=== PATIENT | male | born 1935 | race Caucasian/White ===

== ENCOUNTER → 2017-12-07 | Outpatient (CLI) | payer MEDICARE ==
[~2017-12-07] MED LIST: ACE325 PO; AMLO-96 PO; ASP325 PO; ASPI-879 PO; ATEN-1 PO; ATEN100T93 PO; BUM2 PO; CHOL10005 PO; CHOL100094 PO; DIA5 PO; DIAZ-308 PO; DICY20TA70 PO; DIG25 PO; DIGO250T76 PO; DULO30CA35 PO; DULO60CA56 PO; EZE10 PO; FEN145 PO; FENO145T PO; FIB PO; FLAX100030 PO; FLU45SYR17 IM; FURO-47 PO; GABA-547 PO; GABA-549 PO; GARL400T18 PO; GLUC-307 PO; HYDR-385 PO; LISI-349 PO; LISI-362 PO; LISI20TA29 PO; MAGN300C3 PO; MET60GMPT TOP; METF-410 PO; METF-420 PO; METF500T4 PO; METH4TAB66 PO; METR45CR9 TP; MULT-923 PO; NOR10 PO; NOR25 PO; OMEG-11 PO; OMEP-137 PO; OMEP-218 PO; PER PO; PHEN16.225 PO; PNEU0.5D3 IM; POTA-28 PO; POTA8TAB41 PO; PRE20 PO; SIL50 PO; SIMV-42 PO; SPIR25TA78 PO; TRAM-420 PO; TRIC15T TOP; TUM500 PO; WARF-12 PO; WARF-18 PO; WARF2.5T4 PO; [UNRECOGNIZED DRUG - CODE] PO; [UNRECOGNIZED DRUG - CODE] PO
[2017-12-07 11:31] LABS: PLATELET COUNT, AUTOMATED 289 K/uL (150-450)
== END ==
LOC: LAB 11:14
PROVIDERS: ATTEND Internal Medicine Nephrology
DX: I12.9 Hypertensive chronic kidney disease with stage 1 through stage 4 chronic kidney disease, or unspecified chronic kidney disease (principal); N18.3 Chronic kidney disease, stage 3 (moderate); E55.9 Vitamin D deficiency, unspecified
CPT/HCPCS: 36415; 82040; 82310; 82374; 82435; 82565; 82947; 84100; 84132; 84295; 84520; 85025

== ENCOUNTER → 2017-12-20 | Outpatient (CLI) | payer MEDICARE | LOC: LAB 13:59 | PROVIDERS: ATTEND Internal Medicine Nephrology | DX: I12.9 Hypertensive chronic kidney disease with stage 1 through stage 4 chronic kidney disease, or unspecified chronic kidney disease (principal); N18.3 Chronic kidney disease, stage 3 (moderate); R60.0 Localized edema; G25.81 Restless legs syndrome; D63.1 Anemia in chronic kidney disease | CPT/HCPCS: 36415; 82310; 82374; 82435; 82565; 82728; 82947; 83540; 83550; 84132; 84295; 84520 ==

== ENCOUNTER 2017-12-31 13:45 | Outpatient (RCR) | payer MEDICARE ==
--- NOTE | 2017-10-08 11:14 | PT INITIAL EVALUATION ---
MEDICAL DIAGNOSIS: pulmonary hypertension TREATMENT DIAGNOSIS: same, low back pain with radiating pain DATE OF ONSET: 10/07/14 SUBJECTIVE: Casey Pfeiffer presents to physical therapy with complaints of pulmonary hypertension and low back pain with radiating pain that started approximately 2-3 years ago. He reports that his low back pain has gotten so back that he can no longer sit on his bike and exercise. He states that he has a history of scoliosis and post-polio syndrome. He states that with post- polio syndrome you do not want to overdo it or else you will lose all your function. He states that his low back pain becomes worse with walking and better with sitting with his heating pain. He rates his pain with walking to be 9/10. He rates his usual pain while sitting with a heating pad to be 1-2/ 10. Furthermore, he rates his pain when he is not using the heating pad while siting to be 4-5/10. Pain location is L4-5, B PSIS and radiates down his R thigh to posterior capsule and described as achy/sharp. REHAB PROBLEM LIST: Increased Pain Decreased ROM Decreased Strength Decreased Endurance Decreased Balance Decreased Function Decreased ADL's Decreased Mobility Decreased Gait PREVIOUS MEDICAL HISTORY: See EMR OCCUPATION: Retired OBJECTIVE: Posture: B rounded shoulders, increased thoracic kyphosis, and decreased lumbar lordosis ROM: Trunk AROM: flexion: NIL with normal end feel. extension: NIL with normal end feel. R sidegliding: NIL with empty end feel. L sidegliding: NIL with empty end feel Strength: B LEs: 4/5 Palpation: TTP: over spinous process of L3-L5, PSIS which radiates to R thigh and into the R posterior capsule. Sensation: L1-S2 dermatomes intact Special Tests: Repeated trunk flexion: increased pain during and worse following movement. extension: increased pain during and better following movement. R and L sidegliding: increased pain during and worse following movements. Mobility: Independent Gait: With a cane, he demonstrated the following gait deviations: increased base of support, decreased B step lengths, decreased velocity, increased lateral trunk movement, decreased pelvic rotation, and no LOB during session. Other Objective Findings: Quadricep and achilles DTR's: 2+ bilaterally ASSESSMENT: Casey will benefit from skilled physical therapy to address the listed impairments to improve function and QOL. Based on signs and symptoms, it appears that he has a posterior derangement that centralized with extension based principles. Short Term Goals 3 weeks: She will demonstrate centralized low back pain to improve function and QOL. 6 weeks: She will demonstrate abolished low back pain to improve function function and return to prior level of function. Patient's Goals reduce back pain and then improve endurance PLAN: Patient to be seen for Manual Therapy/STM/MET Strengthening/condition Ice/Heat Range of Motion Spinal Stabilization Work Hardening/Cond Stretching Neuromuscular Re-ed Closed Chain Program Electrical Stim Posture/Body mechanics Gait Trg/Balance Trg Home Exercise Program Therapeutic Activities 2x/Week for 6 Weeks If you have any questions, comments, or concerns about this report or plan, please contact me at . Thank you, Joselito Diaz, PT, DPT ROBBD
--- NOTE | 2017-11-11 18:06 | PT PLAN OF CARE ---
Physician: Alexandr Moreira MD Patient is being seen: 2x/week Therapist: Joselito Diaz, PT, DPT Medical Diagnosis: pulmonary hypertension Treatment Diagnosis: same, low back pain with radiating pain Date of Onset: 10/07/14 Date of Initial Evaluation: 10/07/17 Date patient was last seen: 11/11/17 Number of treatments: 10 Number of cancellations/No shows: 0 INTERVENTIONS: Manual Therapy/STM/MET Strengthening/condition Ice/Heat Range of Motion Spinal Stabilization Work Hardening/Cond Stretching Neuromuscular Re-ed Closed Chain Program Electrical Stim Posture/Body mechanics Gait Trg/Balance Trg Home Exercise Program Therapeutic Activities Short Term Goals 3 weeks: She will demonstrate centralized low back pain to improve function and QOL. 6 weeks: She will demonstrate abolished low back pain to improve function function and return to prior level of function. Patient's Goals reduce back pain and then improve endurance Status of Patient's Goals: Progressing slowly Patient Compliance: Good Prognosis: Excellent Reasons for continuing therapy: This is a progress note for Casey Pfeiffer. He reports that he continues to perform his home exercise. He states that the pain continues to centralize and peripheralize depending on the activities that he is performing. He states that sleeping continues to peripheralize his pain and performing his home exercise centralized his low back pain. He rates his pain be 4-5/10. He continues to centralize with prone press ups with his hips shifted to the left. He continues to improve trunk AROM in all directions following each PT session. Furthermore, since we can not maintain the centralized low back pain for more than a day, I feel like the prognosis of eliminating his pain is decreased, however, he continues to demonstrate centralized pain, which is a necessary characteristic to be classified as a derangement, which has a 90% chance of abolishing his low back and returning to prior level of function. We will continue to centralize low back pain and abolish low back pain and then recovery his function to return to prior level of function. OBJECTIVE: Posture: B rounded shoulders, increased thoracic kyphosis, and decreased lumbar lordosis ROM: Trunk AROM: flexion: NIL with normal end feel. extension: NIL with normal end feel. R sidegliding: NIL with empty end feel. L sidegliding: NIL with empty end feel Strength: B LEs: 4/5 Palpation: TTP: over spinous process of L3-L5, PSIS which radiates to R thigh and into the R posterior capsule. Sensation: L1-S2 dermatomes intact Special Tests: Repeated trunk flexion: increased pain during and worse following movement. extension: increased pain during and better following movement. R and L sidegliding: increased pain during and worse following movements. Mobility: Independent Gait: With a cane, he demonstrated the following gait deviations: increased base of support, decreased B step lengths, decreased velocity, increased lateral trunk movement, decreased pelvic rotation, and no LOB during session. Other Objective Findings: Quadricep and achilles DTR's: 2+ bilaterally If you have any questions, comments, or concerns about this report or plan, please contact me at . Thank you, Joselito Diaz, PT, DPT ROBBD
--- NOTE | 2017-12-17 15:14 | PT PLAN OF CARE ---
Physician: Alexandr Moreira MD Patient is being seen: 2x/week Therapist: Joselito Diaz, PT, DPT Medical Diagnosis: pulmonary hypertension Treatment Diagnosis: same, low back pain with radiating pain Date of Onset: 10/07/14 Date of Initial Evaluation: 10/07/17 Date patient was last seen: 12/17/17 Number of treatments: 20 Number of cancellations/No shows: 0 INTERVENTIONS: Manual Therapy/STM/MET Strengthening/condition Ice/Heat Range of Motion Spinal Stabilization Work Hardening/Cond Stretching Neuromuscular Re-ed Closed Chain Program Electrical Stim Posture/Body mechanics Gait Trg/Balance Trg Home Exercise Program Therapeutic Activities Short Term Goals 3 weeks: She will demonstrate centralized low back pain to improve function and QOL. 6 weeks: She will demonstrate abolished low back pain to improve function function and return to prior level of function. Patient's Goals reduce back pain and then improve endurance Status of Patient's Goals: Progressing slowly Patient Compliance: Good Prognosis: Excellent Reasons for continuing therapy: This is a progress note for Casey Moore. He reports that he continues to perform his home exercise. He states that the pain continues to centralize and peripheralize depending on the activities that he is performing. He states that sleeping continues to peripheralize his pain and performing his home exercise centralized his low back pain. He reports that he continues to perform his specific exercise with good results, however, he reports that walking continues to be painful and has not improved. He rates his pain to be 2-4/10 in the centralized low back region. He continues to demonstrate centralization with his low back pain with increased trunk AROM in all directions, however, the reduction has not fully occurred. However, if it does not fully reduce in the next few weeks that signs and symptoms are pointing to the possibility of spinal stenosis and not true mechanical pain. OBJECTIVE: Posture: B rounded shoulders, increased thoracic kyphosis, and decreased lumbar lordosis ROM: Trunk AROM: flexion: NIL with normal end feel. extension: NIL with normal end feel. R sidegliding: NIL with empty end feel. L sidegliding: NIL with empty end feel Strength: B LEs: 4/5 Palpation: TTP: over spinous process of L3-L5, PSIS which radiates to R thigh and into the R posterior capsule. Sensation: L1-S2 dermatomes intact Special Tests: Repeated trunk flexion: increased pain during and worse following movement. extension: increased pain during and better following movement. R and L sidegliding: increased pain during and worse following movements. Mobility: Independent Gait: With a cane, he demonstrated the following gait deviations: increased base of support, decreased B step lengths, decreased velocity, increased lateral trunk movement, decreased pelvic rotation, and no LOB during session. Other Objective Findings: Quadricep and achilles DTR's: 2+ bilaterally If you have any questions, comments, or concerns about this report or plan, please contact me at . Thank you, Joselito Diaz, PT, DPT MTDD
[~2017-12-31 13:45] MED LIST changes: -WARF-18 PO; +WARF5TAB23 PO
--- NOTE | 2017-12-31 14:46 | PT PLAN OF CARE ---
Physician: Alexandr Moreira MD Patient is being seen: 2x/week Therapist: Joselito Diaz, PT, DPT Medical Diagnosis: pulmonary hypertension Treatment Diagnosis: same, low back pain with radiating pain Date of Onset: 10/07/14 Date of Initial Evaluation: 10/07/17 Date patient was last seen: 12/31/17 Number of treatments: 23 Number of cancellations: 1 INTERVENTIONS: Manual Therapy/STM/MET Strengthening/condition Ice/Heat Range of Motion Spinal Stabilization Work Hardening/Cond Stretching Neuromuscular Re-ed Closed Chain Program Electrical Stim Posture/Body mechanics Gait Trg/Balance Trg Home Exercise Program Therapeutic Activities Short Term Goals 3 weeks: She will demonstrate centralized low back pain to improve function and QOL.MET 6 weeks: She will demonstrate abolished low back pain to improve function function and return to prior level of function. Not Met, but progressing toward it and he will meet the goal in two weeks or less Patient's Goals reduce back pain and then improve endurance Status of Patient's Goals: Progressed well Patient Compliance: Good Prognosis: Excellent Reasons for continuing therapy: This is a discharge note for Casey Pfeiffer. He reports that he is doing really well. He states that he has gone periods with 0/ 10 low back pain. He reports that he continues to do his specific exercise every 2-3 hours with good results. He reports that he is walking much better and longer distances with decreased pain. Claude has progressed well within PT. He has demonstrated the following improvements: increased trunk AROM in all directions with normal end feels, centralized low back pain, and abolished radiating pain. Furthermore, he continues to have some centralized low back pain , however, if he continues his specific exercise as prescribed, I am 100% confident that his pain will completely resolve in the next two weeks and he has received the necessary education to prevent reoccurrences and how to manage the low back pain if it returns in the future. He feels that he can manage the rest of his care at home. As a result, he will be discharged from formal PT. OBJECTIVE: Posture: B rounded shoulders, increased thoracic kyphosis, and decreased lumbar lordosis ROM: Trunk AROM: flexion: NIL with normal end feel. extension: NIL with normal end feel. R sidegliding: NIL with normal end feel. L sidegliding: NIL with normal end feel Strength: B LEs: 4+/5 Palpation: TTP: over spinous process of L3-L5 Sensation: L1-S2 dermatomes intact Special Tests: Repeated trunk flexion: increased pain during and worse following movement. extension: increased pain during and better following movement. R and L sidegliding: increased pain during and worse following movements. Mobility: Independent Gait: With a cane, he demonstrated the following gait deviations: increased base of support, decreased B step lengths, decreased velocity, increased lateral trunk movement, decreased pelvic rotation, and no LOB during session. Other Objective Findings: Quadricep and achilles DTR's: 2+ bilaterally If you have any questions, comments, or concerns about this report or plan, please contact me at . Thank you, Joselito Diaz, PT, DPT ROBBD
== END 2017-12-31 18:00 | disposition home or self-care (01) ==
LOC: PT 13:45
PROVIDERS: ATTEND Internal Medicine
DX: R06.02 Shortness of breath (principal); I27.20 Pulmonary hypertension, unspecified; M54.41 Lumbago with sciatica, right side; M41.9 Scoliosis, unspecified; Z99.81 Dependence on supplemental oxygen; Z86.12 Personal history of poliomyelitis
CPT/HCPCS: 97162

== ENCOUNTER → 2018-01-04 | Outpatient (RCR) | payer MEDICARE | LOC: RESP 11-30 08:52 | PROVIDERS: ATTEND Internal Medicine | DX: I27.20 Pulmonary hypertension, unspecified (principal) | CPT/HCPCS: 94618; G0239 ==

== ENCOUNTER → 2018-01-19 | Outpatient (CLI) | payer MEDICARE | LOC: LAB 14:08 | PROVIDERS: ATTEND Internal Medicine Nephrology | DX: N18.3 Chronic kidney disease, stage 3 (moderate) (principal) | CPT/HCPCS: 36415; 82310; 82374; 82435; 82565; 82947; 84132; 84295; 84520 ==

== ENCOUNTER 2018-02-15 09:00 | Outpatient (RCR) | payer MEDICARE ==
[~2018-02-15 09:00] MED LIST changes: -FENO145T PO; +FENO145T36 PO
== END 2018-02-17 ==
LOC: RESP 09:00
PROVIDERS: ATTEND Internal Medicine
DX: I27.0 Primary pulmonary hypertension (principal)
CPT/HCPCS: 94618; 94667; G0239

== ENCOUNTER → 2018-05-02 | Outpatient (CLI) | payer MEDICARE ==
[~2018-05-02] MED LIST changes: -METF-410 PO; +METF-411 PO
--- NOTE | 2018-05-02 16:25 | EKG ---
FACILITY: [facility] - [place] PATIENT NAME: UNRULY EDWARDS : [id number] MR: [id number] V: [id number] EXAM DATE: ORDERING PHYSICIAN: LAURYN ARAIZA TECHNOLOGIST: SMITHARN Test Reason : CHEST PAIN Blood Pressure : / mmHG Vent. Rate : 052 BPM Atrial Rate : 053 BPM P-R Int : 000 ms QRS Dur : 116 ms QT Int : 428 ms P-R-T Axes : 000 -29 -54 degrees QTc Int : 398 ms Atrial fibrillation Nonspecific ST abnormality Abnormal ECG No previous ECGs available Confirmed by AILYN DE LA CRUZ ([id number]) on 05/03/2018 6:02:13 AM Referred By: LAURYN ARAIZA Confirmed By:AILYN DE LA CRUZ
== END ==
LOC: LAB 15:22
PROVIDERS: ATTEND Nurse Practitioner Family
DX: R94.31 Abnormal electrocardiogram [ECG] [EKG] (principal); R07.9 Chest pain, unspecified
CPT/HCPCS: 36415; 82040; 82247; 82310; 82374; 82435; 82565; 82947; 83036; 84075; 84132; 84155; 84295; 84450; 84460; 84484; 84520

== ENCOUNTER → 2018-06-10 | Outpatient (CLI) | payer MEDICARE ==
[~2018-06-10] MED LIST changes: +BUS5 PO; +FENO160T11 PO; +SPIR25TA80 PO
[2018-06-10 09:33] LABS: PLATELET COUNT, AUTOMATED 242 K/uL (150-450)
[2018-06-10 10:10] LABS: LDL CHOLESTEROL 121 mg/dl
== END ==
LOC: LAB 09:10
PROVIDERS: ATTEND Internal Medicine
DX: I48.91 Unspecified atrial fibrillation (principal); N18.3 Chronic kidney disease, stage 3 (moderate); E11.9 Type 2 diabetes mellitus without complications; R60.9 Edema, unspecified; I27.20 Pulmonary hypertension, unspecified
CPT/HCPCS: 36415; 80162; 81001; 83036; 84443; 85025; G0103; 82040; 82247; 82310; 82374; 82435; 82465; 82565; 82947; 83718; 84075; 84132; 84153; 84155; 84295; 84450; 84460; 84478; 84520

== ENCOUNTER → 2018-06-27 | Outpatient (CLI) | payer MEDICARE | LOC: LAB 10:32 | PROVIDERS: ATTEND Internal Medicine Nephrology | DX: N18.3 Chronic kidney disease, stage 3 (moderate) (principal) | CPT/HCPCS: 36415; 82040; 82310; 82374; 82435; 82565; 82728; 82947; 83540; 83550; 84100; 84132; 84295; 84520; 85027 ==

== ENCOUNTER → 2018-08-24 | Outpatient (CLI) | payer MEDICARE ==
[~2018-08-24] MED LIST changes: +AMLO-111 PO; -AMLO-96 PO; -METF-411 PO; +METF-450 PO
--- NOTE | 2018-08-24 12:17 | RADIOLOGY IMAGING REPORT ---
FACILITY: [facility] - [place] PATIENT NAME: Casey Pfeiffer : 1935 MR: [id number] V: [id number] EXAM DATE: ORDERING PHYSICIAN: CRISTIAN WASSERMAN TECHNOLOGIST: Location: [facility] Patient: Casey Pfeiffer : 1935 Visit/Account:[id number] Date of Sevice: 08/24/2018 Right upper extremity venous Doppler duplex ultrasound scan. HISTORY: Localized right upper extremity swelling, contusion. COMPARISON: None. A venous color flow Doppler duplex ultrasound scan with spectral analysis was performed on the upper extremity. The basilic vein, brachial veins, cephalic vein, axillary vein and internal jugular vein are unremarkable. The lateral aspect of the subclavian vein is unremarkable. The medial aspect of t he subclavian vein, the innominate vein, and the superior vena cava are obscured. A heterogeneous mass probably representing a hematoma measuring 3.9 x 2.7 x 2.4 cm is present in the soft tissues of the right forearm. Note that Doppler ultrasound is insensitive for evaluating the central veins of the chest. IMPRESSION: Right forearm mass suggesting a hematoma. Other etiologies are not excluded. Clinical correlation i s suggested. Negative for acute deep vein thrombosis. Report Dictated By: Doroteo Anne MD at 08/24/2018 12:09 PM Report E-Signed By: Doroteo Anne MD at 08/24/2018 12:12 PM WSN:[id number]
== END ==
LOC: US 10:49
PROVIDERS: ATTEND Physician Assistant
DX: S50.11XA Contusion of right forearm, initial encounter (principal); R22.31 Localized swelling, mass and lump, right upper limb; M79.81 Nontraumatic hematoma of soft tissue
CPT/HCPCS: 93970

== ENCOUNTER → 2018-09-21 | Outpatient (CLI) | payer MEDICARE ==
[~2018-09-21] MED LIST changes: +FLUT16SP19 NS; +PRAM0.1225 PO
[2018-09-21 12:28] LABS: PLATELET COUNT, AUTOMATED 271 K/uL (150-450)
[2018-09-21 12:54] LABS: LDL CHOLESTEROL 99 mg/dl
== END ==
LOC: LAB 11:45
PROVIDERS: ATTEND Internal Medicine
DX: I48.91 Unspecified atrial fibrillation (principal); N18.3 Chronic kidney disease, stage 3 (moderate); E11.9 Type 2 diabetes mellitus without complications; R60.9 Edema, unspecified; I27.20 Pulmonary hypertension, unspecified; I83.009 Varicose veins of unspecified lower extremity with ulcer of unspecified site
CPT/HCPCS: 36415; 80162; 82040; 82247; 82310; 82374; 82435; 82465; 82565; 82947; 83036; 83718; 84075; 84132; 84155; 84295; 84443; 84450; 84460; 84478; 84520; 84550; 85025

== ENCOUNTER 2018-10-10 14:23 | Outpatient (RCR) | payer MEDICARE | END 2018-10-10 14:24 | disposition home or self-care (01) | LOC: PT 14:23 | PROVIDERS: ATTEND Internal Medicine | DX: Z02.9 Encounter for administrative examinations, unspecified (principal) ==

== ENCOUNTER → 2019-01-23 | Outpatient (CLI) | payer MEDICARE ==
[~2019-01-23] MED LIST changes: -AMLO-111 PO; +AMLO-125 PO
== END ==
LOC: LAB 10:15
PROVIDERS: ATTEND Internal Medicine Nephrology
DX: I12.9 Hypertensive chronic kidney disease with stage 1 through stage 4 chronic kidney disease, or unspecified chronic kidney disease (principal); N40.0 Benign prostatic hyperplasia without lower urinary tract symptoms; N18.3 Chronic kidney disease, stage 3 (moderate); I48.2 Chronic atrial fibrillation; R60.0 Localized edema; E78.5 Hyperlipidemia, unspecified; E55.9 Vitamin D deficiency, unspecified
CPT/HCPCS: 36415; 80162; 82040; 82306; 82310; 82374; 82435; 82565; 82570; 82947; 83970; 84100; 84132; 84156; 84295; 84520; 85018

== ENCOUNTER → 2019-02-28 | Outpatient (CLI) | payer MEDICARE ==
[~2019-02-28] MED LIST changes: +BLOO-1318 MC; +BLOO-960 MC; +FLAS1EAC2 TD; +FLAS1KIT2; +INSU100I30 SQ; +LANC-1149 MC; +NEED-498 MC; +QUET25TA30 PO
[2019-02-28 08:52] LABS: PLATELET COUNT, AUTOMATED 284 K/uL (150-450)
--- NOTE | 2019-02-28 09:37 | RADIOLOGY IMAGING REPORT ---
FACILITY: [facility] [place] PATIENT NAME: Casey Pfeiffer : 1935 MR: [id number] V: [id number] EXAM DATE: ORDERING PHYSICIAN: ELGIN WEI TECHNOLOGIST: Location: [facility] - [place] Patient: Casey Pfeiffer : 1935 Visit/Account:[id number] Date of Sevice: 02/28/2019 Exam type: CHEST PA LAT History: Dyspnea Comparison: July 12, 2015. Findings: The lungs are free of acute effusions, infiltrates or edema. Cardiac silhouette is mildly enlarged. There is moderate ectasia the thoracic aorta. The nodular density projecting over the right lung ba se appears stable when compared the prior study and is likely a nipple shadow since the prior CT the chest demonstrated no pulmonary nodule in this location. There are moderate spondylotic changes of t he thoracic spine. IMPRESSION: 1. No evidence of acute pulmonary consolidation Cardiac silhouette is mildly enlarged although unchanged Report Dictated By: Shelia Garcia MD at 02/28/2019 9:12 AM Report E-Signed By: Shelia Garcia MD at 02/28/2019 9:32 AM WSN:[email or web address]
== END ==
LOC: LAB 08:25
PROVIDERS: ATTEND Internal Medicine
DX: N18.3 Chronic kidney disease, stage 3 (moderate) (principal); E11.9 Type 2 diabetes mellitus without complications; R94.6 Abnormal results of thyroid function studies; I10 Essential (primary) hypertension; N40.0 Benign prostatic hyperplasia without lower urinary tract symptoms; I48.91 Unspecified atrial fibrillation; Z79.899 Other long term (current) drug therapy; Z51.81 Encounter for therapeutic drug level monitoring; R06.00 Dyspnea, unspecified
CPT/HCPCS: 36415; 71046; 80162; 81001; 82040; 82247; 82310; 82374; 82435; 82465; 82565; 82607; 82746; 82947; 83036; 83718; 84075; 84132; 84153; 84155; 84295; 84443; 84450; 84460; 84478; 84520; 85025

== ENCOUNTER → 2019-03-02 | Outpatient (CLI) | payer MEDICARE ==
[~2019-03-02] MED LIST changes: +ACET500T68 PO; +CALC-515 PO; +CALC625T57 PO; +CHON400C PO; +FLAX100041 PO; +GLUC100026 PO; +MAGN400T10 PO; +MULT-27 PO; +OMEG-5 PO; +ZINC50TA2 PO; +[UNRECOGNIZED DRUG - CODE] PO
--- NOTE | 2019-03-03 09:42 | EKG ---
FACILITY: [facility] - [place] PATIENT NAME: UNRULY EDWARDS : [id number] MR: [id number] V: [id number] EXAM DATE: ORDERING PHYSICIAN: ELGIN WEI TECHNOLOGIST: MARIIA Test Reason : CHEST PAIN Blood Pressure : / mmHG Vent. Rate : 056 BPM Atrial Rate : 062 BPM P-R Int : 000 ms QRS Dur : 122 ms QT Int : 418 ms P-R-T Axes : 000 -29 -09 degrees QTc Int : [address] and T wave abnormality, consider anterior ischemia Abnormal ECG When compared with ECG of 02-MAY-2018 14:33, T wave inversion now evident in Anterior leads Confirmed by ELGIN WEI ([id number]) on 03/06/2019 1:06:29 PM Referred By: MARLEY Confirmed By:ELGIN WEI
== END ==
LOC: RESP 15:53
PROVIDERS: ATTEND Internal Medicine
DX: R94.31 Abnormal electrocardiogram [ECG] [EKG] (principal)

== ENCOUNTER → 2019-03-03 | Outpatient (CLI) | payer MEDICARE ==
--- NOTE | 2019-03-03 12:01 | RADIOLOGY IMAGING REPORT ---
FACILITY: [facility] - [place] PATIENT NAME: Casey Pfeiffer : 1935 MR: [id number] V: [id number] EXAM DATE: ORDERING PHYSICIAN: ELGIN WEI TECHNOLOGIST: Location: [facility] Patient: Casey Pfeiffer : 1935 Visit/Account:[id number] Date of Sevice: 03/03/2019 Examination: MR brain without contrast History: Change in mental status Comparison: None Technique: Sagittal T1, axial diffusion, axial FLAIR and axial T2 acquisitions obtained through the b rain. No additional sequences obtained as the patient cannot tolerate further imaging. Findings: Diffusion: None Ventricles: Normal Midline shift: None Extraaxial fluid: None. Midline craniocervical structures: Degenerative pannus posterior to the dens, otherwise unremarkable. Parenchyma: A few scattered punctate white matter high signal foci. Minimal to mild confluent perive ntricular white matter high signal. Vascular flow voids: Normal Orbits and paranasal sinuses: Normal Other: No significant additional finding. Impression: 1. No acute intracranial abnormality. 2. Minimal to mild chronic small vessel ischemic change. 3. No gradient acquisition obtained as the patient was unable to tolerate a complete scan. 4. Otherwise unremarkable brain MR. Report Dictated By: Chaim Johnson MD at 03/03/2019 11:52 AM Report E-Signed By: Chaim Johnson MD at 03/03/2019 11:56 AM WSN:[id number]
== END ==
LOC: MRI 06:50
PROVIDERS: ATTEND Internal Medicine
DX: R41.82 Altered mental status, unspecified (principal)
CPT/HCPCS: 70551

== ENCOUNTER 2019-03-04 05:26 | Inpatient (IN) | payer MEDICARE ==
[~2019-03-04] VITALS: Ht 182.9 cm; Wt 127.1 kg
[~2019-03-04 05:26] MED LIST changes: -ACET500T68 PO; -CALC-515 PO; -CALC625T57 PO; -CHON400C PO; -FLAX100041 PO; -GLUC100026 PO; -MAGN400T10 PO; -MULT-27 PO; -OMEG-5 PO; -ZINC50TA2 PO; -[UNRECOGNIZED DRUG - CODE] PO
--- NOTE | 2019-03-04 05:33 | ER Report ---
History and Physical Time Seen By MD: 05:31 (NEGRO JEAN DO) HPI/ROS CHIEF COMPLAINT: Altered mental status HISTORY OF PRESENT ILLNESS: 83-year-old male brought in by his family with altered mental status and agitation. Patient had several of his psychiatric medications withdrawn. He said new medications added. Patient's also been taken off of his tramadol 50 mg 3 times a day, which is taken for 5 years for chronic pain treatment. Patient's not been able to sleep for the last 2 days. He's been restless and agitated. Complaining of pain, likely tramadol withdrawal. Family gave him a shot of alcohol last night to see if that would help him relax. Patient had a noncontrast brain MRI yesterday morning, which was unremarkable that's noted in the record. REVIEW OF SYSTEMS: Respiratory: No cough, no dyspnea. Cardiovascular: No chest pain, no palpitations. Gastrointestinal: No vomiting, no abdominal pain. Musculoskeletal: As above (NEGRO JEAN DO) Allergies: Coded Allergies: No Known Drug Allergies (Verified , 03/04/19) Home Meds Active Scripts Flash Glucose Sensor (Freestyle [place] 14 Day Sensor) 1 Each Kit, UNIT Q2WK, #2 11 Refills Prov:ELGIN MOREIRA MD 03/02/19 Flash Glucose Scanning [place] (Freestyle [place] 14 Day [place]) 1 Each Each, UNIT TD DIRECTED, #1 Prov:ELGIN MOREIRA MD 03/02/19 Lancets (ONE TOUCH LANCETS) 1 Each Each, EACH MC TID, #100 11 Refills Prov:ELGIN MOREIRA MD 03/02/19 One Touch Ultra Test Strips (ONE TOUCH ULTRA TEST STRIPS) 1 Each Strip, EACH MC ONCE, #100 11 Refills Prov:ELGIN MOREIRA MD 03/02/19 Blood-Glucose Meter (BLOOD GLUCOSE METER) 1 Each Each, EACH MC ONCE, #1 Prov:ELGIN MOREIRA MD 03/02/19 [place], Insulin Disposable (INSULIN PEN NEEDLE) 1 Each Dis.needle, EACH MC ONCE, #100 5 Refills Prov:ELGIN MOREIRA MD 03/02/19 Quetiapine Fumarate (SEROQUEL) 25 Mg Tablet, 25 MG PO QHS, #30 TAB 3 Refills Prov:ELGIN MOREIRA MD 03/02/19 Insulin Glargine 100 Un/Ml Pen (LANTUS SOLOSTAR PEN) 100 Unit/1 Ml Insuln.pen, 15 UNIT SQ HS, #5 BOX 3 Refills Prov:ELGIN MOREIRA MD 03/02/19 Warfarin Sodium (WARFARIN SODIUM) 5 Mg Tablet, 1 TAB PO QDAY, #90 TAB 3 Refills Prov:ELGIN MOREIRA MD 02/10/19 Fenofibrate (FENOFIBRATE) 160 Mg Tablet, 160 MG PO QDAY, #90 TAB 4 Refills Prov:ELGIN MOREIRA MD 02/06/19 Digoxin (DIGOXIN) 250 Mcg Tablet, 1 TAB PO QDAY, #90 TAB 1 Refill Prov:ELGIN MOREIRA MD 01/03/19 Atenolol (ATENOLOL) 50 Mg Tablet, 1 TAB PO QDAY, #90 TAB 4 Refills Prov:ELGIN MOREIRA MD 05/19/18 Lisinopril (LISINOPRIL) 10 Mg Tablet, 10 MG PO QDAY, #90 TAB 3 Refills Prov:ELGIN MOREIRA MD 05/18/18 Reported Medications Tramadol Hcl (TRAMADOL HCL) 50 Mg Tablet, 50 MG PO TID PRN for PAIN, TAB 03/04/19 Furosemide (FUROSEMIDE) 40 Mg Tablet, 1-2 TAB PO BID, TAB 03/04/19 Aspirin/Calcium Carbonate/Mag (ASPIRIN BUFFERED 325 MG TAB) 325 Mg Tablet, 325 MG PO DAILY 07/11/15 Cholecalciferol (Vitamin D3) (VITAMIN D3) 1,000 Unit Tablet, 1000 TAB PO QDAY, #100 TAB 4 Refills 03/14/15 Omeprazole (OMEPRAZOLE) 20 Mg Tablet.dr, 1 TAB PO DAILY, #100 TAB TAKE ONE TABLET BY MOUTH TWICE A DAY 03/14/15 Metronidazole (METROGEL) 60 Gm Gel, 60 GM TOP, GEL 06/27/14 Discontinued Scripts Furosemide (FUROSEMIDE) 40 Mg Tablet, 2-3 TAB PO BID, #540 TAB 2 Refills Prov:LIZETTE AMEZCUA PHARMD 11/28/18 Tramadol Hcl (TRAMADOL HCL) 50 Mg Tablet, 1 TAB PO TID PRN for pain, #90 TAB 5 Refills Prov:ELGIN MOREIRA MD 10/07/18 Duloxetine Hcl (CYMBALTA) 60 Mg Capsule., 60 MG PO QDAY, #90 CAP 1 Refill Prov:ELGIN MOREIRA MD 02/10/19 Dicyclomine Hcl (DICYCLOMINE HCL) 20 Mg Tablet, 1 TAB PO PRN, #90 TAB 1 Refill Prov:ELGIN MOREIRA MD 02/10/19 Buspirone Hcl (BUSPIRONE HCL) 5 Mg Tab, 5 MG PO BID PRN for anxiety, #60 TAB 5 Refills Prov:ELGIN MOREIRA MD 01/03/19 Fluticasone Prop 50 Mcg Ns (FLONASE 50 MCG NS) 16 Gm [place].susp, 2 SPRAYS NS QDAY, #1 BOT 3 Refills Prov:ELGIN MOREIRA MD 12/13/18 Pramipexole Di-Hcl (MIRAPEX) 0.125 Mg Tablet, 0.125 MG PO QHS PRN for RLS, #90 TAB 2 Refills Prov:ELGIN MOREIRA MD 10/03/18 Past Medical/Surgical History Past Medical History Neurologic: Reports hx of: neuropathy (numbness in feet and pain in hands. gabapentin started 01/06 with change to nortriptyline 05/06. more swelling with the gabapentin. 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 ) Cardiovascular: Reports hx of: atrial fibrillation (chronic since 1982. Had cardioversion without benefit. ) edema (chronic and 2 plus in both legs. ) hyperlipidemia (Tends to low HDL of 30. didn't tolerate statins. ) hypertension (Tx for many years. ) hypertriglyceridemia other CV history (normal myoview test in 2003. ) Respiratory: Reports hx of: pulmonary hypertension (mild by echo in 2003. ) other respiratory history (peak flow 430 in 2010. ) Gastrointestinal: Reports hx of: GERD (for years. ) Genitourinary: Reports hx of: benign prostatic hypertro (Has seen Dr. Long and benign prostate bx. ) chronic renal failure (Noted in . creat 1.4 in and 1.7 in 12/06. Sees Dr. 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 ) Musculoskeletal: Reports hx of: back pain (lumbar MRI in [address] Anguiano. Has DDD. ) neck pain (chronic. Has some numbness in fingers. Saw Dr. Yu in 2013. limited extens) Integumentary: Reports hx of: other integumentary hx (rash on chest treated with metrogel. ) Psychiatric: Reports hx of: depression (?. He feels potassium helps with mood. ) Endocrine: Reports hx of: obesity (noct. oximetry 91% in 2013. no evidence for apnea. ) other endocrine history (elevated glucose with a1c of 6.3 in 2008 so metformin started. ) Hematology/oncology (M): Denies hx of: prostate cancer Infectious disease: Reports hx of: other infectious disease (polio in 1946. right leg shorter and has a lift in right shoe. ) Events: REPORTS HX OF: Other events (abstracted 01/06. Annual in early 01/06. ) (NEGRO JEAN DO) Reviewed Nurses Notes: Yes Old Medical Records Reviewed: Yes (NEGRO JEAN DO) Hx Smoking: No Smoking Status: Never Smoker (NEGRO JEAN DO) Constitutional Vital Sign - Last 24 Hours 03/04/19 03/04/19 03/04/19 03/04/19 05:33 05:39 05:56 06:41 Temp 99.4 Pulse 74 97 99 Resp 24 B/P (MAP) 125/62 Pulse Ox 95 95 95 O2 Delivery Nasal Cannula O2 Flow Rate 3.0 03/04/19 03/04/19 03/04/19 03/04/19 06:56 07:01 07:16 07:31 Pulse 107 83 79 87 Pulse Ox 93 95 96 97 03/04/19 03/04/19 03/04/19 07:46 08:01 08:03 Pulse 77 74 B/P (MAP) 119/57 (77) Pulse Ox 94 96 (CONNIE PHELPS MD) Physical Exam General Appearance: The patient is alert, has no immediate need for airway protection and no current signs of toxicity., Agitated, restless HEENT: Pupils equal and round no injection. TMs normal, oropharynx with dry mucous membranes Respiratory: Chest is non tender, lungs are clear to auscultation. Cardiac: regular rate and rhythm Gastrointestinal: Abdomen is soft and non tender, no masses, bowel sounds normal. Musculoskeletal: Neck: Neck is supple and non tender. No thyromegaly Extremities have full range of motion and are non tender. 1+ edema bilaterally, stasis dermatitis changes Skin: No rashes or lesions. DIFFERENTIAL DIAGNOSIS: After history and physical exam differential diagnosis was considered for altered mental status including but not limited to hypoglycemia, infectious process, electrolyte abnormality,, medication withdrawal, medication side effect, medication adverse reaction head injury and intoxicants. (NEGRO JEAN DO) Medical Decision Making Data Points Result Diagram: 03/05/19 0708 03/05/19 0708 Laboratory Hematology Test 03/04/19 05:39 03/04/19 06:09 Red Blood Count 4.39 M/uL (4.00-5.60) Mean Corpuscular Volume 85.9 fL (80.0-96.0) Mean Corpuscular Hemoglobin 29.5 pg (26.0-33.0) Mean Corpuscular Hemoglobin Concent 34.4 g/dL (32.0-36.0) Red Cell Distribution Width 15.9 % (11.5-14.5) Mean Platelet Volume 8.0 fL (7.2-11.1) Neutrophils (%) (Auto) 66.6 % (39.4-72.5) Lymphocytes (%) (Auto) 21.7 % (17.6-49.6) Monocytes (%) (Auto) 8.3 % (4.1-12.4) Eosinophils (%) (Auto) 2.0 % (0.4-6.7) Basophils (%) (Auto) 1.4 % (0.3-1.4) Nucleated RBC Relative Count (auto) 0.0 /100WBC Neutrophils # (Auto) 5.4 K/uL (2.0-7.4) Lymphocytes # (Auto) 1.8 K/uL (1.3-3.6) Monocytes # (Auto) 0.7 K/uL (0.3-1.0) Eosinophils # (Auto) 0.2 K/uL (0.0-0.5) Basophils # (Auto) 0.1 K/uL (0.0-0.1) Nucleated RBC Absolute Count (auto) 0.00 K/uL Sodium Level 134 mmol/L (137-145) Potassium Level 4.0 mmol/L (3.5-5.0) Chloride Level 100 mmol/L (98-107) Carbon Dioxide Level 22 mmol/L (22-30) Blood Urea Nitrogen 33 mg/dl (9-21) Creatinine 1.70 mg/dl (0.66-1.25) Glomerular Filtration Rate Calc 38.7 Random Glucose 363 mg/dl (75-110) Calcium Level 9.0 mg/dl (8.4-10.2) Total Bilirubin 0.4 mg/dl (0.2-1.3) Aspartate Amino Transf (AST/SGOT) 45 U/L (0-35) Alanine Aminotransferase (ALT/SGPT) 50 U/L (0-56) Alkaline Phosphatase 99 U/L (0-126) Troponin I 0.032 ng/ml Total Protein 5.8 g/dl (6.3-8.2) Albumin 3.6 g/dl (3.5-5.0) Digoxin Level 0.9 ng/ml Digoxin Last Dose Date unk Digoxin Last Dose Time unk Serum Alcohol 17 mg/dl Urine Color Yellow Urine Clarity Clear Urine pH 6.0 pH (4.8-9.5) Urine Specific [place] 1.012 Urine Protein Negative mg/dL (NEGATIVE) Urine Glucose (UA) 150 mg/dL (NEGATIVE) Urine Ketones Negative mg/dL (NEGATIVE) Urine Blood Negative (NEGATIVE) Urine Nitrite Negative (NEGATIVE) Urine Bilirubin Negative (NEGATIVE) Urine Urobilinogen Negative mg/dL (0.2-1.9) Urine Leukocyte Esterase Negative (NEGATIVE) Urine RBC <1 /HPF (0-2/HPF) Urine WBC <1 /HPF (0-5/HPF) Urine Squamous Epithelial Cells None /LPF (</=FEW) Urine Bacteria Negative /HPF (NONE-FEW) Urine Mucus None /HPF (NONE-FEW) Urine Opiates Screen Negative Urine Barbiturates Screen Negative Ur Tricyclic Antidepressants Screen Negative Urine Phencyclidine Screen Negative Urine Amphetamines Screen Negative Urine Benzodiazepines Screen Negative Urine Cocaine Screen Negative Urine Cannabinoids Screen Negative Chemistry Test 03/04/19 05:39 03/04/19 06:09 White Blood Count 8.1 k/uL (4.5-11.0) Red Blood Count 4.39 M/uL (4.00-5.60) Hemoglobin 13.0 g/dL (14.0-18.0) Hematocrit 37.7 % (42.0-52.0) Mean Corpuscular Volume 85.9 fL (80.0-96.0) Mean Corpuscular Hemoglobin 29.5 pg (26.0-33.0) Mean Corpuscular Hemoglobin Concent 34.4 g/dL (32.0-36.0) Red Cell Distribution Width 15.9 % (11.5-14.5) Platelet Count 259 K/uL (150-450) Mean Platelet Volume 8.0 fL (7.2-11.1) Neutrophils (%) (Auto) 66.6 % (39.4-72.5) Lymphocytes (%) (Auto) 21.7 % (17.6-49.6) Monocytes (%) (Auto) 8.3 % (4.1-12.4) Eosinophils (%) (Auto) 2.0 % (0.4-6.7) Basophils (%) (Auto) 1.4 % (0.3-1.4) Nucleated RBC Relative Count (auto) 0.0 /100WBC Neutrophils # (Auto) 5.4 K/uL (2.0-7.4) Lymphocytes # (Auto) 1.8 K/uL (1.3-3.6) Monocytes # (Auto) 0.7 K/uL (0.3-1.0) Eosinophils # (Auto) 0.2 K/uL (0.0-0.5) Basophils # (Auto) 0.1 K/uL (0.0-0.1) Nucleated RBC Absolute Count (auto) 0.00 K/uL Glomerular Filtration Rate Calc 38.7 Calcium Level 9.0 mg/dl (8.4-10.2) Total Bilirubin 0.4 mg/dl (0.2-1.3) Aspartate Amino Transf (AST/SGOT) 45 U/L (0-35) Alanine Aminotransferase (ALT/SGPT) 50 U/L (0-56) Alkaline Phosphatase 99 U/L (0-126) Troponin I 0.032 ng/ml Total Protein 5.8 g/dl (6.3-8.2) Albumin 3.6 g/dl (3.5-5.0) Digoxin Level 0.9 ng/ml Digoxin Last Dose Date unk Digoxin Last Dose Time unk Serum Alcohol 17 mg/dl Urine Color Yellow Urine Clarity Clear Urine pH 6.0 pH (4.8-9.5) Urine Specific [place] 1.012 Urine Protein Negative mg/dL (NEGATIVE) Urine Glucose (UA) 150 mg/dL (NEGATIVE) Urine Ketones Negative mg/dL (NEGATIVE) Urine Blood Negative (NEGATIVE) Urine Nitrite Negative (NEGATIVE) Urine Bilirubin Negative (NEGATIVE) Urine Urobilinogen Negative mg/dL (0.2-1.9) Urine Leukocyte Esterase Negative (NEGATIVE) Urine RBC <1 /HPF (0-2/HPF) Urine WBC <1 /HPF (0-5/HPF) Urine Squamous Epithelial Cells None /LPF (</=FEW) Urine Bacteria Negative /HPF (NONE-FEW) Urine Mucus None /HPF (NONE-FEW) Urine Opiates Screen Negative Urine Barbiturates Screen Negative Ur Tricyclic Antidepressants Screen Negative Urine Phencyclidine Screen Negative Urine Amphetamines Screen Negative Urine Benzodiazepines Screen Negative Urine Cocaine Screen Negative Urine Cannabinoids Screen Negative Toxicology Test 03/04/19 05:39 03/04/19 06:09 Digoxin Level 0.9 ng/ml Digoxin Last Dose Date unk Digoxin Last Dose Time unk Serum Alcohol 17 mg/dl Urine Opiates Screen Negative Urine Barbiturates Screen Negative Ur Tricyclic Antidepressants Screen Negative Urine Phencyclidine Screen Negative Urine Amphetamines Screen Negative Urine Benzodiazepines Screen Negative Urine Cocaine Screen Negative Urine Cannabinoids Screen Negative Urinalysis Test 03/04/19 06:09 Urine Color Yellow Urine Clarity Clear Urine pH 6.0 pH (4.8-9.5) Urine Specific [place] 1.012 Urine Protein Negative mg/dL (NEGATIVE) Urine Glucose (UA) 150 mg/dL (NEGATIVE) Urine Ketones Negative mg/dL (NEGATIVE) Urine Blood Negative (NEGATIVE) Urine Nitrite Negative (NEGATIVE) Urine Bilirubin Negative (NEGATIVE) Urine Urobilinogen Negative mg/dL (0.2-1.9) Urine Leukocyte Esterase Negative (NEGATIVE) Urine RBC <1 /HPF (0-2/HPF) Urine WBC <1 /HPF (0-5/HPF) Urine Squamous Epithelial Cells None /LPF (</=FEW) Urine Bacteria Negative /HPF (NONE-FEW) Urine Mucus None /HPF (NONE-FEW) (CONNIE PHELPS MD) EKG/Imaging EKG Interpretation 12 lead EK Rhythm: Atrial fibrillation with a rate of 82 bpm [place]: normal QRS: normal ST segments: ST slurring consistent with ST depression/dig effect but unchanged on comparison to previous EKG dated 05/02/18 and 07/12/15 Imaging MRI from yesterday morning Examination: MR brain without contrast History: Change in mental status Comparison: None Technique: Sagittal T1, axial diffusion, axial FLAIR and axial T2 acquisitions obtained through the brain. No additional sequences obtained as the patient cannot tolerate further imaging. Findings: Diffusion: None Ventricles: Normal Midline shift: None Extraaxial fluid: None. Midline craniocervical structures: Degenerative pannus posterior to the dens, otherwise unremarkable. Parenchyma: A few scattered punctate white matter high signal foci. Minimal to mild confluent periventricular white matter high signal. Vascular flow voids: Normal Orbits and paranasal sinuses: Normal Other: No significant additional finding. Impression: 1. No acute intracranial abnormality. 2. Minimal to mild chronic small vessel ischemic change. 3. No gradient acquisition obtained as the patient was unable to tolerate a complete scan. 4. Otherwise unremarkable brain MR. (NEGRO JEAN DO) ED Course/Re-evaluation Clinical Indication for ER IV: IV Access ED Course Care was turned over to Dr. Phelps at shift change. Patient's family was reluctant to take him home. He'll likely need to be admitted to the medicine service to monitor his symptoms while he initiates and withdraws from numerous medications. Decision to Disposition Date: Mar 04, 2019 Decision to Disposition Time: 06:55 (NEGRO JEAN DO) ED Course Continues to be altered, aggitated, and a fall risk on coumadin. Family can not care for him at home. Likely withdawal from multiple medications. WIll admit to the hospital for further stabilization Decision to Disposition Date: Mar 04, 2019 Decision to Disposition Time: 08:42 (CONNIE PHELPS MD) Depart Departure Latest Vital Signs Vital Signs Date Time Temp Pulse Resp B/P (MAP) Pulse Ox O2 Delivery O2 Flow Rate FiO2 03/04/19 08:03 119/57 (77) 03/04/19 08:01 74 96 03/04/19 05:39 3.0 03/04/19 05:33 99.4 24 Nasal Cannula (CONNIE PHELPS MD) Impression: Primary Impression: Medication withdrawal Additional Impressions: Opiate withdrawal Altered mental status, unspecified Condition: Improved Disposition: Admitted from ER Referrals: ELGIN MOREIRA MD (PCP) Patient Instructions: Adverse Drug Reaction (ED) Additional Instructions: Resumed taking tramadol 50 mg 3 times daily Continue with other medication changes as planned by Dr. Moreira Follow-up with Dr. Moreira next week Problem Qualifiers Primary Impression: Medication withdrawal Substance type: opioid Qualified Codes: F11.23 - Opioid dependence with withdrawal Additional Impressions: Altered mental status, unspecified Altered mental status type: disorientation Qualified Codes: R41.0 - Disorientation, unspecified NEGRO JEAN DO Mar 04, 2019 05:33 CONNIE PHELPS MD Mar 04, 2019 08:42
[2019-03-04] MEDS ORDERED: MORPHINE 2 MG/ML SYR IVP ONE ×2 (05:50→06:30)
[2019-03-04 05:56] LABS: PLATELET COUNT, AUTOMATED 259 K/uL (150-450)
--- NOTE | 2019-03-04 06:09 | EKG ---
FACILITY: [facility] PATIENT NAME: UNRULY EDWARDS : [id number] MR: [id number] V: [id number] EXAM DATE: ORDERING PHYSICIAN: NEGRO JEAN TECHNOLOGIST: MIGUEL Richards Reason : Blood Pressure : / mmHG Vent. Rate : 082 BPM Atrial Rate : 082 BPM P-R Int : 000 ms QRS Dur : 122 ms QT Int : 388 ms P-R-T Axes : 000 -32 102 degrees QTc Int : 453 ms Atrial fibrillation Left axis deviation ST depression, consider subendocardial injury or digitalis effect Abnormal ECG Confirmed by KARLA NUNEZ ([id number] on 03/04/2019 6:33:58 AM Referred By: Confirmed By:KARLA NUNEZ
[2019-03-04] MEDS ORDERED: ONDANSETRON 4 MG/2 ML VIAL IVP ONE (06:25)
[2019-03-04] MEDS ORDERED: FURO-47 PO (07:01)
[2019-03-04 09:03] VITALS: BP 123/71
[2019-03-04] MEDS ORDERED: TRAM-420 PO (09:30)
--- NOTE | 2019-03-04 11:46 | History & Physical ---
History of Present Illness History of Present Illness 83yo male with h/o RLS, chronic pain and atrial fibrillation who was brought to the ER for worsening agitation, pacing, anger, and restlessness. He was started on Mirapex a couple of months ago for RLS, which helped some. Over the last couple of months, he has had progressive chronic movement of his legs and arms. He began having visual/auditory hallucinations and vivid, violent dreams that carried over into the waking state about 2 weeks ago which were progressively worsening. 5 days ago, the Mirapex was stopped. However, his symptoms progressed. He saw his PCP 2 days ago and his Cymbalta, Dicyclomine, and Buspar were stopped. The tid Tramadol was changed to prn. He was started on Seroquel 25mg at night. Since then, the patient has only slept for 20 minutes at time. He is getting very angry that he can't sleep and is still having the symptoms. This morning he was pacing the house, taking on/off his clothes/O2, and was very agitated. Because of the progression of symptoms he was brought in by family. He denies chills, but is hot a lot. He hasn't lost weight but has some intermittent nausea for years. He vomited this morning a clear substance. He denies diarrhea, currently. He denies cp/sob. He does get "dizzy" and has trouble keeping his balance. He fell this morning and injured his low back. He has been having falls about every day for the last couple of days. He denies palpitations or LOC. No focal weakness or sensation of the world spinning. He felt a pop in his right arm and developed bruising a couple of days ago after he was pulling on his O2 tubing. In the ER, he recieved IV morphine. His family reports that he is much calmer and less agitated. History Problems: (1) Low back pain Status: Chronic (2) Atrial fibrillation Onset Date: 07/13/2014 Status: Chronic (3) Pulmonary hypertension Status: Acute (4) Gastroesophageal reflux disease Status: Acute (5) Depression Status: Acute (6) Obesity Status: Acute (7) Hypertension Status: Chronic (8) Diabetes mellitus type 2, controlled Status: Acute (9) Anxiety Status: Acute Home Meds Active Scripts Flash Glucose Sensor (Freestyle [place] 14 Day Sensor) 1 Each Kit, UNIT Q2WK, #2 11 Refills Prov:ELGIN WEI MD 03/02/19 Flash Glucose Scanning [place] (Freestyle [place] 14 Day [place]) 1 Each Each, UNIT TD DIRECTED, #1 Prov:ELGIN WEI MD 03/02/19 Lancets (ONE TOUCH LANCETS) 1 Each Each, EACH MC TID, #100 11 Refills Prov:ELGIN WEI MD 03/02/19 One Touch Ultra Test Strips (ONE TOUCH ULTRA TEST STRIPS) 1 Each Strip, EACH MC ONCE, #100 11 Refills Prov:ELGIN WEI MD 03/02/19 Blood-Glucose Meter (BLOOD GLUCOSE METER) 1 Each Each, EACH MC ONCE, #1 Prov:ELGIN WEI MD 03/02/19 [place], Insulin Disposable (INSULIN PEN NEEDLE) 1 Each Dis.needle, EACH MC ONCE, #100 5 Refills Prov:ELGIN WEI MD 03/02/19 Quetiapine Fumarate (SEROQUEL) 25 Mg Tablet, 25 MG PO QHS, #30 TAB 3 Refills Prov:ELGIN WEI MD 03/02/19 Insulin Glargine 100 Un/Ml Pen (LANTUS SOLOSTAR PEN) 100 Unit/1 Ml Insuln.pen, 15 UNIT SQ HS, #5 BOX 3 Refills Prov:ELGIN WEI MD 03/02/19 Warfarin Sodium (WARFARIN SODIUM) 5 Mg Tablet, 1 TAB PO QDAY, #90 TAB 3 Refills Prov:ELGIN WEI MD 02/10/19 Fenofibrate (FENOFIBRATE) 160 Mg Tablet, 160 MG PO QDAY, #90 TAB 4 Refills Prov:ELGIN WEI MD 02/06/19 Digoxin (DIGOXIN) 250 Mcg Tablet, 1 TAB PO QDAY, #90 TAB 1 Refill Prov:ELGIN WEI MD 01/03/19 Atenolol (ATENOLOL) 50 Mg Tablet, 1 TAB PO QDAY, #90 TAB 4 Refills Prov:ELGIN WEI MD 05/19/18 Lisinopril (LISINOPRIL) 10 Mg Tablet, 10 MG PO QDAY, #90 TAB 3 Refills Prov:ELGIN WEI MD 05/18/18 Reported Medications Tramadol Hcl (TRAMADOL HCL) 50 Mg Tablet, 50 MG PO TID PRN for PAIN, TAB 03/04/19 Furosemide (FUROSEMIDE) 40 Mg Tablet, 1-2 TAB PO BID, TAB 03/04/19 Aspirin/Calcium Carbonate/Mag (ASPIRIN BUFFERED 325 MG TAB) 325 Mg Tablet, 325 MG PO DAILY 07/11/15 Cholecalciferol (Vitamin D3) (VITAMIN D3) 1,000 Unit Tablet, 1000 TAB PO QDAY, #100 TAB 4 Refills 03/14/15 Omeprazole (OMEPRAZOLE) 20 Mg Tablet.dr, 1 TAB PO DAILY, #100 TAB TAKE ONE TABLET BY MOUTH TWICE A DAY 03/14/15 Metronidazole (METROGEL) 60 Gm Gel, 60 GM TOP, GEL 06/27/14 Discontinued Scripts Furosemide (FUROSEMIDE) 40 Mg Tablet, 2-3 TAB PO BID, #540 TAB 2 Refills Prov:LIZETTE AMEZCUA PHARMD 11/28/18 Tramadol Hcl (TRAMADOL HCL) 50 Mg Tablet, 1 TAB PO TID PRN for pain, #90 TAB 5 Refills Prov:ELGIN WEI MD 10/07/18 Duloxetine Hcl (CYMBALTA) 60 Mg Capsule.dr, 60 MG PO QDAY, #90 CAP 1 Refill Prov:ELGIN WEI MD 02/10/19 Dicyclomine Hcl (DICYCLOMINE HCL) 20 Mg Tablet, 1 TAB PO PRN, #90 TAB 1 Refill Prov:ELGIN WEI MD 02/10/19 Buspirone Hcl (BUSPIRONE HCL) 5 Mg Tab, 5 MG PO BID PRN for anxiety, #60 TAB 5 Refills Prov:ELGIN WEI MD 01/03/19 Fluticasone Prop 50 Mcg Ns (FLONASE 50 MCG NS) 16 Gm [place].susp, 2 SPRAYS NS QDAY, #1 BOT 3 Refills Prov:ELGIN WEI MD 12/13/18 Pramipexole Di-Hcl (MIRAPEX) 0.125 Mg Tablet, 0.125 MG PO QHS PRN for RLS, #90 TAB 2 Refills Prov:ELGIN WEI MD 10/03/18 Allergies: Coded Allergies: No Known Drug Allergies (Verified , 03/04/19) Hx Smoking: No Smoking Status: Never Smoker Exposure to Second Hand Smoke?: Yes (as a child ) Caffeine Intake: Coffee, Soda Caffeine/Cups Per Day: 1-2/day OCCASIONALLY Hx Alcohol Use: Yes Alcohol Used: Liquor Hx Substance Use Disorder: No Review of Systems All Systems Reviewed/Normal: Yes, Except as Noted Exam Vital Signs Vital Signs Date Time Temp Pulse Resp B/P (MAP) Pulse Ox O2 Delivery O2 Flow Rate FiO2 03/04/19 09:03 98.2 66 18 123/71 (88) 95 Nasal Cannula 3.0 General Appearance: Alert, Awake, No Acute Distress Neuro: No Gross deficits (Answers questions appropriately, but has some difficulty with details. Normal and symmetric UE and LE strength. No clonus. Normal sensation to light touch in LE and UE.) Cardiovascular: Regular Rate and Rhythm Respiratory: Clear to Auscultation GI: Abd Soft and Non-Tender Extremities: Edema (1+ pitting to mid grossman bilaterally), Other (R arm with diffuse echymosis in the medial upper arm. No deformity. Some pain in the prox bicep with palpation. No mobility of strength limitations.) Medical Decision Making Data Points Result Diagram: 03/04/1953803/04/19538 Item Value Date Time Mean Corpuscular Volume 85.9 fL 03/04/19538 Platelet Count 259 K/uL 03/04/19538 Neutrophils (%) (Auto) 66.6 % 03/04/19538 Lymphocytes (%) (Auto) 21.7 % 03/04/19538 Monocytes (%) (Auto) 8.3 % 03/04/19538 Eosinophils (%) (Auto) 2.0 % 03/04/19538 Basophils (%) (Auto) 1.4 % 03/04/19538 Nucleated RBC Relative Count (auto) 0.0 /100WBC 03/04/19538 INR (Fingerstick) 1.9 02/22/19 1340 Creatinine 1.70 mg/dl H 03/04/19538 Blood Urea Nitrogen 33 mg/dl H 03/04/19538 Troponin I 0.032 ng/ml 03/04/19538 Aspartate Amino Transf (AST/SGOT) 45 U/L H 4/13/19 0539 Alanine Aminotransferase (ALT/SGPT) 50 U/L 03/04/19 0539 Alkaline Phosphatase 99 U/L 03/04/19 0539 Creatinine 1.30 mg/dl H 01/23/19 1038 Creatinine 1.60 mg/dl H 02/28/19 0844 Blood Urea Nitrogen 23 mg/dl H 01/23/19 1038 Blood Urea Nitrogen 19 mg/dl 02/28/19 0844 Creatinine 1.50 mg/dl H 09/21/18 1129 Blood Urea Nitrogen 19 mg/dl 09/21/18 1129 Hemoglobin A1c 12.0 % H 02/28/19 0844 Thyroid Stimulating Hormone (TSH) 4.96 uIU/ml H 02/28/19 0844 Urine RBC <1 /HPF 03/04/19 0609 Urine WBC <1 /HPF 03/04/19 0609 Urine Glucose (UA) 150 mg/dL H 03/04/19 0609 Digoxin Level 0.9 ng/ml 03/04/19 0539 EKG / Imaging EKG Interpretation Vent. Rate : 082 BPM Atrial Rate : 082 BPM P-R Int : 000 ms QRS Dur : 122 ms QT Int : 388 ms P-R-T Axes : 000 -32 102 degrees QTc Int : 453 ms Atrial fibrillation Left axis deviation ST depression, consider subendocardial injury or digitalis effect Abnormal ECG Confirmed by KARLA NUNEZ ([id number]) on 03/04/2019 6:33:58 AM Imaging Brain MRI - 1. No acute intracranial abnormality. 2. Minimal to mild chronic small vessel ischemic change. 3. No gradient acquisition obtained as the patient was unable to tolerate a complete scan. 4. Otherwise unremarkable brain MR. Assessment and Plan Problems: (1) Altered mental status, unspecified Status: Acute Assessment & Plan: He presented with progressive agitation, pacing, insomnia, and anger that has progressed over the last couple of days. He has had visual/ auditory hallucinations and vivid dreams for the last couple of weeks. Mirapex was stopped 5 days ago. Cymbalta, Dicyclomine, and Buspar were stopped 2 days ago. Tramadol was changed from tid to prn, so has only received a couple doses in the last 2 days. He was started on 25mg of Seroquel 2 days ago. The acute issues are likely related to insomnia and withdrawal from his chronic medications. Will restart Cymbalta at 20mg (was on 60mg), restart Buspar bid (was on tid), stop Seroquel for concern of akathasia, start Lyrica for RLS symptoms. Might need to use prn benzos for the agitation and RLS, but will try to hold off because of the side effects. (2) RLS (restless legs syndrome) Status: Chronic Assessment & Plan: He was on Mirapex. See above. He had been on gabapentin in the past, but had worsening edema. Trying Lyrica, but that could cause edema, also. See above. (3) Arm pain Status: Acute Assessment & Plan: Secondary to pulling on O2 tubing a couple days ago. He felt a pop. No strength or mobility problems. Diffuse ecchymosis on the upper medial aspect. Mild pain with palpation to prox bicep. Likely, had a small muscle injury that was worsened with warfarin use. Will follow. (4) Low back pain Status: Chronic Assessment & Plan: Continue tramadol prn. Adding Lyrica. (5) Atrial fibrillation Status: Chronic Assessment & Plan: Rate controlled on digoxin. Not toxic. Continue digoxin and warfarin. Daily INR. (6) Chronic kidney disease, stage III (moderate) Onset Date: 01/15/2015 Status: Acute Assessment & Plan: Baseline is about 1.4-1.6. He is 1.7 today. Will follow. (7) Hypertension Status: Chronic Assessment & Plan: Continue chronic lisinopril with parameters. (8) Edema Status: Chronic Assessment & Plan: He has about 1+ pitting in shins at baseline. Continue [place] six with parameters and follow for worsening with Lyrica. Copies to: ELGIN WEI MD ; Venous Thromboembolism Antithrombotics Is Pt On Any Antithrombotics?: No Exam Sepsis Risk: No Definite Risk Problem Qualifiers (1) Altered mental status, unspecified: Altered mental status type: disorientation Qualified Codes: R41.0 - Disorientation, unspecified (2) Arm pain: Laterality: right Qualified Codes: M79.601 - Pain in right arm LUIZA CARDENAS MD Mar 04, 2019 11:46
[2019-03-04] MEDS: busPIRone HCL 5 MG TAB PO SCH ×2 (11:51→21:40)
[2019-03-04] MEDS: INSULIN HUM LISPRO 100 UN/ML 3 ML VIAL SUBQ PRN ×3 (11:57→21:41)
[2019-03-04] MEDS ORDERED: PREGABALIN 25 MG CAP PO ONE (12:00)
[2019-03-04] MEDS ORDERED: DULoxetine HCL 20 MG CAPCR PO ONE (12:00)
[2019-03-04] MEDS: DIGOXIN 0.25 MG TAB PO SCH (12:00)
[2019-03-04] MEDS: WARFARIN SOD 5 MG TAB PO SCH (13:31)
[2019-03-04 13:33] VITALS: BP 118/75
[2019-03-04] MEDS: traMADol 50 MG TAB PO PRN ×2 (14:11→21:39)
[2019-03-04 18:02] VITALS: BP 127/68
[2019-03-04 19:27] VITALS: BP 128/87
[2019-03-04] MEDS: PREGABALIN 50 MG CAPSULE PO SCH (21:39)
[2019-03-04] MEDS: LIDOCAINE 5% PATCH TP SCH (21:39)
[2019-03-04] MEDS: INSULIN GLARGINE 100 U/ML 3 ML PEN SUBQ SCH (21:40)
[2019-03-04] MEDS: DULoxetine HCL 20 MG CAPCR PO SCH (21:40)
[2019-03-04] MEDS: MELATONIN 3 MG TAB PO SCH (21:40)
[2019-03-04 23:07] VITALS: BP 120/78
[2019-03-05 07:20] LABS: PLATELET COUNT, AUTOMATED 242 K/uL (150-450)
[2019-03-05 07:25] LABS: INR 1.46
[2019-03-05] MEDS: busPIRone HCL 5 MG TAB PO SCH ×2 (08:43→20:55)
[2019-03-05] MEDS: PANTOPRAZOLE SOD 40 MG TABEC PO SCH (08:43)
[2019-03-05] MEDS: DIGOXIN 0.25 MG TAB PO SCH (08:43)
[2019-03-05] MEDS: FUROSEMIDE 40 MG TAB PO SCH (08:43)
[2019-03-05] MEDS: LISINOPRIL 10 MG TAB PO SCH (08:43)
[2019-03-05] MEDS: PATCH REMOVAL 1 EA TP SCH (08:48)
[2019-03-05 10:02] VITALS: Ht 182.9 cm; Wt 127.1 kg
[2019-03-05 11:43] VITALS: BP 156/66
[2019-03-05] MEDS: WARFARIN SOD 5 MG TAB PO SCH (12:10)
[2019-03-05] MEDS: INSULIN HUM LISPRO 100 UN/ML 3 ML VIAL SUBQ PRN ×3 (12:10→20:56)
--- NOTE | 2019-03-05 13:26 | Hospitalist Progress Note ---
Subjective Progress Notes Subjective He reports feeling improved this morning and sleeping "better" last night. Physical Exam Vital Signs Date Time Temp Pulse Resp B/P (MAP) Pulse Ox O2 Delivery O2 Flow Rate FiO2 03/05/19 11:43 98.2 79 16 156/66 (96) 93 Nasal Cannula 2.0 Intake and Output 03/05/19 07:00 Intake Total 1340 ml Output Total 150 ml Balance 1190 ml Intake Oral 1340 ml Output Urine Total 150 ml # Voids 9 # Bowel Movements 1 General Appearance: Alert, Awake Neuro: No Gross deficits ENT: Oropharynx Clear Cardiovascular: Other (Irregular) Respiratory: Clear to Auscultation GI: Soft and Non-Tender Extremities: Warm, Perfused, Edema (trace-1+ both LE) Psych: Other (Oriented to person, place, and partially to time.) Result Diagram: 03/05/1970703/05/19707 Assessment and Plan Problems: (1) Altered mental status, unspecified Status: Acute Assessment & Plan: He presented with progressive agitation, pacing, insomnia, and anger that has progressed over the last couple of days. He has had visual/auditory hallucinations and vivid dreams for the last couple of weeks. Mirapex was stopped 5 days ago. Cymbalta, Dicyclomine, and Buspar were stopped 2 days ago. Tramadol was changed from tid to PRN, so has only received a couple doses in the last 2 days. He was started on 25mg of Seroquel 2 days ago. The acute issues are likely related to insomnia and withdrawal from his chronic medications. We did restart Cymbalta at 20mg (was on 60mg), Buspar bid (was on tid). We stopped Seroquel for concern of akathisia. We also started Lyrica for RLS symptoms. Overall, he seems to be somewhat improved. Will continue on this "scaled back" regimen. Monitor closely. (2) RLS (restless legs syndrome) Status: Chronic Assessment & Plan: He was on Mirapex. See above. He had been on gabapentin in the past, but had worsening edema. Trying Lyrica, but that could cause side effects as well. (3) Arm pain Status: Acute Assessment & Plan: Secondary to pulling on O2 tubing a couple days ago. He felt a pop. No strength or mobility problems. Diffuse ecchymosis on the upper medial aspect. Mild pain with palpation to prox bicep. Likely, had a small muscle injury that was worsened with warfarin use. Will follow. (4) Low back pain Status: Chronic Assessment & Plan: Continue tramadol prn. Adding Lyrica. (5) Atrial fibrillation Onset Date: 07/13/2014 Status: Chronic Assessment & Plan: Rate controlled on digoxin (level 0.9). Continue digoxin and warfarin. Daily INR. (6) Chronic kidney disease, stage III (moderate) Onset Date: 01/15/2015 Status: Acute Assessment & Plan: Baseline is about 1.4-1.6. He is 1.4 today. This could contribute to his RLS as well. Will follow. (7) Hypertension Status: Chronic Assessment & Plan: Continue chronic lisinopril with parameters. (8) Edema Status: Chronic Assessment & Plan: He has about 1+ pitting in shins at baseline. Continue Lasix with parameters and follow for worsening with Lyrica. Exam Sepsis Risk: No Definite Risk Problem Qualifiers (1) Altered mental status, unspecified: Altered mental status type: disorientation Qualified Codes: R41.0 - Disorientation, unspecified (2) Arm pain: Laterality: right Qualified Codes: M79.601 - Pain in right arm AILYN DE LA CRUZ MD Mar 05, 2019 13:26
[2019-03-05 19:50] VITALS: BP 142/70
[2019-03-05] MEDS: LIDOCAINE 5% PATCH TP SCH (20:54)
[2019-03-05] MEDS: DULoxetine HCL 20 MG CAPCR PO SCH (20:55)
[2019-03-05] MEDS: INSULIN GLARGINE 100 U/ML 3 ML PEN SUBQ SCH (20:55)
[2019-03-05] MEDS: PREGABALIN 50 MG CAPSULE PO SCH (20:55)
[2019-03-05] MEDS: MELATONIN 3 MG TAB PO SCH (20:55)
[2019-03-05] MEDS: traMADol 50 MG TAB PO PRN (22:37)
[2019-03-05 23:00] VITALS: BP 131/71
[2019-03-06 03:30] VITALS: BP 170/90
[2019-03-06 06:04] LABS: INR 1.49
[2019-03-06 07:04] VITALS: BP 135/99
[2019-03-06] MEDS: INSULIN HUM LISPRO 100 UN/ML 3 ML VIAL SUBQ PRN ×4 (08:17→20:54)
[2019-03-06] MEDS: PATCH REMOVAL 1 EA TP SCH (09:00)
[2019-03-06] MEDS ORDERED: INFLUENZA VIRUS VAC 0.5ML SYR IM ONLY ONE (09:00)
[2019-03-06] MEDS: LISINOPRIL 10 MG TAB PO SCH (09:38)
[2019-03-06] MEDS: ACETAMINOPHEN 500 MG TAB PO PRN (09:38)
[2019-03-06] MEDS: PANTOPRAZOLE SOD 40 MG TABEC PO SCH (09:38)
[2019-03-06] MEDS: busPIRone HCL 5 MG TAB PO SCH ×2 (09:40→21:46)
[2019-03-06] MEDS: FUROSEMIDE 40 MG TAB PO SCH (09:40)
[2019-03-06] MEDS: DIGOXIN 0.25 MG TAB PO SCH (09:43)
[2019-03-06 11:41] VITALS: BP 161/56
[2019-03-06] MEDS ORDERED: WARFARIN SOD 2.5 MG TAB PO SCH (13:00)
[2019-03-06] MEDS ORDERED: MAGN400T10 PO (13:03)
[2019-03-06] MEDS ORDERED: GLUC100026 PO (13:03)
[2019-03-06] MEDS ORDERED: [UNRECOGNIZED DRUG - CODE] PO (13:03)
[2019-03-06] MEDS ORDERED: CALC625T57 PO (13:03)
[2019-03-06] MEDS ORDERED: MULT-27 PO (13:03)
[2019-03-06] MEDS ORDERED: CHON400C PO (13:03)
[2019-03-06] MEDS ORDERED: OMEG-5 PO (13:03)
[2019-03-06] MEDS ORDERED: FLAX100041 PO (13:03)
[2019-03-06] MEDS ORDERED: OMEP-218 PO (13:19)
[2019-03-06] MEDS ORDERED: ZINC50TA2 PO (13:19)
[2019-03-06] MEDS ORDERED: ACET500T68 PO (13:19)
[2019-03-06] MEDS ORDERED: CALC-515 PO (13:19)
[2019-03-06] MEDS ORDERED: CHOL10005 PO (13:19)
--- NOTE | 2019-03-06 13:36 | Hospitalist Progress Note ---
Subjective Progress Notes Subjective 83M admitted for encephalopathy. Slept poorly overnight but appears to be back to baseline this am. Family report concern because he is still not recalling arrival in ER and other events. Patient Complains of: Neurological: No: Confusion Gastrointestinal: No Nausea, No Vomiting Physical Exam Vital Signs Date Time Temp Pulse Resp B/P (MAP) Pulse Ox O2 Delivery O2 Flow Rate FiO2 03/06/19 11:41 98.7 57 16 161/56 (91) 93 Nasal Cannula 2.0 Intake and Output 03/06/19 06:59 Intake Total 1820 ml Balance 1820 ml Intake Oral 1820 ml # Voids 8 General Appearance: Awake, No Acute Distress, Afebrile Cardiovascular: Other (Irregularly irregular) Respiratory: No Respiratory Distress GI: Soft and Non-Tender Extremities: Soft and Non Tender, Warm, Pulses, Perfused Result Diagram: 03/05/19 0708 03/06/19 0522 Assessment and Plan Problems: (1) Altered mental status, unspecified Status: Acute Assessment & Plan: He presented with progressive agitation, pacing, insomnia, and anger that has progressed over the last couple of days. He has had visual/auditory hallucinations and vivid dreams for the last couple of weeks. Mirapex was stopped 5 days before admission Cymbalta, Dicyclomine, and Buspar were stopped 2 days . Tramadol was changed from tid to PRN, so has only receiv ed a couple doses in the last 2 days. He was started on 25mg of Seroquel 2 days ago. The acute issues are likely related to insomnia and withdrawal from his chronic medications. We did restart Cymbalta at 20mg (was on 60mg), Buspar bid (was on tid). We also started Lyrica for RLS symptoms. Overall, he seems to be somewhat improved. Will continue on this "scaled back" regimen and restart Seroquel. If no agitation likely discharge tomorrow. (2) RLS (restless legs syndrome) Status: Chronic Assessment & Plan: He was on Mirapex. See above. He had been on gabapentin in the past, but had worsening edema. Trying Lyrica, but that could cause side effects as well. (3) Arm pain Status: Acute Assessment & Plan: Secondary to pulling on O2 tubing a couple days ago. He felt a pop. No strength or mobility problems. Diffuse ecchymosis on the upper medial aspect. Mild pain with palpation to prox bicep. Likely, had a small muscle injury that was worsened with warfarin use. Will follow. (4) Low back pain Status: Chronic Assessment & Plan: Continue tramadol prn. Adding Lyrica. (5) Atrial fibrillation Onset Date: 07/13/2014 Status: Chronic Assessment & Plan: Rate controlled on digoxin (level 0.9). Continue digoxin and warfarin. Daily INR. (6) Chronic kidney disease, stage III (moderate) Onset Date: 01/15/2015 Status: Acute Assessment & Plan: Baseline is about 1.4-1.6. This could contribute to his RLS as well. Will follow. (7) Hypertension Status: Chronic Assessment & Plan: Continue chronic lisinopril with parameters. (8) Edema Status: Chronic Assessment & Plan: He has about 1+ pitting in shins at baseline. Continue Lasix with parameters and follow for worsening with Lyrica. Exam Sepsis Risk: No Definite Risk Problem Qualifiers (1) Altered mental status, unspecified: Altered mental status type: disorientation Qualified Codes: R41.0 - Disorien tation, unspecified (2) Arm pain: Laterality: right Qualified Codes: M79.601 - Pain in right arm DELBERT DALEY DO Mar 06, 2019 13:36
[2019-03-06 15:56] VITALS: BP 127/50
[2019-03-06 19:11] VITALS: BP 152/78
[2019-03-06] MEDS: INSULIN GLARGINE 100 U/ML 3 ML PEN SUBQ SCH (20:53)
[2019-03-06] MEDS ORDERED: QUEtiapine FUM 25 MG TAB PO SCH (21:00)
[2019-03-06] MEDS: DOCUSATE SODIUM 100 MG CAP PO SCH (21:45)
[2019-03-06] MEDS: PREGABALIN 50 MG CAPSULE PO SCH (21:46)
[2019-03-06] MEDS: MELATONIN 3 MG TAB PO SCH (21:46)
[2019-03-06] MEDS: PRAZOSIN HCL 1 MG CAP PO SCH (21:46)
[2019-03-06] MEDS: DULoxetine HCL 20 MG CAPCR PO SCH (21:46)
[2019-03-06] MEDS: LIDOCAINE 5% PATCH TP SCH (21:47)
[2019-03-06 22:30] VITALS: BP 164/88
[2019-03-07] MEDS: traMADol 50 MG TAB PO PRN (00:03)
[2019-03-07] MEDS: ACETAMINOPHEN 500 MG TAB PO PRN (00:50)
[2019-03-07 03:48] VITALS: BP 140/65
[2019-03-07 05:39] LABS: INR 1.42
--- NOTE | 2019-03-07 06:30 | NUR ---
Pt restless throughout night. Spasms of lower legs & torso frequently--up and down constantly. Requires 1:1 supervision as night progressed. Pt becoming more confused after dark, requires frequent reorientation to place, time, & situation. Pt unable to sleep at all tonight. Reported to .
[2019-03-07 07:05] VITALS: BP 126/67
[2019-03-07] MEDS: INSULIN HUM LISPRO 100 UN/ML 3 ML VIAL SUBQ PRN ×2 (08:11→20:44)
[2019-03-07] MEDS: PATCH REMOVAL 1 EA TP SCH (09:00)
[2019-03-07] MEDS: DOCUSATE SODIUM 100 MG CAP PO SCH ×3 (09:04→21:00)
[2019-03-07] MEDS: DIGOXIN 0.25 MG TAB PO SCH (09:04)
[2019-03-07] MEDS: LISINOPRIL 10 MG TAB PO SCH (09:05)
[2019-03-07] MEDS: POLYETHYLENE GLYCOL 17 GM PKT PO SCH (09:05)
[2019-03-07] MEDS: FUROSEMIDE 40 MG TAB PO SCH (09:05)
[2019-03-07] MEDS: busPIRone HCL 5 MG TAB PO SCH ×2 (09:05→20:48)
[2019-03-07] MEDS: PANTOPRAZOLE SOD 40 MG TABEC PO SCH (09:05)
[2019-03-07 12:02] VITALS: BP 125/110
--- NOTE | 2019-03-07 13:06 | Hospitalist Progress Note ---
Subjective Progress Notes Subjective He didn't sleep much at all last night. He is agitated this morning, but directable. He is reporting intermittent visual hallucinations. Physical Exam Vital Signs Date Time Temp Pulse Resp B/P (MAP) Pulse Ox O2 Delivery O2 Flow Rate FiO2 03/07/19 12:02 97.7 71 16 125/110 (115) 97 Nasal Cannula 2.0 Intake and Output 03/07/19 07:00 Intake Total 1460 ml Balance 1460 ml Intake Oral 1460 ml # Voids 6 General Appearance: Alert, Awake, Other (He is calm during the interview. Pleasant.) Neuro: Other (Answers questions appropriately. Follows commands. Pleasant.) Extremities: Edema (1+ pitting to mid shins) Result Diagram: 03/05/1970703/06/19521 Assessment and Plan Problems: (1) Altered mental status, unspecified Status: Acute Assessment & Plan: He presented with progressive agitation, pacing, insomnia, and anger that has progressed over the last couple of days. He has had visual/auditory hallucinations and vivid dreams for the last couple of weeks. Mirapex was stopped 5 days before admission Cymbalta, Dicyclomine, and Buspar were stopped 2 days prior to admission. Tramadol was changed from tid to PRN, so only received a couple doses in the last 2 days prior to admission. He was started on 25mg of Seroquel 2 days prior to admission. The acute issues are likely related to insomnia and withdrawal from his chronic medications. We did restart Cymbalta at 20mg (was on 60mg), Buspar bid (was on tid). We also started Lyrica for RLS symptoms. He was given a dose of Seroquel last night. He didn't sleep and is now more agitated and restless. Dr. Thomas saw the patient (see her note). She recommended no further antipsychotics or dopaminergic (i.e. Mirapex) related medications and to try opioids for the RLS symptoms. (2) RLS (restless legs syndrome) Status: Chronic Assessment & Plan: He was on Mirapex. See above. He had been on gabapentin in the past, but had worsening edema. Trying Lyrica, but that could cause edema, as well. Will double the dose to 100mg tonight. Will also try a dose of oxycodone now and possibly a dose of clonazepam tonight, if oxycodone isn't he lpful. Also, will check iron studies to see if iron deficiency is contributing. (3) Arm pain Status: Acute Assessment & Plan: Secondary to pulling on O2 tubing a couple days ago. He felt a pop. No strength or mobility problems. Diffuse ecchymosis on the upper medial aspect. Mild pain with palpation to prox bicep. Likely, had a small muscle injury that was worsened with warfarin use. Will follow. (4) Low back pain Status: Chronic Assessment & Plan: Continue tramadol prn. Adding Lyrica. (5) Atrial fibrillation Onset Date: 07/13/2014 Status: Chronic Assessment & Plan: Rate controlled on digoxin (level 0.9). Continue digoxin and warfarin. Daily INR. (6) Chronic kidney disease, stage III (moderate) Onset Date: 01/15/2015 Status: Acute Assessment & Plan: Baseline is about 1.4-1.6. This could contribute to his RLS as well. Will follow. (7) Hypertension Status: Chronic Assessment & Plan: Continue chronic lisinopril with parameters. (8) Edema Status: Chronic Assessment & Plan: He has about 1+ pitting in shins at baseline. Continue [place] with parameters and follow for worsening with Lyrica. Exam Sepsis Risk: No Definite Risk Problem Qualifiers (1) Altered mental status, unspecified: Altered mental status type: disorientation Qualified Codes: R41.0 - Disorientation, unspecified (2) Arm pain: Laterality: right Qualified Codes: M79.601 - Pain in right arm LUIZA CARDENAS MD Mar 07, 2019 13:06
[2019-03-07] MEDS: WARFARIN SOD 5 MG TAB PO SCH (13:54)
[2019-03-07] MEDS ORDERED: CODEINE SULFATE 30 MG TAB PO ONE (14:00)
[2019-03-07] MEDS ORDERED: oxyCODONE HCL 5 MG CAP PO ONE (14:10)
[2019-03-07 15:49] VITALS: BP 167/66
[2019-03-07] MEDS ORDERED: oxyCODONE HCL 5 MG CAP PO PRN (17:10)
[2019-03-07] MEDS ORDERED: ASCORBIC ACID 500 MG TAB PO ONE (17:20)
[2019-03-07] MEDS: LORazepam 2 MG/ML VIAL IVP PRN ×3 (18:43→23:06)
[2019-03-07 20:30] VITALS: BP 160/59
[2019-03-07] MEDS: INSULIN GLARGINE 100 U/ML 3 ML PEN SUBQ SCH (20:43)
[2019-03-07] MEDS: MELATONIN 3 MG TAB PO SCH ×2 (20:48→21:00)
[2019-03-07] MEDS: LIDOCAINE 5% PATCH TP SCH (20:49)
[2019-03-07] MEDS: DULoxetine HCL 20 MG CAPCR PO SCH (20:49)
[2019-03-07] MEDS: PRAZOSIN HCL 1 MG CAP PO SCH (20:49)
[2019-03-07] MEDS ORDERED: clonazePAM 1 MG TAB PO ONE (21:00)
[2019-03-07] MEDS ORDERED: PREGABALIN 50 MG CAPSULE PO SCH (21:00)
[2019-03-08] MEDS ORDERED: diphenhydrAMINE 50 MG/ML VIAL IVP ONE
[2019-03-08 01:20] VITALS: BP 130/61
[2019-03-08] MEDS: LORazepam 2 MG/ML VIAL IVP PRN ×8 (01:21→22:56)
[2019-03-08 03:15] VITALS: BP 124/62
[2019-03-08 05:40] LABS: INR 1.36
[2019-03-08 08:05] VITALS: BP 146/78
[2019-03-08] MEDS: POLYETHYLENE GLYCOL 17 GM PKT PO SCH (08:51)
[2019-03-08] MEDS: busPIRone HCL 5 MG TAB PO SCH (08:51)
[2019-03-08] MEDS: PANTOPRAZOLE SOD 40 MG TABEC PO SCH (08:52)
[2019-03-08] MEDS: LISINOPRIL 10 MG TAB PO SCH (08:52)
[2019-03-08] MEDS: DOCUSATE SODIUM 100 MG CAP PO SCH ×2 (08:52→20:51)
[2019-03-08] MEDS: FUROSEMIDE 40 MG TAB PO SCH (08:52)
[2019-03-08] MEDS: DIGOXIN 0.25 MG TAB PO SCH (08:54)
[2019-03-08] MEDS: PATCH REMOVAL 1 EA TP SCH (08:57)
--- NOTE | 2019-03-08 09:00 | NUR ---
Patient spit out some medication but it cant be verified as to which ones they were
[2019-03-08] MEDS: ENOXAPARIN 100 MG/ML SYR SC SCH ×2 (10:09→20:50)
[2019-03-08] MEDS: ENOXAPARIN 30 MG/0.3 ML SYR SC SCH ×2 (10:09→20:50)
[2019-03-08 10:44] LABS: PLATELET COUNT, AUTOMATED 246 K/uL (150-450)
--- NOTE | 2019-03-08 11:03 | Hospitalist Progress Note ---
Subjective Progress Notes Subjective He is agitated/restless this AM. Physical Exam Vital Signs Date Time Temp Pulse Resp B/P (MAP) Pulse Ox O2 Delivery O2 Flow Rate FiO2 03/08/19 08:54 66 03/08/19 08:15 90 Nasal Cannula 3.0 03/08/19 08:05 96.7 18 146/78 (100) Intake and Output 03/08/19 07:00 Intake Total 463 ml Output Total 550 ml Balance -87 ml Intake Oral 463 ml Output Urine Total 550 ml # Voids 9 General Appearance: Other (Rather somnolent, but does get motor agitated and tries to get out of bed very frequently) Neuro: Other (He does move all four extremities) Eyes: Other (he does not open eyes to command/resists opening) ENT: Other (face appears symmetric) Cardiovascular: Other (Irregular) Respiratory: Other (essentialy clear) Chest: No Tenderness GI: Soft and Non-Tender Extremities: Warm, Perfused Integumentary: Other (chronic venous stasis changes with some mild dermatitis in both LE - unchanged) Result Diagram: 03/05/19 0708 03/06/19 0522 Assessment and Plan Problems: (1) Altered mental status, unspecified Status: Acute Assessment & Plan: He presented with progressive agitation, pacing, insomnia, and anger that has progressed over the last couple of days. He has had visual/auditory hallucinations and vivid dreams for the last couple of weeks. Mirapex was stopped 5 days before admission Cymbalta, Dicyclomine, and Buspar were stopped 2 days prior to admission. Tramadol was changed from tid to PRN, so only received a couple doses in the last 2 days prior to admission. He was started on 25mg of Seroquel 2 days prior to admission. The acute issues are likely related to insomnia and possibly withdrawal from his chronic medications. We did restart Cymbalta at 20mg (was on 60mg), Buspar bid (was on tid). We also started Lyrica for RLS symptoms. He was given a dose of Seroquel x2 nights. Dr. Thomas did see the patient. She recommended no further antipsychotics or dopaminergic (i.e. Mirapex) related medications and to try opioids for the RLS symptoms. He also received a few doses of lorazepam through the night. He is significantly agitated/restless this AM. Will discuss further with Psychiatry, but would like to minimize his medications at this time and "detox" Mr. Pfeiffer. Will plan on stopping all neuroactive medications. Will use low dose lorazepam for "withdrawal" symptoms/agitation for next few days. Recheck labs. Watch closely. (2) RLS (restless legs syndrome) Status: Chronic Assessment & Plan: He was on Mirapex. See above. He had been on gabapentin in the past, but had worsening edema. Tried Lyrica, oxycodone, and clonazepam, but may have exacerbated mental status problems. Iron studies are unremarkable. (3) Arm pain Status: Acute Assessment & Plan: Secondary to pulling on O2 tubing a couple days ago. No strength or mobility problems. Diffuse ecchymosis on the upper medial aspect. Likely, had a small muscle injury that was worsened with warfarin use. Will follow. (4) Low back pain Status: Chronic Assessment & Plan: Monitor. Will be stopping all centrally acting medications. (5) Atrial fibrillation Onset Date: 07/13/2014 Status: Chronic Assessment & Plan: Rate controlled on digoxin (level 0.9). Will continue digoxin. Will stop the warfarin for now as he is subtherapeutic on INR and questionable if he has been taking/swallowing his oral medications due to diminished mental status. He will be started on SQ Lovenox. (6) Chronic kidney disease, stage III (moderate) Onset Date: 01/15/2015 Status: Acute Assessment & Plan: Baseline is about 1.4-1.6. This could contribute to his RLS as well. Will follow. (7) Hypertension Status: Chronic Assessment & Plan: Continue chronic lisinopril with parameters. (8) Edema Status: Chronic Assessment & Plan: He has mild edema in shins at baseline. Monitor. Exam Sepsis Risk: No Definite Risk Problem Qualifiers (1) Altered mental status, unspecified: Altered mental status type: disorientation Qualified Codes: R41.0 - Disorientation, unspecified (2) Arm pain: Laterality: right Qualified Codes: M79.601 - Pain in right arm AILYN DE LA CRUZ MD Mar 08, 2019 11:03
--- NOTE | 2019-03-08 11:11 | NUR ---
Will use 1030 lab draw for 1130 BS
[2019-03-08] MEDS: INSULIN HUM LISPRO 100 UN/ML 3 ML VIAL SUBQ PRN ×2 (11:24→17:05)
[2019-03-08] MEDS ORDERED: WARFARIN SOD 5 MG TAB PO SCH (13:00)
[2019-03-08 15:35] VITALS: BP 105/78
--- NOTE | 2019-03-08 15:38 | Psychiatric Consult ---
History of Present Illness Requesting Physician Dr. Brenden Jain Reason for Consult: Psychiatric Illness [facility] - Subjective Progress Notes Subjective I met with the patient and his family this afternoon. Mr. Pfeiffer is highly agitated and not able to answer questions or give a history. His three adult so ns are here to help control him since he keeps trying to get out of bed and is a fall risk. I learned from Mr. Pfeiffer's that he began having problems about six months ago. He began to be more forgetful and having trouble doing things that he normally does without difficulty including working on the computer and complaining that he thought he was losing his mental abilities. Two months ago, he stopped reading the newspaper. He has had no major medication changes, illnesses or injuries during this time except that ropinerole was started for restless legs about six months ago. Two weeks ago, approximately, Mr. Pfeiffer began hearing and seeing things. He thought doctors were coming into the house and telling him they were going to do surgeries on him. He started accusing his family of hiding this information from him. The family was understandably concerned. He saw Dr. Moreira, his primary care physician, who stopped the ropinerol. Two days later, he stopped buspar, duloxetine, dicyclomine, fluticasone, and added Seroquel 25 mgs. Mrs. Pfeiffer tells me that her had a terrible night but they tried another dose of Seroquel when he continued agitated the next night. This night was even worse, so they brought him to the hospital where he was seen in the emergency room and admitted. Brain imaging did not reveal any acute changes. Mr. Pfeiffer has been managed by the hospitalists since his admission and more medications (Lyrica, prazosin) have been stopped in an effort to remove any offending agents. He is now only taking 1. Insulin for blood sugars 2. Lovenox for anticoagulation 3. Protonix for reflux 4. Miralax and docusate for constipation 5. Melatonin 3 mgs at night for sleep 6. Lisinopril for blood pressure 7. Digoxin for arrhythmias 8. Ativan 0.5 ti 1 mg as needed for agitation. Last night, Mr. Pfeiffer got a PRN dose of Ativan and slept from about midnight until around 7 am. The family is unaware of any recent physical trauma. His only prior head trauma was when he played football as a young man. He has never had a seizure. Past Psychiatric History Mr Pfeiffer has never had any psychiatric or emotional illnesses or treatment. Past Medical History Mr. Pfeiffer is on chronic anticoagulation therapy for chronic atrial fibrillation as well as stage III renal failure, diabetes and restless legs syndrome. 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 He is and has four children, three of whom are here today. Other data Blood sugars have been in the 100's. Review of labs notes only RBCs and bacteria in the urine. ALT slightly elevated at 58. Suicidal Ideation: None Homicidal Ideation: None S - Objective Mental Status Exam General Appearance: Psychomotor Agitation, Other (Mr. Pfeiffer is struggling to get out of bed. He is wearing a Depends. ) Speech: Garbled Mood: Other (he is unable to describe his mood) Affect: Agitated Thought Process: No Organized, No Logical Thought Content: Visual Hallucinations, Other (Mr. Pfeiffer is responding to visual hallucinations.) Sensorium: Other (globally disoriented) Cognition: No Alert & Oriented-Person, No Alert & Oriented-Place, No Alert & Oriented-Time, No Hcikr-Gsngzfkl-Cwdxzwdhl Memory: No Immediate, No Recent, No Remote Intelligence: Above Average Insight Judgment: No Intact; Poor Result Diagram: 03/08/19 1023 03/08/19 1023 Additional Findings/Notes: Mr. Pfeiffer weighs 280 pounds and is 72" tall giving him a BMI of 38. Vital Signs 03/08/19 03/08/19 19:21 20:30 Temp 98.9 Pulse 84 Resp 20 B/P (MAP) 156/89 (111) Pulse Ox 90 O2 Delivery Nasal Cannula O2 Flow Rate 3.0 Mr. Pfeiffer is moving all four extremities. He is tremulous and has some involuntary jerking movements of his legs. S Assessment and Plan [id number] Encounter Date: Mar 08, 2019 [id number] Encounter Time: 14:15 Problems: (1) Dementia Assessment & Plan: This patient's dementia has been rapidly progressive. He only began noticing trouble doing his normal activities including work on the computer about six months ago. Two months ago he stopped reading the newspaper. Two weeks ago he began experiencing prominent delusions and hallucinations--especially visual hallucinations including seeing people in the house. These changes were not accompanied by any medication changes, changes in overall health, or any physical trauma. This type of presentation suggests the possibility of Lewy Body dementia which is typically associated with psychotic symptoms which are generally not responsive to antipsychotic medications. Consideration should be given to starting a cholinesterase inhibitor like do nepezil, rivastigmine or galantamine once his delirium has resolved. (2) Delirium Status: Acute Assessment & Plan: It appears that Mr. Pfeiffer is acutely delirious from combined causes in addition to suffering from an underlying dementia. I agree with the plan to stop all medications which can possibly be eliminated and trying to use Ativan as needed for management of his extreme agitation. He did sleep last night from about midnight to 7:30 this morning after getting Ativan. This is being used judiciously at night. I agree that avoiding other neuroleptics such as Haldol sometimes used for delirious agitated patients should be avoided in this case. Condition Mr. Pfeiffer appears to be suffering from an acute confusional state superimposed on a rapidly progressive dementia. Recommendation Details I agree with the current treatment plan--not restarting any psychotropic medications--and using lorazepam at the minimal effective dose to control the agitation. Once the delirium is resolved, consideration should be given to a trial of a cholinesterase inhibitor which might improve cognition slightly. I would not try a neuroleptic again. It appears that Seroquel even at a very low dose of 25 mgs made things much worse. I will follow with you. Problem Qualifiers (1) Dementia: Dementia type: unspecified type NAHOMY BERGER DO Mar 08, 2019 15:38
[2019-03-08 19:21] VITALS: BP 156/89
[2019-03-08] MEDS: MELATONIN 3 MG TAB PO SCH (20:49)
[2019-03-09] MEDS: LORazepam 2 MG/ML VIAL IVP PRN ×2 (01:09→04:51)
[2019-03-09 06:05] LABS: PLATELET COUNT, AUTOMATED 315 K/uL (150-450)
[2019-03-09 06:23] VITALS: BP 162/75
[2019-03-09 06:32] LABS: INR 1.36
[2019-03-09] MEDS: ENOXAPARIN 30 MG/0.3 ML SYR SC SCH ×2 (08:59→20:59)
[2019-03-09] MEDS: PANTOPRAZOLE SOD 40 MG TABEC PO SCH (08:59)
[2019-03-09] MEDS: LISINOPRIL 10 MG TAB PO SCH (08:59)
[2019-03-09] MEDS: ENOXAPARIN 100 MG/ML SYR SC SCH ×2 (08:59→21:00)
[2019-03-09] MEDS: DOCUSATE SODIUM 100 MG CAP PO SCH (09:00)
[2019-03-09] MEDS: PATCH REMOVAL 1 EA TP SCH (09:00)
[2019-03-09] MEDS: POLYETHYLENE GLYCOL 17 GM PKT PO SCH (09:00)
[2019-03-09] MEDS: DIGOXIN 0.25 MG TAB PO SCH (09:01)
--- NOTE | 2019-03-09 10:50 | NUR ---
Occupational Therapy Impression Max Ax2 sit<>stand for safety and cueing. Mod Ax2 ambulation x150ft with RW. Pt requiring v/c's to stay alert and assist to due decreased balance and weakness. Sons present and assisting with dressing/toileting (about Max Ax1-2 for ADLs). Pending progression, pt may benefit from further rehab prior to discharge home. Occupational Therapy Goals 1) Pt will be Min A UB/LB dressing. 2) Pt will be Min A toilet task. 3) Pt will be Min A grooming/hygiene, seated. Patient's Goal
--- NOTE | 2019-03-09 11:07 | Hospitalist Progress Note ---
Subjective Progress Notes Subjective This patient was admitted for altered mental status. He had increased agitation yesterday. Patient Complains of: Cardiovascular: No: Chest Pain Respiratory: No: Shortness of Breath Physical Exam Vital Signs Date Time Temp Pulse Resp B/P (MAP) Pulse Ox O2 Delivery O2 Flow Rate FiO2 03/09/19 09:01 73 03/09/19 06:23 98.5 18 162/75 (104) 90 Room Air 03/08/19 20:30 3.0 Intake and Output 03/09/19 07:00 Intake Total 800 ml Balance 800 ml Intake Oral 800 ml # Voids 10 # Bowel Movements 4 Cardiovascular: Regular Rate and Rhythm Respiratory: Clear to Auscultation Result Diagram: 03/09/19 0549 03/09/19 0549 Assessment and Plan Problems: (1) Altered mental status, unspecified Status: Acute Assessment & Plan: He presented with progressive agitation, pacing, insomnia, and anger that has progressed over the last couple of days. He has had visual/auditory hallucinations and vivid dreams for the last couple of weeks. M irapex was stopped 5 days before admission Cymbalta, Dicyclomine, and Buspar were stopped 2 days prior to admission. Tramadol was changed from tid to PRN, so only received a couple doses in the last 2 days prior to admission. He was started on 25mg of Seroquel 2 days prior to admission. The acute issues are likely related to insomnia and possibly withdrawal from his chronic medications. We did restart Cymbalta at 20mg (was on 60mg), Buspar bid (was on tid). We also started Lyrica for RLS symptoms. He was given a dose of Seroquel x2 nights. Dr. Thomas did see the patient. She recommended no further antipsychotics or dopaminergic (i.e. Mirapex) related medications and to try opioids for the RLS symptoms. He also received a few doses of lorazepam through the night. He is significantly agitated/restless this AM. Will discuss further with Psychiatry, but would like to minimize his medications at this time and "detox" Mr. Pfeiffer. Will plan on stopping all neuroactive medications. He received a dose of lorazepam yesterday afternoon. He is disoriented and unsteady today. (2) RLS (restless legs syndrome) Status: Chronic Assessment & Plan: He was on Mirapex, which has been discontinued. (3) Arm pain Status: Acute Assessment & Plan: Diffuse ecchymosis on the upper medial aspect. Likely, had a small muscle injury that was worsened with warfarin use. (4) Low back pain Status: Chronic Assessment & Plan: Monitor. Will be stopping all centrally acting medications. (5) Atrial fibrillation Onset Date: 07/13/2014 Status: Chronic Assessment & Plan: He has been digoxin and warfarin. His warfarin was not therapeutic and he was placed on full dose Lovenox at admission. Full anticoagulation may be more risk than benefit if his ambulation and mental status do not improved. (6) Chronic kidney disease, stage III (moderate) Onset Date: 01/15/2015 Status: Acute Assessment & Plan: Baseline is about 1.4-1.6. This could contribute to his RLS as well. Will follow. (7) Hypertension Status: Chronic Assessment & Plan: Continue chronic lisinopril with parameters. (8) Edema Status: Chronic Assessment & Plan: He has mild edema in shins at baseline. Monitor. Exam Sepsis Risk: No Definite Risk Problem Qualifiers (1) Altered mental status, unspecified: Altered mental status type: disorientation Qualified Codes: R41.0 - Disorientation, unspecified (2) Arm pain: Laterality: right Qualified Codes: M79.601 - Pain in right arm CHIQUI BROWN DO Mar 09, 2019 11:07
[2019-03-09] MEDS: ACETAMINOPHEN 500 MG TAB PO PRN (14:34)
[2019-03-09 14:35] VITALS: BP 150/59
--- NOTE | 2019-03-09 14:35 | [facility] Progress Note ---
[facility] - Subjective Progress Notes Subjective I stopped in to see Mr. Pfeiffer this morning at around 8:15 and then again this afternoon around 2 p.m. Yesterday, he had six doses of Ativan. The family is concerned because after he got the Ativan, he would not open his eyes and could not walk. Dr. Yañez stopped Ativan this morning. This afternoon, the family has been helping him walk with his walker. He is in the bathroom this afternoon and not coming out. The family says he often spends a lot of time--sometimes even sleeping--on the toilet at home. He has trouble urinating. We talked about options and I said that if we cannot use benzodiazepines or antipsychotics, we do not have any other very good choices considering our goal to clear his delirium. The family is concerned that he might become combative since he now wants to go home and is more awake. We agreed to keep trying to get him up and moving in the halls with frequent re-direction and reassurance. Suicidal Ideation: None Homicidal Ideation: None [facility] - Objective Physical Exam Vital Signs Vital Signs 03/09/19 03/09/19 03/09/19 06:23 09:01 11:09 Temp 98.5 Pulse 73 Resp 18 B/P (MAP) 162/75 (104) Pulse Ox 92 O2 Delivery Nasal Cannula O2 Flow Rate 3.0 Mental Status Exam General Appearance: Psychomotor Agitation, Other (Mr. Pfeiffer is struggling to get out of bed. He is wearing a Depends. ) Affect: Agitated Thought Process: No Organized, No Logical Thought Content: Other (Mr. Pfeiffer is responding to visual hallucinations.) Intelligence: Above Average Insight Judgment: No Intact; Poor Result Diagram: 03/09/19 0549 03/09/19 0549 [facility] Assessment and Plan Pegr-hh-Nkmy Encounter Date: Mar 09, 2019 Ixso-fy-Vldw Encounter Time: 14:00 Problems: (1) Dementia Status: Chronic Assessment & Plan: This patient's dementia has been rapidly progressive. He only began noticing trouble doing his normal activities including work on the computer about six months ago. Two months ago he stopped reading the newspaper. Two weeks ago he began experiencing prominent delusions and hallucinations--especially visual hallucinations including seeing people in the house. These changes were not accompanied by any medication changes, changes in overall health, or any physical trauma. This type of presentation suggests the possibility of Lewy Body dementia which is typically associated with psychotic symptoms which are generally not responsive to antipsychotic medications. Consideration should be given to starting a cholinesterase inhibitor like donepezil, rivastigmine or galantamine once his delirium has resolved. (2) Delirium Status: Acute Assessment & Plan: Seems to be resolving. Problem Qualifiers (1) Dementia: Dementia type: unspecified type NAHOMY BERGER DO Mar 09, 2019 14:35
[2019-03-09] MEDS: INSULIN HUM LISPRO 100 UN/ML 3 ML VIAL SUBQ PRN (16:46)
[2019-03-09] MEDS: MELATONIN 3 MG TAB PO SCH (20:59)
[2019-03-10 04:02] VITALS: BP 147/72
[2019-03-10 05:53] LABS: INR 1.23
[2019-03-10] MEDS ORDERED: DOCUSATE SODIUM 100 MG CAP PO PRN (07:55)
[2019-03-10] MEDS ORDERED: POLYETHYLENE GLYCOL 17 GM PKT PO PRN (07:55)
[2019-03-10] MEDS ORDERED: NS(*) 0.9% 1000 ML BAG 1,000 ML IV ONE ×2 (08:10→09:00)
[2019-03-10] MEDS: ACETAMINOPHEN 500 MG TAB PO PRN ×2 (08:14→18:31)
[2019-03-10 08:41] VITALS: BP 140/94
[2019-03-10] MEDS: LISINOPRIL 10 MG TAB PO SCH (08:45)
[2019-03-10] MEDS: PANTOPRAZOLE SOD 40 MG TABEC PO SCH (08:45)
[2019-03-10] MEDS: DIGOXIN 0.25 MG TAB PO SCH (08:46)
[2019-03-10] MEDS: PATCH REMOVAL 1 EA TP SCH (09:00)
[2019-03-10] MEDS ORDERED: ENOXAPARIN 100 MG/ML SYR SC SCH (09:00)
[2019-03-10] MEDS ORDERED: ENOXAPARIN 30 MG/0.3 ML SYR SC SCH (09:00)
[2019-03-10] MEDS ORDERED: ENOXAPARIN 30 MG/0.3 ML SYR SC ONE (09:45)
--- NOTE | 2019-03-10 09:49 | NUR ---
Occupational Therapy Impression Pt more alert, agreeable to engage in functional mobility. Declined need for toileting. CGA handheld assist ambulation x150ft, improved steadiness and alertness this date. Independent bed mobility in/out. SpO2 WNL on 3L. Family reports significant improvement compared to yesterday. Rec pending progress. Occupational Therapy Goals 1) Pt will be Min A UB/LB dressing. 2) Pt will be Min A toilet task. 3) Pt will be Min A grooming/hygiene, seated. Patient's Goal
--- NOTE | 2019-03-10 11:48 | NUR ---
Physical Therapy Impression Pt with significantly improved tolerance to activity and alertness. Pt requires SBA for bed mobility, CGA to stand, and CGA to ambulate 150' with hand-hold assist x2. Recommend Pt DC home with home health. Physical Therapy Goals 1: Pt to cmplete bed mobility with Neto 2: Pt to complete transfers with Neto x1 with RW 3: Pt to ambulate 100' with CGA x1 and RW 4: Pt to asc/desc 4 stairs with CGA Patient's Goals
--- NOTE | 2019-03-10 12:59 | Hospitalist Progress Note ---
Subjective Progress Notes Subjective 83M admitted for AMS. ALISIA overnight, tolerating off medications well. Appears to be approaching baseline. Patient Complains of: Gastrointestinal: No Nausea, No Vomiting Physical Exam Vital Signs Date Time Temp Pulse Resp B/P (MAP) Pulse Ox O2 Delivery O2 Flow Rate FiO2 03/10/19 08:46 70 03/10/19 08:41 98.5 18 140/94 (109) 96 Nasal Cannula 3.0 Intake and Output 03/10/19 07:00 Intake Total 0 ml Balance 0 ml Intake Oral 0 ml # Voids 12 # Bowel Movements 5 General Appearance: Awake, No Acute Distress Neuro: No Gross deficits ENT: Normal Cardiovascular: Other (irregularly irregular) Respiratory: No Respiratory Distress GI: Soft and Non-Tender Extremities: Soft and Non Tender, Warm, Pulses, Perfused Result Diagram: 03/09/19 0549 03/10/19 0529 Assessment and Plan Problems: (1) Altered mental status, unspecified Status: Acute Assessment & Plan: He presented with progressive agitation, pacing, insomnia, and anger that has progressed over the last couple of days. He has had visual/auditory hallucinations and vivid dreams for the last couple of weeks. Mirapex was stopped 5 days before admission Cymbalta, Dicyclomine, and Buspar w ere stopped 2 days prior to admission. Tramadol was changed from tid to PRN, so only received a couple doses in the last 2 days prior to admission. He was started on 25mg of Seroquel 2 days prior to admission. The acute issues are likely related to insomnia and possibly withdrawal from his chronic medications. We did restart Cymbalta at 20mg (was on 60mg), Buspar bid (was on tid). We also started Lyrica for RLS symptoms. He was given a dose of Seroquel x2 nights. Dr. Thomas did see the patient. She recommended no further antipsychotics or dopaminergic (i.e. Mirapex) related medications and to try opioids for the RLS symptoms. Doing better this am, appears to be mentating well. All centrally acting meds stopped, trial donepezil at some point. Symptoms compatible with possible Lewy-Body dementia. (2) RLS (restless legs syndrome) Status: Chronic Assessment & Plan: He was on Mirapex, which has been discontinued. (3) Arm pain Status: Acute Assessment & Plan: Diffuse ecchymosis on the upper medial aspect. Likely, had a small muscle injury that was worsened with warfarin use. (4) Low back pain Status: Chronic Assessment & Plan: Monitor. Will be stopping all centrally acting medications, continue Tylenol and topical therapy.. (5) Atrial fibrillation Onset Date: 07/13/2014 Status: Chronic Assessment & Plan: He has been digoxin and warfarin. His warfarin was not therapeutic and he was placed on therapeutic Lovenox, given age and borderline renal function this is dosed once daily. Full anticoagulation may be more risk than benefit if his ambulation and mental status do not improved. (6) Chronic kidney disease, stage III (moderate) Onset Date: 01/15/2015 Status: Acute Assessment & Plan: Baseline is about 1.4-1.6. This could contribute to his RLS as well. Will follow. (7) Hypertension Status: Chronic Assessment & Plan: Continue chronic lisinopril with parameters. (8) Edema Status: Chronic Assessment & Plan: He has mild edema in shins at baseline. Monitor. Exam Sepsis Risk: No Definite Risk Problem Qualifiers (1) Altered mental status, unspecified: Altered mental status type: disorientation Qualified Codes: R41.0 - Disorientation, unspecified (2) Arm pain: Laterality: right Qualified Codes: M79.601 - Pain in right arm DELBERT DALEY DO Mar 10, 2019 12:59
[2019-03-10 15:23] VITALS: BP 125/109
[2019-03-10 20:05] VITALS: BP 134/61
[2019-03-10] MEDS: MELATONIN 3 MG TAB PO SCH (20:40)
[2019-03-10] MEDS: TAMSULOSIN HCL 0.4 MG CAP PO SCH (20:41)
[2019-03-10] MEDS: INSULIN HUM LISPRO 100 UN/ML 3 ML VIAL SUBQ PRN (20:42)
[2019-03-11] MEDS: ACETAMINOPHEN 500 MG TAB PO PRN ×4 (00:44→21:35)
[2019-03-11 01:11] VITALS: BP 144/56
[2019-03-11 05:53] LABS: INR 1.08
[2019-03-11] MEDS: PATCH REMOVAL 1 EA TP SCH (09:00)
[2019-03-11] MEDS ORDERED: ENOXAPARIN 30 MG/0.3 ML SYR SC SCH (09:00)
[2019-03-11] MEDS ORDERED: ENOXAPARIN 100 MG/ML SYR SC SCH ×2 (09:01→09:10)
[2019-03-11] MEDS: DIGOXIN 0.25 MG TAB PO SCH (09:28)
[2019-03-11] MEDS: PANTOPRAZOLE SOD 40 MG TABEC PO SCH (09:28)
[2019-03-11] MEDS: LISINOPRIL 10 MG TAB PO SCH (09:28)
[2019-03-11] MEDS: DONEPEZIL HCL 5 MG TAB PO SCH (09:28)
[2019-03-11] MEDS: ENOXAPARIN SC SCH (09:29)
[2019-03-11 09:40] VITALS: BP 134/87
--- NOTE | 2019-03-11 10:55 | Hospitalist Progress Note ---
Subjective Progress Notes Subjective The patient is better per family. He still is not sleeping well however. He did sleep 4 hours last evening. Physical Exam Vital Signs Date Time Temp Pulse Resp B/P (MAP) Pulse Ox O2 Delivery O2 Flow Rate FiO2 03/11/19 09:40 98.4 68 16 134/87 (103) 92 Nasal Cannula 3.0 Intake and Output 03/11/19 07:00 Intake Total 2960 ml Output Total 3925 ml Balance -965 ml Intake Oral 2460 ml IV Total 500 ml Output Urine Total 3925 ml Bladder Scan Volume Amount >999 # Voids 5 # Bowel Movements 1 General Appearance: Alert, Awake, No Acute Distress, Afebrile Eyes: PERRLA Cardiovascular: Other (Irregularly irregular.) Respiratory: Clear to Auscultation GI: Soft and Non-Tender Extremities: Warm, Perfused, Edema Integumentary: Other (Bandaged wound inner distal right leg bandaged with some dried drainage noted.) Psych: Appropriate Mood & Affect Result Diagram: 03/09/19 0549 03/11/19 0525 Assessment and Plan Problems: (1) Altered mental status, unspecified Status: Acute Assessment & Plan: He presented with progressive agitation, pacing, insomnia, and anger that had progressed over 2 days prior to admission. He also had visual/auditory hallucinations and vivid dreams for several weeks prior to admission. Mirapex was stopped 5 days before admission Cymbalta, Dicyclomine, and Buspar were stopped 2 days prior to admission. Tramadol was changed from tid to PRN, so only received a couple doses in the 2 days prior to admission. He was started on 25mg of Seroquel 2 days prior to admission. The acute issues were initially thought to be related to insomnia and possibly withdrawal from his chronic medications. We did restart Cymbalta at 20mg (was on 60mg), Buspar bid (was on tid). We also started Lyrica for RLS symptoms. He was given a dose of Seroquel x2 nights. Dr. Thomas did see the patient. She recommended no further antipsychotics or dopaminergic (i.e. Mirapex) related medications and to try opioids for the RLS symptoms. He did not improve, so all centrally acting medications were once again stopped. He did improve the morning after all centrally acting meds were stopped. He appeared to be mentating well. Dr. Martin evaluated the patient. She recommended that he see a neurologist at some point, but felt that a trial of donepezil might be warranted. Although he has features that would be consistent with Lewy-body dementia, many of these could be due to his previous medications such as Mirapex per Dr. Martin. The patient continues to have pain and due to CKD, can't take NSAIDs. She recommended using Tramadol only when Tylenol does not work for pain. (2) RLS (restless legs syndrome) Status: Chronic Assessment & Plan: He was on Mirapex, which has been discontinued. (3) Arm pain Status: Acute Assessment & Plan: Diffuse ecchymosis on the upper medial aspect. Likely, had a small muscle injury that was worsened with warfarin use. (4) Low back pain Status: Chronic Assessment & Plan: Monitor. Will be stopping all centrally acting medications, continue Tylenol and topical therapy. Tramadol ordered to only be used for se josé miguel pain prn. (5) Atrial fibrillation Onset Date: 07/13/2014 Status: Chronic Assessment & Plan: He has been digoxin and warfarin. His warfarin was not therapeutic and he was placed on therapeutic Lovenox, given age and borderline renal function this is dosed once daily. Full anticoagulation may be more risk than benefit if his ambulation and mental status do not improved. (6) Chronic kidney disease, stage III (moderate) Onset Date: 01/15/2015 Status: Acute Assessment & Plan: Baseline is about 1.4-1.6. This could contribute to his RLS as well. Will follow. (7) Hypertension Status: Chronic Assessment & Plan: Continue chronic lisinopril with parameters. (8) Edema Status: Chronic Assessment & Plan: He has mild edema in shins at baseline. This worsened overnight as he sat up with his feet down for many hours. Monitor. Time Spent on Plan of Care: < 30 min Exam Sepsis Risk: No Definite Risk Problem Qualifiers (1) Altered mental status, unspecified: Altered mental status type: disorientation Qualified Codes: R41.0 - Disorientation, unspecified (2) Arm pain: Laterality: right Qualified Codes: M79.601 - Pain in right arm KARLA DE LA CRUZ MD Mar 11, 2019 10:54
--- NOTE | 2019-03-11 12:50 | NUR ---
Physical Therapy Impression Pt ambulated 200' with RW, 3L O2 and CGA. Pt and family report pt has not needed walker nor belt this morning, but pt elected to use RW as he was going to walk further. Pt states he is comfortable with stairs at his home, PT to go over these with him later today after lunch. Physical Therapy Goals 1: Pt to cmplete bed mobility with Neto 2: Pt to complete transfers with Neto x1 with RW 3: Pt to ambulate 100' with CGA x1 and RW 4: Pt to asc/desc 4 stairs with CGA Patient's Goals
--- NOTE | 2019-03-11 15:21 | NUR ---
Physical Therapy Impression Pt reports feeling better than when he arrived to the hospital and demonstrates increased tolerance to functional mobility. Pt successfully ascended/descended 2x4 stairs, using handrails as per home set up, with SBA, step over step technique and no safety concerns. Pt expresses confidence with these in dept as well as confidence in performing stairs at home. Pt has meet PT goals. Physical Therapy Goals 1: Pt to cmplete bed mobility with Neto 2: Pt to complete transfers with Neto x1 with RW 3: Pt to ambulate 100' with CGA x1 and RW 4: Pt to asc/desc 4 stairs with CGA Patient's Goals
[2019-03-11 15:28] VITALS: BP 142/77
--- NOTE | 2019-03-11 18:33 | [facility] Progress Note ---
[facility] - Subjective Progress Notes Subjective Mr. Pfeiffer is much, much better. His delirium appears to have resolved. He is alert, oriented and now enjoying visiting with his family. He was fully cooperative today and after talking with him, the family, and Dr. Damon, I administered the MOCA exam this afternoon to try to gauge his baseline cognitive ability. Mr. Pfeiffer is aware of some memory loss. This concerns him. He finds it difficult to learn new information and to access recently learned information. We completed the MOCA. He had difficulty in three areas--recall of the five words after five minutes--could not recall any of them--the date (he was off by about five days but otherwise orientation was intact) and generating words starting with the letter "F". He could only think of ten in one minute. The threshold is eleven. His overall score was 23, the threshold for concern for his level of education is 26 and above. Suicidal Ideation: None Homicidal Ideation: None [facility] - Objective Physical Exam Vital Signs Vital Signs 03/11/19 15:28 Temp 98.3 Pulse 75 Resp 20 B/P (MAP) 142/77 (98) Pulse Ox 92 O2 Delivery Nasal Cannula O2 Flow Rate 3.0 Muscle Strength and Tone: WNL Gait and Station: Other (Much better. Able to ambulate with a walker now.) [facility] Medications Reviewed: Side Effects, Benefits of Medication, Risks Mental Status Exam General Appearance: Casual, Well Groomed, Good Eye Contact, Cooperative, Polite, Good Interaction Speech: Clear, Spontaneous, Normal Rate, Normal Rhythm, Normal Volume, Normal Tone Mood: Euthymic Affect: Full and Appropriate Thought Process: Organized, Logical, Goal Directed Thought Content: No Suicidal Ideation, No Homicidal Ideation, No Delusions, No Auditory Halllucinations, No Visual Hallucinations Sensorium: Clear Cognition: Alert & Oriented-Person, Alert & Oriented-Place, Alert & Oriented- Time, Lfclp-Tzjbiaos-Rslzxskep Memory: Other (see history) Intelligence: Above Average Insight Judgment: No Intact; Good Result Diagram: 03/09/19 0549 03/11/19 0525 Additional Findings/Notes: Please see MOCA results in History. [facility] Assessment and Plan [id number] Encounter Date: Mar 11, 2019 Mizo-[id number] Encounter Time: 14:30 Problems: (1) Dementia Status: Chronic Assessment & Plan: I discussed options with the family as well as with Dr. Delia Damon. We agreed that a trial of donepazil is warrented in order to try to stabilize and possibly improve Mr. Pfeiffer's progressive memory loss. The usual starting dose is 5 mgs each evening with a plan to go up to 10 mgs in 4 weeks. We also discussed aftercare and I mentioned both Dr. Sheree Rosenberg and Dr. Radha Dodd--neurologists in [place] who could follow Mr. Pfeiffer for his memory loss. At this point, I do not believe Mr. Pfeiffer's dementia has been as rapidly progressive as I thought originally. He has only mild symptoms and his hallucinations are gone. This suggested that he does not have Lewy Body Dementia. (2) Delirium Status: Resolved Assessment & Plan: Would recommend against re-starting any psychotropic medications or medications for other indications with centrally acting properties unless clearly essential for another disease process. Careful consi deration should be given to risks over benefits. In particular, ropinerole should be avoided as well as anticholinergic medications, narcotics should be used only very sparingly and particular caution with any psychotropic medications. Condition Problem Qualifiers (1) Dementia: Dementia type: unspecified type NAHOMY BERGER DO Mar 11, 2019 18:33
[2019-03-11] MEDS: TAMSULOSIN HCL 0.4 MG CAP PO SCH (20:50)
[2019-03-11] MEDS: INSULIN HUM LISPRO 100 UN/ML 3 ML VIAL SUBQ PRN (20:53)
[2019-03-11] MEDS ORDERED: MELATONIN 3 MG TAB PO SCH (21:00)
[2019-03-11 22:36] VITALS: BP 128/61
[2019-03-11] MEDS: traMADol 50 MG TAB PO PRN (23:32)
[2019-03-12 06:01] LABS: INR 1.02
[2019-03-12 06:14] VITALS: BP 142/58
[2019-03-12] MEDS: LISINOPRIL 10 MG TAB PO SCH (08:15)
[2019-03-12] MEDS: ENOXAPARIN SC SCH (08:15)
[2019-03-12] MEDS: DIGOXIN 0.25 MG TAB PO SCH (08:15)
[2019-03-12] MEDS: DONEPEZIL HCL 5 MG TAB PO SCH (08:15)
[2019-03-12] MEDS: PANTOPRAZOLE SOD 40 MG TABEC PO SCH (08:15)
--- NOTE | 2019-03-12 10:01 | Hospitalist Progress Note ---
Subjective Progress Notes Subjective He is awake, alert, oriented. He still did not sleep much last night. Persistent RLS symptoms. Physical Exam Vital Signs Date Time Temp Pulse Resp B/P (MAP) Pulse Ox O2 Delivery O2 Flow Rate FiO2 03/12/19 08:15 70 03/12/19 08:07 92 Nasal Cannula 3.0 03/12/19 06:14 98.5 20 142/58 (86) Intake and Output 03/12/19 07:00 Intake Total 1400 ml Output Total 3575 ml Balance -2175 ml Intake Oral 1400 ml Output Urine Total 3575 ml # Bowel Movements 1 General Appearance: Alert, Awake Cardiovascular: Other (Irregular) Respiratory: Clear to Auscultation GI: Soft and Non-Tender Extremities: Warm, Perfused, Edema Result Diagram: 03/09/19 0549 03/12/19 0527 Assessment and Plan Problems: (1) Altered mental status, unspecified Status: Acute Assessment & Plan: He presented with progressive agitation, pacing, insomnia, and anger that had progressed over 2 days prior to admission. He also had visual/auditory hallucinations and vivid dreams for several weeks prior to admission. Mirapex was stopped 5 days before admission Cymbalta, Dicyclomine, and Buspar were stopped 2 days prior to admission. Tramadol was changed from tid to PRN, so only received a couple doses in the 2 days prior to admission. He was started on 25mg of Seroquel 2 days prior to admission. The acute issues were initially thought to be related to insomnia and possibly withdrawal from his chronic medications. We did restart Cymbalta at 20mg (was on 60mg), Buspar bid (was on tid). We also started Lyrica for RLS symptoms. He was given a dose of Seroquel x2 nights. Dr. Thomas did see the patient. She recommended no further antipsychotics or dopaminergic (i.e. Mirapex) related medications and to try opioids for the RLS symptoms. He did not improve, so all centrally acting medications were once again stopped. He did improve the morning after all centrally acting meds were stopped. He appeared to be mentating well. Dr. Martin evaluated the patient. She recommended that he see a neurologist at some point, but felt that a trial of donepezil might be warranted. Although he has features that could be consistent with Lewy-body dementia, many of these could be due to his previous medications such as Mirapex per Dr. Martin. The patient continues to have pain and due to CKD, can't take NSAIDs. She recommended using Tramadol only when Tylenol does not work for pain. (2) RLS (restless legs syndrome) Status: Chronic Assessment & Plan: He was on Mirapex, which has been discontinued. Will try a dose of tramadol at bedtime to see if any improvement. He appears to have tolerated it reasonably well thus far. (3) Arm pain Status: Acute Assessment & Plan: Diffuse ecchymosis on the upper medial aspect. Likely, had a small muscle injury that was worsened with warfarin use. (4) Low back pain Status: Chronic Assessment & Plan: Monitor. Will be stopping all centrally acting medications, continue Tylenol and topical therapy. Tramadol ordered to only be used for severe pain prn. (5) Atrial fibrillation Onset Date: 07/13/2014 Status: Chronic Assessment & Plan: He has been digoxin and warfarin. His warfarin was not therapeutic and he was placed on therapeutic Lovenox, given age and borderline renal function this is dosed once daily. Will now resume oral warfarin - monitor protime/INR. (6) Chronic kidney disease, stage III (moderate) Onset Date: 01/15/2015 Status: Acute Assessment & Plan: Baseline is about 1.4-1.6. This could contribute to his RLS as well. Will follow. (7) Hypertension Status: Chronic Assessment & Plan: Continue chronic lisinopril with parameters. (8) Edema Status: Chronic Assessment & Plan: He has mild edema in shins at baseline. This has worsened periodically as he sits up with his feet dependent for many hours at a time. Will work on elevating his feet regularly. Monitor. Exam Sepsis Risk: No Definite Risk Problem Qualifiers (1) Altered mental status, unspecified: Altered mental status type: disorientation Qualified Codes: R41.0 - Disorientation, unspecified (2) Arm pain: Laterality: right Qualified Codes: M79.601 - Pain in right arm AILYN DE LA CRUZ MD Mar 12, 2019 10:01
[2019-03-12] MEDS ORDERED: WARFARIN SOD 5 MG TAB PO SCH (13:00)
--- NOTE | 2019-03-12 16:00 | NUR ---
Pt off unit and unable to attain 1500 vitals. Pt stable
[2019-03-12] MEDS: ACETAMINOPHEN 500 MG TAB PO PRN (19:28)
[2019-03-12] MEDS: traMADol 50 MG TAB PO PRN (19:28)
[2019-03-12 19:32] VITALS: BP 145/56
[2019-03-12] MEDS: TAMSULOSIN HCL 0.4 MG CAP PO SCH (20:38)
[2019-03-12] MEDS: INSULIN HUM LISPRO 100 UN/ML 3 ML VIAL SUBQ PRN (20:48)
[2019-03-12] MEDS ORDERED: MELATONIN 3 MG TAB PO SCH (21:00)
[2019-03-13 00:59] VITALS: BP 149/67
[2019-03-13 06:55] VITALS: BP 161/72
[2019-03-13] MEDS: INSULIN HUM LISPRO 100 UN/ML 3 ML VIAL SUBQ PRN (07:53)
[2019-03-13] MEDS: ENOXAPARIN SC SCH (08:17)
[2019-03-13] MEDS: LISINOPRIL 10 MG TAB PO SCH (08:18)
[2019-03-13] MEDS: DIGOXIN 0.25 MG TAB PO SCH (08:18)
[2019-03-13] MEDS: PANTOPRAZOLE SOD 40 MG TABEC PO SCH (08:18)
[2019-03-13] MEDS: DONEPEZIL HCL 5 MG TAB PO SCH (08:18)
--- NOTE | 2019-03-13 11:11 | NUR ---
Physical Therapy Impression PT wounds eval complete. Pt presents with LE edema as well as wounds on bilateral distal LEs. Pt reports that he was previously seen by OP wound care for similar issues and regularly wears compression stockings. Pt has not been wearing stockings during this hospital admission. Wounds demonstrates small amounts of slough. PT completed conservative, selective debridement of non-viable tissue and slough with tweezers to the depth of the subcutaneous tissue. Wounds cleansed with sterile saline. LEs treated with moisture barrier cream and bilateral LEs wrapped with 2 layer coflex dressings, which were previously used on the pt during his outpatient wound care visits. Rec further wound care via [facility] services. Physical Therapy Goals 1: Pt to cmplete bed mobility with Neto 2: Pt to complete transfers with Neto x1 with RW 3: Pt to ambulate 100' with CGA x1 and RW 4: Pt to asc/desc 4 stairs with CGA Patient's Goals
[2019-03-13] MEDS ORDERED: BETH25TA43 PO (11:31)
[2019-03-13] MEDS ORDERED: TAMS0.4C25 PO (11:31)
--- NOTE | 2019-03-13 11:31 | CONSULTATION ---
EVENT DATE: March 13, 2019 HISTORY OF PRESENT ILLNESS This is an 83-year old white male I was asked to see by the hospitalist, Dr. Ruiz, for problem with inability to urinate satisfactorily. Recent check of post void residuals had been in 1000 cc category on multiple examinations. Patient has nocturia x2 per night but according to family may be every hour. Flow is normally steady. No intermittency but some dribbling. No dysuria or hematuria. Voids approximately every hour during the daytime, especially of late. No trouble with urinary incontinence. Urgency of urination always. Patient had been followed up for his PSAs and digital examination for years but I have not seen the patient since 2017. Reportedly, the PSAs are still in the low abnormal category according to the patient. Discussed options with the patient as to medical options for hopefully religion of satisfactory urination. and son, Gerson, were present during the interview. IMPRESSION 1. Essentially urinary retention. 2. 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 3. Elevated PSA, etiology ?. All previous biopsies have been within normal limits. PLAN 1. Replace Rocha for drainage for a few days to allow the bladder to recover. 2. Plan a trial of voiding this coming February. The home health nurse is to remove the Rocah at that time. We will start Flomax 0.4 mg b.i.d. and Urecholine 25 mg four times a day. Prescriptions were written to be given to the patient. Patient will be discharged home today to follow up this coming Wednesday with me. He already has an appointment. He well be set over to bedside drainage bag. Home health is to visit daily for care. Home health is to remove his urethral Rocha early on February. Home health to contact me if there is any problem. I gave them my phone number. I also gave the patient and the family my phone to contact me if there are any problems. Thank you for allowing me to share in the care of your patient. LUI
[2019-03-13] MEDS ORDERED: DONE5TAB29 PO (11:50)
--- NOTE | 2019-03-13 12:00 | Hospitalist Depart ---
Discharge Summary Reason for Hosp/Final Diag: (1) Altered mental status, unspecified Status: Acute Hospital Course & Plan: He presented with progressive agitation, pacing, insomnia, and anger that had progressed over 2 days prior to admission. He also had visual/auditory hallucinations and vivid dreams for several weeks prior to admission. Mirapex was stopped 5 days before admission Cymbalta, Dicyclomine, and Buspar were stopped 2 days prior to admission. Tramadol was changed from tid to PRN, so only received a couple doses in the 2 days prior to admission. He was started on 25mg of Seroquel 2 days prior to admission. The acute issues were initially thought to be related to insomnia and possibly withdrawal from his chronic medications. We did restart Cymbalta at 20mg (was on 60mg), Buspar bid (was on tid). We also started Lyrica for RLS symptoms. He was given a dose of Seroquel x2 nights. Dr. Thomas did see the patient. She recommended no further antipsychotics or dopaminergic (i.e. Mirapex) related medications and to try opioids for the RLS symptoms. He did not improve, so all centrally acting medications were once again stopped. He did improve the morning after all centrally acting meds were stopped. He appeared to be mentating well. Dr. Martin evaluated the patient. She recommended that he see a neurologist at some point, but felt that a trial of donepezil might be warranted. Although he has features that could be consistent with Lewy-body dementia, many of these could be due to his previous medications such as Mirapex per Dr. Martin. The patient continues to have pain and due to CKD, can't take NSAIDs. She recommended using Tramadol only when Tylenol does not work for pain. (2) RLS (restless legs syndrome) Status: Chronic Hospital Course & Plan: He was on Mirapex, which has been discontinued. Will try a dose of tramadol at bedtime to see if any improvement. He appears to have tolerated it reasonably well thus far. (3) Arm pain Status: Acute Hospital Course & Plan: Diffuse ecchymosis on the upper medial aspect. Likely, had a small muscle injury that was worsened with warfarin use. (4) Low back pain Status: Chronic Hospital Course & Plan: Stopped all centrally acting medications, continue Tylenol and topical therapy. Tramadol ordered to only be used for severe pain prn. (5) Atrial fibrillation Onset Date: 07/13/2014 Status: Chronic Hospital Course & Plan: He has been digoxin and warfarin. His warfarin was not therapeutic and he was placed on therapeutic Lovenox, given age and borderline renal function this is dosed once daily. Resumed oral Warfarin. (6) Chronic kidney disease, stage III (moderate) Onset Date: 01/15/2015 Status: Acute Hospital Course & Plan: Baseline is about 1.4-1.6. (7) Hypertension Status: Chronic Hospital Course & Plan: Continue chronic lisinopril with parameters. (8) Edema Status: Chronic Hospital Course & Plan: He has mild edema in shins at baseline. This has worsened periodically as he sits up with his feet dependent for many hours at a time. Will work on elevating his feet regularly. Wound care consulted, will need to continue outpatient. Departure Weight (Pounds): 280 Weight (Ounces): 2.0 Result Diagram: 03/09/19 0549 03/12/19526 Condition: Improved Discharge: Home Health PT/OT Follow Up For: PT For Strengthening, OT For ADL's, PT Evaluation and Treat, OT Evaluation and Treat Home Health RN Follow Up For: Medication Management, Nursing Assessment Home Health [facility] Follow Up For: ADL Assistance Discharge Instructions Home Meds Active Scripts Donepezil Hcl (DONEPEZIL HCL) 5 Mg Tablet, 5 MG PO QDAY for 30 Days, #30 TAB Prov:DANIS ORELLANADELBERT 03/13/19 Flash Glucose Sensor (Freestyle [place] 14 Day Sensor) 1 Each Kit, UNIT Q2WK, #2 11 Refills Prov:ELGIN MOREIRA MD 03/02/19 Flash Glucose Scanning [place] (Freestyle [place] 14 Day [place]) 1 Each Each, UNIT TD DIRECTED, #1 Prov:ELGIN MOREIRA MD 03/02/19 Lancets (ONE TOUCH LANCETS) 1 Each Each, EACH MC TID, #100 11 Refills Prov:ELGIN MOREIRA MD 03/02/19 One Touch Ultra Test Strips (ONE TOUCH ULTRA TEST STRIPS) 1 Each Strip, EACH MC ONCE, #100 11 Refills Prov:ELGIN MOREIRA MD 03/02/19 Blood-Glucose Meter (BLOOD GLUCOSE METER) 1 Each Each, EACH MC ONCE, #1 Prov:ELGIN MOREIRA MD 03/02/19 [place], Insulin Disposable (INSULIN PEN NEEDLE) 1 Each Dis.needle, EACH MC ONCE, #100 5 Refills Prov:ELGIN MOREIRA MD 03/02/19 Insulin Glargine 100 Un/Ml Pen (LANTUS SOLOSTAR PEN) 100 Unit/1 Ml Insuln.pen, 15 UNIT SQ HS, #5 BOX 3 Refills Prov:ELGIN MOREIRA MD 03/02/19 Warfarin Sodium (WARFARIN SODIUM) 5 Mg Tablet, 1 TAB PO QDAY, #90 TAB 3 Refills Prov:ELGIN MOREIRA MD 02/10/19 Digoxin (DIGOXIN) 250 Mcg Tablet, 1 TAB PO QDAY, #90 TAB 1 Refill Prov:ELGIN MOREIRA MD 01/03/19 Lisinopril (LISINOPRIL) 10 Mg Tablet, 10 MG PO QDAY, #90 TAB 3 Refills Prov:ELGIN MOREIRA MD 05/18/18 Reported Medications Tamsulosin Hcl (FLOMAX) 0.4 Mg Cap.er.24h, 0.4 MG PO BID, CAP 03/13/19 Acetaminophen (TYLENOL EXTRA STRENGTH) 500 Mg Tablet, 500 MG PO PRN for prn, TAB 03/06/19 Calcium Carbonate (TUMS) 200 Mg Tab.chew, 200 MG PO PRN for prn, TAB.CHEW 03/06/19 Omeprazole (OMEPRAZOLE) 20 Mg Tablet.dr, 1 TAB PO DAILY, #100 TAB TAKE ONE TABLET BY MOUTH TWICE A DAY 03/14/15 Metronidazole (METROGEL) 60 Gm Gel, 60 GM TOP, GEL 06/27/14 Discontinued Reported Medications Bethanechol Chloride (URECHOLINE) 25 Mg Tablet, 25 MG PO QID 03/13/19 Zinc Amino Acid Chelate (ZINC) 50 Mg Tablet, 60 MG PO DAILY 03/06/19 Mu-Vits-Min Th/Lycopene/Lutein (CENTRUM SILVER TABLET) 1 Each Tablet, 1 EACH PO DAILY 03/06/19 Magnesium Oxide (Magnesium) 400 Mg Tablet, 400 MG PO DAILY 03/06/19 Glucosamine Sulfate 2KCL (GLUCOSAMINE) 1,000 Mg Tablet, 1500 MG PO DAILY 03/06/19 Garlic (GARLIC) 400 Mg Tablet, 400 MG PO DAILY 03/06/19 Flaxseed Oil (FLAX SEED OIL) 1,000 Mg Capsule, 1300 MG PO DAILY, CAPSULE 03/06/19 [place]-3/Dha/Epa/Fish Oil (Fish Oil 500 mg Softgel) 60 Mg-90 Mg-500 Mg Capsule, 1500 MG PO DAILY 03/06/19 Calcium Polycarbophil (FIBERCON) 625 Mg Tablet, 1875 MG PO DAILY 03/06/19 Chondroitin Sulfate A Sodium (OPTIFLEX-C) 400 Mg Capsule, 1200 MG PO DAILY, CAPSULE 03/06/19 Tramadol Hcl (TRAMADOL HCL) 50 Mg Tablet, 50 MG PO TID PRN for PAIN, TAB 03/04/19 Furosemide (FUROSEMIDE) 40 Mg Tablet, 1-2 TAB PO BID, TAB 03/04/19 Aspirin/Calcium Carbonate/Mag (ASPIRIN BUFFERED 325 MG TAB) 325 Mg Tablet, 325 MG PO DAILY 07/11/15 Cholecalciferol (Vitamin D3) (VITAMIN D3) 1,000 Unit Tablet, 1000 TAB PO BID, #100 TAB 4 Refills 03/14/15 Cholecalciferol (Vitamin D3) (VITAMIN D3) 1,000 Unit Tablet, 2000 UNIT PO DAILY, TAB 03/06/19 Omeprazole Magnesium (PRILOSEC OTC) 20 Mg Tablet.dr, 1 TAB PO QDAY, TAB 03/06/19 Discontinued Scripts Quetiapine Fumarate (SEROQUEL) 25 Mg Tablet, 25 MG PO QHS, #30 TAB 3 Refills Prov:ELGIN MOREIRA MD 03/02/19 Fenofibrate (FENOFIBRATE) 160 Mg Tablet, 160 MG PO QDAY, #90 TAB 4 Refills Prov:ELGIN MOREIRA MD 02/06/19 Atenolol (ATENOLOL) 50 Mg Tablet, 1 TAB PO QDAY, #90 TAB 4 Refills Prov:ELGIN MOREIRA MD 05/19/18 Diet: Diabetic Activity: As Tolerated Special Instructions: LEG BAG AND BEDSIDE DRAINAGE BAG. HOME HEALTH TO VISIT DAILY FOR CARES. 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 HOME HEALTH TO CONTACT DR. GONZALEZ IF ANY PROBLEMS. PATIENT TO CALL DR. GONZALEZ IF ANY PROBLEMS ([phone]) FOLLOW UP WITH DR. GONZALEZ AT HIS OFFICE ON Wednesday03/17/19. Copies to: ELGIN MOREIRA MD ; Venous Thromboembolism Antithrombotics Is Pt On Any Antithrombotics?: No [id number] Certification Face to Face Home Health Certification Patient's Primary Care Provider: Elgin Moreira MD Institutional Provider conducted the [id number] encounter. Electronic Undersigning Physician Certifies Home Health. I certify that the patient has been under my care and that I had a [id number] encounter that meets the physician [id number]-[id number] encounter requirements with this patient. This patient is home-bound due to safety issues and continues to require assistance with ADL's. I certify that based on my findings, that Nursing, Aides and the following Home Health services are medically necessary: Date Face to Face Conducted: Mar 13, 2019 Problem Qualifiers (1) Altered mental status, unspecified: Altered mental status type: disorientation Qualified Codes: R41.0 - Disorientation, unspecified (2) Arm pain: Laterality: right Qualified Codes: M79.601 - Pain in right arm DELBERT DALEY DO Mar 13, 2019 12:00
--- NOTE | 2019-03-13 12:17 | NUR ---
OCCUPATIONAL THERAPY Dressing Assistance: SBA Dressing Aid Required: None Bathing Assistance: N/T with OT Home Assessment: Not Completed Feeding Assistance: Set-up Feeding Specialized Equipment: None Toilet Use: Family assisting Verbalizes Needs: Yes Understands Precautions: Yes Cooperative: Yes Family Teaching: Yes Occupational Therapy Comment:
[2019-03-13] MEDS ORDERED: WARFARIN SOD 2.5 MG TAB PO SCH (13:00)
[2019-03-16] MEDS ORDERED: FURO-47 PO (18:11)
[2019-03-16] MEDS ORDERED: TRAM-420 PO (18:13)
[2019-03-22] MEDS ORDERED: ENOX120D5 SQ (13:04)
[2019-03-24] MEDS ORDERED: GABA-547 PO (14:36)
== END 2019-03-13 13:05 | disposition home health service (06) | DRG 72 ==
LOC: ER 05:33 → MED 08:06
PROVIDERS: ADMIT Internal Medicine; ATTEND Internal Medicine
DX: G93.40 Encephalopathy, unspecified (principal); E11.22 Type 2 diabetes mellitus with diabetic chronic kidney disease; I48.91 Unspecified atrial fibrillation; N18.3 Chronic kidney disease, stage 3 (moderate); G25.81 Restless legs syndrome; M54.5 Low back pain; R60.0 Localized edema; M79.601 Pain in right arm; G89.29 Other chronic pain; R29.6 Repeated falls; F41.9 Anxiety disorder, unspecified; Z79.01 Long term (current) use of anticoagulants; I27.20 Pulmonary hypertension, unspecified; K21.9 Gastro-esophageal reflux disease without esophagitis; F32.9 Major depressive disorder, single episode, unspecified; E66.9 Obesity, unspecified; G47.00 Insomnia, unspecified; Z99.81 Dependence on supplemental oxygen; Z68.38 Body mass index [BMI] 38.0-38.9, adult; S40.021A Contusion of right upper arm, initial encounter; R33.9 Retention of urine, unspecified; R35.1 Nocturia; R44.1 Visual hallucinations; I87.303 Chronic venous hypertension (idiopathic) without complications of bilateral lower extremity; R45.1 Restlessness and agitation; F03.90 Unspecified dementia, unspecified severity, without behavioral disturbance, psychotic disturbance, mood disturbance, and anxiety; Z79.4 Long term (current) use of insulin; I12.9 Hypertensive chronic kidney disease with stage 1 through stage 4 chronic kidney disease, or unspecified chronic kidney disease; E11.40 Type 2 diabetes mellitus with diabetic neuropathy, unspecified; T50.995A Adverse effect of other drugs, medicaments and biological substances, initial encounter
CPT/HCPCS: 36415; 36416; 70551; 80162; 80305; 80320; 81001; 82040; 82247; 82310; 82374; 82435; 82565; 82947; 82948; 83540; 83550; 83735; 84075; 84132; 84155; 84295; 84443; 84450; 84460; 84484; 84520; 85025; 85610; 93005; 96374; 96375; 97161; 97166; 99284; J1200; J1650; J1815; J2060; J2270; J2405; J7030

== ENCOUNTER → 2019-03-16 | Outpatient (CLI) | payer MEDICARE ==
[2019-03-05 10:02] VITALS: BMI 38.0
[~2019-03-16] MED LIST changes: +ACET500T68 PO; +BETH25TA43 PO; +CALC-515 PO; +CALC625T57 PO; +CHON400C PO; +DONE5TAB29 PO; +FLAX100041 PO; +GLUC100026 PO; +MAGN400T10 PO; +MULT-27 PO; +OMEG-5 PO; +TAMS0.4C25 PO; +ZINC50TA2 PO; +[UNRECOGNIZED DRUG - CODE] PO
--- NOTE | 2019-03-16 18:05 | RADIOLOGY IMAGING REPORT ---
[place] [facility] [place] NAME: Casey Pfeiffer : 1935 MR: [id number] V: [id number] EXAM DATE: ORDERING PHYSICIAN: LILY HINTON TECHNOLOG[place] [facility] [place] Pfe[place] : 1935 Visit/Account:[id number] Date of Sevice: 03/16/2019 US ABD LIMITED ULTRASOUND INDICATION: Unable to urinate. COMPARISON: None available. FINDINGS/IMPRESSION: 1. Limited grayscale and color Doppler ultrasound of the urinary bladder. 2. Prevoid bladder volume measures 603.4 mL. 3. Post void bladder volume measures 692.1 mL. Report Dictated By: Christopher Galvez MD at 03/16/2019 5:59 PM Report E-Signed By: Christopher Galvez MD at 03/16/2019 6:01 PM WSN:[id number]
== END ==
LOC: RAD 15:44
PROVIDERS: ATTEND Nurse Practitioner Primary Care
DX: R33.9 Retention of urine, unspecified (principal)
CPT/HCPCS: 76705

== ENCOUNTER 2019-03-19 05:57 | Emergency (ER) | payer MEDICARE ==
[2019-03-05 10:02] VITALS: BMI 38.0
--- NOTE | 2019-03-19 06:00 | ER Report ---
History and Physical Time Seen By : 05:59 HPI/ROS CHIEF COMPLAINT:? Decreased urinary output via Rocha catheter HISTORY OF PRESENT ILLNESS: 83-year-old male presents with his son and with concerns over decreased urinary output. Patient's on Lasix 80 mg twice a day as instructed by Dr. 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 Patient's son noted that his catheter was twisted and potentially kinked between his legs. They straightened it out and there is now up the appearance of good urinary output. Patient has no shortness of breath, chest pain, abdominal pain or bladder distention. Patient has bilateral extremity edema. It has gone down significantly with the higher doses of Lasix, which were recently prescribed. Family notes his legs reduced and swelling significantly. REVIEW OF SYSTEMS: Respiratory: No cough, no dyspnea. Cardiovascular: No chest pain, no palpitations. Gastrointestinal: No vomiting, no abdominal pain. Musculoskeletal: No back pain. Allergies: Coded Allergies: No Known Drug Allergies (Verified , 03/04/19) Home Meds Active Scripts Tramadol Hcl (TRAMADOL HCL) 50 Mg Tablet, 1 TAB PO BID PRN for PAIN, #30 TAB 0 Refills Prov:LILY HINTON DNP, FNP-BC 03/16/19 Furosemide (FUROSEMIDE) 40 Mg Tablet, 1-2 TAB PO BID, #120 TAB 0 Refills Prov:LILY HINTON DNP, FNP-BC 03/16/19 Donepezil Hcl (DONEPEZIL HCL) 5 Mg Tablet, 5 MG PO QDAY for 30 Days, #30 TAB Prov:DELBERT DALEY DO 03/13/19 Flash Glucose Sensor (Freestyle [place] 14 Day Sensor) 1 Each Kit, UNIT Q2WK, #2 11 Refills Prov:ELGIN WEI MD 03/02/19 Flash Glucose Scanning [place] (Freestyle [place] 14 Day [place]) 1 Each Each, UNIT TD DIRECTED, #1 Prov:ELGIN WEI MD 03/02/19 Lancets (ONE TOUCH LANCETS) 1 Each Each, EACH MC TID, #100 11 Refills Prov:ELGIN WEI MD 03/02/19 One Touch Ultra Test Strips (ONE TOUCH ULTRA TEST STRIPS) 1 Each Strip, EACH MC ONCE, #100 11 Refills Prov:ELGIN WEI MD 03/02/19 Blood-Glucose Meter (BLOOD GLUCOSE METER) 1 Each Each, EACH MC ONCE, #1 Prov:ELGIN WEI MD 03/02/19 [place], Insulin Disposable (INSULIN PEN NEEDLE) 1 Each Dis.needle, EACH MC ONCE, #100 5 Refills Prov:ELGIN WEI MD 03/02/19 Insulin Glargine 100 Un/Ml Pen (LANTUS SOLOSTAR PEN) 100 Unit/1 Ml Insuln.pen, 15 UNIT SQ HS, #5 BOX 3 Refills Prov:ELGIN WEI MD 03/02/19 Warfarin Sodium (WARFARIN SODIUM) 5 Mg Tablet, 1 TAB PO QDAY, #90 TAB 3 Refills Prov:ELGIN WEI MD 02/10/19 Digoxin (DIGOXIN) 250 Mcg Tablet, 1 TAB PO QDAY, #90 TAB 1 Refill Prov:ELGIN WEI MD 01/03/19 Lisinopril (LISINOPRIL) 10 Mg Tablet, 10 MG PO QDAY, #90 TAB 3 Refills Prov:ELGIN WEI MD 05/18/18 Reported Medications Tamsulosin Hcl (FLOMAX) 0.4 Mg Cap.er.24h, 0.4 MG PO BID, CAP 03/13/19 Acetaminophen (TYLENOL EXTRA STRENGTH) 500 Mg Tablet, 500 MG PO PRN for prn, TAB 03/06/19 Calcium Carbonate (TUMS) 200 Mg Tab.chew, 200 MG PO PRN for prn, TAB.CHEW 03/06/19 Omeprazole (OMEPRAZOLE) 20 Mg Tablet.dr, 1 TAB PO DAILY, #100 TAB TAKE ONE TABLET BY MOUTH TWICE A DAY 03/14/15 Metronidazole (METROGEL) 60 Gm Gel, 60 GM TOP, GEL 06/27/14 Discontinued Reported Medications Bethanechol Chloride (URECHOLINE) 25 Mg Tablet, 25 MG PO QID 03/13/19 Zinc Amino Acid Chelate (ZINC) 50 Mg Tablet, 60 MG PO DAILY 03/06/19 Mu-Vits-Min Th/Lycopene/Lutein (CENTRUM SILVER TABLET) 1 Each Tablet, 1 EACH PO DAILY 03/06/19 Magnesium Oxide (Magnesium) 400 Mg Tablet, 400 MG PO DAILY 03/06/19 Glucosamine Sulfate 2KCL (GLUCOSAMINE) 1,000 Mg Tablet, 1500 MG PO DAILY 03/06/19 Garlic (GARLIC) 400 Mg Tablet, 400 MG PO DAILY 03/06/19 Flaxseed Oil (FLAX SEED OIL) 1,000 Mg Capsule, 1300 MG PO DAILY, CAPSULE 03/06/19 [place]-3/Dha/Epa/Fish Oil (Fish Oil 500 mg Softgel) 60 Mg-90 Mg-500 Mg Capsule, 1500 MG PO DAILY 03/06/19 Calcium Polycarbophil (FIBERCON) 625 Mg Tablet, 1875 MG PO DAILY 03/06/19 Chondroitin Sulfate A Sodium (OPTIFLEX-C) 400 Mg Capsule, 1200 MG PO DAILY, CAPSULE 03/06/19 Tramadol Hcl (TRAMADOL HCL) 50 Mg Tablet, 50 MG PO TID PRN for PAIN, TAB 03/04/19 Aspirin/Calcium Carbonate/Mag (ASPIRIN BUFFERED 325 MG TAB) 325 Mg Tablet, 325 MG PO DAILY 07/11/15 Cholecalciferol (Vitamin D3) (VITAMIN D3) 1,000 Unit Tablet, 1000 TAB PO BID, #100 TAB 4 Refills 03/14/15 Discontinued Scripts Quetiapine Fumarate (SEROQUEL) 25 Mg Tablet, 25 MG PO QHS, #30 TAB 3 Refills Prov:ELGIN WEI MD 03/02/19 Fenofibrate (FENOFIBRATE) 160 Mg Tablet, 160 MG PO QDAY, #90 TAB 4 Refills Prov:ELGIN WEI MD 02/06/19 Atenolol (ATENOLOL) 50 Mg Tablet, 1 TAB PO QDAY, #90 TAB 4 Refills Prov:ELGIN WEI MD 05/19/18 Past Medical/Surgical History Past Medical History Neurologic: Reports hx of: neuropathy (numbness in feet and pain in hands. gabapentin started 01/06 with change to nortriptyline 05/06. more swelling with the gabapentin. 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 ) Cardiovascular: Reports hx of: atrial fibrillation (chronic since 1982. Had cardioversion without benefit. ) edema (chronic and 2 plus in both legs. ) hyperlipidemia (Tends to low HDL of 30. didn't tolerate statins. ) hypertension (Tx for many years. ) hypertriglyceridemia other CV history (normal myoview test in 2003. ) Respiratory: Reports hx of: pulmonary hypertension (mild by echo in 2003. ) other respiratory history (peak flow 430 in 2010. ) Gastrointestinal: Reports hx of: GERD (for years. ) Genitourinary: Reports hx of: benign prostatic hypertro (Has seen Dr. Long and benign prostate bx. ) chronic renal failure (Noted in . creat 1.4 in and 1.7 in 12/06. Sees Dr. Calderon from 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 ) Musculoskeletal: Reports hx of: back pain (lumbar MRI in [address] Anguiano. Has DDD. ) neck pain (chronic. Has some numbness in fingers. Saw Dr. Yu in 2013. limited extens) Integumentary: Reports hx of: other integumentary hx (rash on chest treated with metrogel. ) Psychiatric: Reports hx of: depression (?. He feels potassium helps with mood. ) Endocrine: Reports hx of: obesity (noct. oximetry 91% in 2012. no evidence for apnea. ) other endocrine history (elevated glucose with a1c of 6.3 in 2008 so metformin started. ) Hematology/oncology: Denies hx of: prostate cancer Infectious disease: Reports hx of: other infectious disease (polio in 1946. right leg shorter and has a lift in right shoe. ) Events: REPORTS HX OF: Other events (abstracted 01/06. Annual in early 01/06. ) Reviewed Nurses Notes: Yes Old Medical Records Reviewed: Yes Hx Smoking: No Smoking Status: Never Smoker Exposure to Second Hand Smoke?: Yes (as a child ) Hx Alcohol Use: Yes Constitutional Vital Sign - Last 24 Hours 03/19/19 06:08 Temp 98.8 Pulse 90 Resp 16 B/P (MAP) 147/74 Pulse Ox 98 O2 Delivery Nasal Cannula Physical Exam General Appearance: The patient is alert, has no immediate need for airway protection and no current signs of toxicity. Vital signs stable, afebrile, pulse ox normal Eyes: Pupils equal and round no injection. Respiratory: Chest is non tender, lungs are clear to auscultation. Cardiac: regular rate and rhythm Gastrointestinal: Abdomen is soft and non tender, no masses, bowel sounds normal. Intact Rocha catheter with clear yellow urine draining Musculoskeletal: Neck: Neck is supple and non tender. Extremities have full range of motion and are non tender. Edema 2-3+ bilaterally with some mild erythema but no warmth to touch her are a few stasis ulcers on his right lower extremity Skin: No rashes or lesions. DIFFERENTIAL DIAGNOSIS: After history and physical exam differential diagnosis was considered for urinary retention including but not limited to medication side effect, neurologic causes, outflow obstruction including prostatic hypertrophy, and blood., Dehydration, blocked Rocha catheter, Medical Decision Making Data Points Result Diagram: 03/19/1927 03/19/1927 Laboratory Hematology Test 03/19/19 06:24 03/19/19 06:27 Urine Color Yellow Urine Clarity Slightly-cloudy Urine pH 5.0 pH (4.8-9.5) Urine Specific [place] 1.012 Urine Protein 100 mg/dL (NEGATIVE) Urine Glucose (UA) Negative mg/dL (NEGATIVE) Urine Ketones Negative mg/dL (NEGATIVE) Urine Blood Moderate (NEGATIVE) Urine Nitrite Negative (NEGATIVE) Urine Bilirubin Negative (NEGATIVE) Urine Urobilinogen Negative mg/dL (0.2-1.9) Urine Leukocyte Esterase Trace (NEGATIVE) Urine RBC 10 /HPF (0-2/HPF) Urine WBC 5 /HPF (0-5/HPF) Urine Squamous Epithelial Cells Many /LPF (NONE-FEW) Urine Amorphous Crystals Few /HPF Urine Bacteria Few /HPF (NONE-FEW) Urine Hyaline Casts Few /LPF (NONE-FEW) Urine Mucus None /HPF (NONE-FEW) Red Blood Count 4.23 M/uL (4.00-5.60) Mean Corpuscular Volume 86.0 fL (80.0-96.0) Mean Corpuscular Hemoglobin 28.8 pg (26.0-33.0) Mean Corpuscular Hemoglobin Concent 33.5 g/dL (32.0-36.0) Red Cell Distribution Width 16.0 % (11.5-14.5) Mean Platelet Volume 7.0 fL (7.2-11.1) Neutrophils (%) (Auto) 67.3 % (39.4-72.5) Lymphocytes (%) (Auto) 20.2 % (17.6-49.6) Monocytes (%) (Auto) 7.9 % (4.1-12.4) Eosinophils (%) (Auto) 3.9 % (0.4-6.7) Basophils (%) (Auto) 0.7 % (0.3-1.4) Nucleated RBC Relative Count (auto) 0.0 /100WBC Neutrophils # (Auto) 4.5 K/uL (2.0-7.4) Lymphocytes # (Auto) 1.3 K/uL (1.3-3.6) Monocytes # (Auto) 0.5 K/uL (0.3-1.0) Eosinophils # (Auto) 0.3 K/uL (0.0-0.5) Basophils # (Auto) 0.0 K/uL (0.0-0.1) Nucleated RBC Absolute Count (auto) 0.00 K/uL Sodium Level 137 mmol/L (137-145) Potassium Level 3.7 mmol/L (3.5-5.0) Chloride Level 102 mmol/L (98-107) Carbon Dioxide Level 28 mmol/L (22-30) Blood Urea Nitrogen 17 mg/dl (9-21) Creatinine 1.30 mg/dl (0.66-1.25) Glomerular Filtration Rate Calc 52.7 Random Glucose 102 mg/dl (75-110) Calcium Level 9.1 mg/dl (8.4-10.2) Total Bilirubin 0.3 mg/dl (0.2-1.3) Aspartate Amino Transf (AST/SGOT) 37 U/L (0-35) Alanine Aminotransferase (ALT/SGPT) 50 U/L (0-56) Alkaline Phosphatase 69 U/L (0-126) Total Protein 6.7 g/dl (6.3-8.2) Albumin 3.9 g/dl (3.5-5.0) Chemistry Test 03/19/19 06:24 03/19/19 06:27 Urine Color Yellow Urine Clarity Slightly-cloudy Urine pH 5.0 pH (4.8-9.5) Urine Specific [place] 1.012 Urine Protein 100 mg/dL (NEGATIVE) Urine Glucose (UA) Negative mg/dL (NEGATIVE) Urine Ketones Negative mg/dL (NEGATIVE) Urine Blood Moderate (NEGATIVE) Urine Nitrite Negative (NEGATIVE) Urine Bilirubin Negative (NEGATIVE) Urine Urobilinogen Negative mg/dL (0.2-1.9) Urine Leukocyte Esterase Trace (NEGATIVE) Urine RBC 10 /HPF (0-2/HPF) Urine WBC 5 /HPF (0-5/HPF) Urine Squamous Epithelial Cells Many /LPF (NONE-FEW) Urine Amorphous Crystals Few /HPF Urine Bacteria Few /HPF (NONE-FEW) Urine Hyaline Casts Few /LPF (NONE-FEW) Urine Mucus None /HPF (NONE-FEW) White Blood Count 6.7 k/uL (4.5-11.0) Red Blood Count 4.23 M/uL (4.00-5.60) Hemoglobin 12.2 g/dL (14.0-18.0) Hematocrit 36.3 % (42.0-52.0) Mean Corpuscular Volume 86.0 fL (80.0-96.0) Mean Corpuscular Hemoglobin 28.8 pg (26.0-33.0) Mean Corpuscular Hemoglobin Concent 33.5 g/dL (32.0-36.0) Red Cell Distribution Width 16.0 % (11.5-14.5) Platelet Count 366 K/uL (150-450) Mean Platelet Volume 7.0 fL (7.2-11.1) Neutrophils (%) (Auto) 67.3 % (39.4-72.5) Lymphocytes (%) (Auto) 20.2 % (17.6-49.6) Monocytes (%) (Auto) 7.9 % (4.1-12.4) Eosinophils (%) (Auto) 3.9 % (0.4-6.7) Basophils (%) (Auto) 0.7 % (0.3-1.4) Nucleated RBC Relative Count (auto) 0.0 /100WBC Neutrophils # (Auto) 4.5 K/uL (2.0-7.4) Lymphocytes # (Auto) 1.3 K/uL (1.3-3.6) Monocytes # (Auto) 0.5 K/uL (0.3-1.0) Eosinophils # (Auto) 0.3 K/uL (0.0-0.5) Basophils # (Auto) 0.0 K/uL (0.0-0.1) Nucleated RBC Absolute Count (auto) 0.00 K/uL Glomerular Filtration Rate Calc 52.7 Calcium Level 9.1 mg/dl (8.4-10.2) Total Bilirubin 0.3 mg/dl (0.2-1.3) Aspartate Amino Transf (AST/SGOT) 37 U/L (0-35) Alanine Aminotransferase (ALT/SGPT) 50 U/L (0-56) Alkaline Phosphatase 69 U/L (0-126) Total Protein 6.7 g/dl (6.3-8.2) Albumin 3.9 g/dl (3.5-5.0) Urinalysis Test 03/19/19 06:24 Urine Color Yellow Urine Clarity Slightly-cloudy Urine pH 5.0 pH (4.8-9.5) Urine Specific [place] 1.012 Urine Protein 100 mg/dL (NEGATIVE) Urine Glucose (UA) Negative mg/dL (NEGATIVE) Urine Ketones Negative mg/dL (NEGATIVE) Urine Blood Moderate (NEGATIVE) Urine Nitrite Negative (NEGATIVE) Urine Bilirubin Negative (NEGATIVE) Urine Urobilinogen Negative mg/dL (0.2-1.9) Urine Leukocyte Esterase Trace (NEGATIVE) Urine RBC 10 /HPF (0-2/HPF) Urine WBC 5 /HPF (0-5/HPF) Urine Squamous Epithelial Cells Many /LPF (NONE-FEW) Urine Amorphous Crystals Few /HPF Urine Bacteria Few /HPF (NONE-FEW) Urine Hyaline Casts Few /LPF (NONE-FEW) Urine Mucus None /HPF (NONE-FEW) ED Course/Re-evaluation ED Course Patient was minute to an examination room. H&P was done. The dental diagnoses was considered. Patient concerned about decreased urinary output. He last emptied his Rocha bag around 3 AM. There's been little accumulation. His son and him noticed that his catheter. My thinking. They straightened it out. There appears to be urine flowing at this time. Diagnostic laboratory studies and urinalysis were sent off which are unremarkable. Patient's urine output is progressing. He has no bladder distention. He'll be discharged home and advised to follow-up with Dr. Long tomorrow as planned. Decision to Disposition Date: Mar 19, 2019 Decision to Disposition Time: 06:28 Depart Departure Latest Vital Signs Vital Signs Date Time Temp Pulse Resp B/P (MAP) Pulse Ox O2 Delivery O2 Flow Rate FiO2 03/19/19 06:08 98.8 90 16 147/74 98 Nasal Cannula Impression: Primary Impression: Decreased urine output Additional Impressions: Chronic kidney disease, stage III (moderate) Lower extremity edema Condition: Improved Disposition: HOME OR SELF-CARE Referrals: ELGIN WEI MD (PCP) Patient Instructions: GENERAL ER DISCHARGE INSTRUCTIONS Additional Instructions: Follow-up with Dr. Long and your primary care doctor as planned Problem Qualifiers NEGRO JEAN DO Mar 19, 2019 06:00
[2019-03-19 06:08] VITALS: BP 147/74
[2019-03-19 06:46] LABS: PLATELET COUNT, AUTOMATED 366 K/uL (150-450)
== END 2019-03-19 06:53 | disposition home or self-care (01) ==
LOC: ER 06:03
DX: R39.198 Other difficulties with micturition (principal); N18.3 Chronic kidney disease, stage 3 (moderate); R60.0 Localized edema
CPT/HCPCS: 81001; 82040; 82247; 82310; 82374; 82435; 82565; 82947; 84075; 84132; 84155; 84295; 84450; 84460; 84520; 85025; 99282

== ENCOUNTER 2019-03-21 17:43 | Emergency (ER) | payer MEDICARE ==
[2019-03-05 10:02] VITALS: Wt 117.9 kg
[2019-03-21 18:05] VITALS: BP 132/71
--- NOTE | 2019-03-21 18:17 | ER Report ---
History and Physical Time Seen By MD: 18:17 Hx. of Stated Complaint: bleeding from catheter site HPI/ROS CHIEF COMPLAINT: Lower abdominal pain, blood coming from the catheter, pain at tip of penis HISTORY OF PRESENT ILLNESS: 83-year-old male patient presents to emergency room with complaint of lower abdominal pain, blood coming from his catheter as well as pain at the tip of his penis. Patient states that he has been having pain since this afternoon. 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 When he stood up he felt a sharp pain in his pelvis and noted blood. He did call and talk with Dr. Long his urologist. Dr. Long recommended that he increase fluid intake and see if that doesn't clear up the urine. Patient states he has some improvement in the collar of his urine, however he has had persistent pain. He states the pain has gotten worse in the lower abdomen. Patient denies any fevers, chills, nausea, vomiting or diarrhea. Allergies: Coded Allergies: No Known Drug Allergies (Verified , 03/04/19) Home Meds Active Scripts Tramadol Hcl (TRAMADOL HCL) 50 Mg Tablet, 1 TAB PO BID PRN for PAIN, #30 TAB 0 Refills Prov:LILY HINTON DNP, [facility]- 03/16/19 Furosemide (FUROSEMIDE) 40 Mg Tablet, 1-2 TAB PO BID, #120 TAB 0 Refills Prov:LILY HINTON DNP, [facility]- 03/16/19 Donepezil Hcl (DONEPEZIL HCL) 5 Mg Tablet, 5 MG PO QDAY for 30 Days, #30 TAB Prov:DELBERT DALEY DO 03/13/19 Flash Glucose Sensor (Freestyle [place] 14 Day Sensor) 1 Each Kit, UNIT Q2WK, #2 11 Refills Prov:ELGIN WEI MD 03/02/19 Flash Glucose Scanning [place] (Freestyle [place] 14 Day [place]) 1 Each Each, UNIT TD DIRECTED, #1 Prov:ELGIN WEI MD 03/02/19 Lancets (ONE TOUCH LANCETS) 1 Each Each, EACH MC TID, #100 11 Refills Prov:ELGIN WEI MD 03/02/19 One Touch Ultra Test Strips (ONE TOUCH ULTRA TEST STRIPS) 1 Each Strip, EACH MC ONCE, #100 11 Refills Prov:ELGIN WEI MD 03/02/19 Blood-Glucose Meter (BLOOD GLUCOSE METER) 1 Each Each, EACH MC ONCE, #1 Prov:ELGIN WEI MD 03/02/19 [place], Insulin Disposable (INSULIN PEN NEEDLE) 1 Each Dis.needle, EACH MC ONCE, #100 5 Refills Prov:ELGIN WEI MD 03/02/19 Insulin Glargine 100 Un/Ml Pen (LANTUS SOLOSTAR PEN) 100 Unit/1 Ml Insuln.pen, 15 UNIT SQ HS, #5 BOX 3 Refills Prov:ELGIN WEI MD 03/02/19 Warfarin Sodium (WARFARIN SODIUM) 5 Mg Tablet, 1 TAB PO QDAY, #90 TAB 3 Refills Prov:ELGIN WEI MD 02/10/19 Digoxin (DIGOXIN) 250 Mcg Tablet, 1 TAB PO QDAY, #90 TAB 1 Refill Prov:ELGIN WEI MD 01/03/19 Lisinopril (LISINOPRIL) 10 Mg Tablet, 10 MG PO QDAY, #90 TAB 3 Refills Prov:ELGIN WEI MD 05/18/18 Reported Medications Tamsulosin Hcl (FLOMAX) 0.4 Mg Cap.er.24h, 0.4 MG PO BID, CAP 03/13/19 Acetaminophen (TYLENOL EXTRA STRENGTH) 500 Mg Tablet, 500 MG PO PRN for prn, TAB 03/06/19 Calcium Carbonate (TUMS) 200 Mg Tab.chew, 200 MG PO PRN for prn, TAB.CHEW 03/06/19 Omeprazole (OMEPRAZOLE) 20 Mg Tablet.dr, 1 TAB PO DAILY, #100 TAB TAKE ONE TABLET BY MOUTH TWICE A DAY 03/14/15 Metronidazole (METROGEL) 60 Gm Gel, 60 GM TOP, GEL 06/27/14 Past Medical/Surgical History Patient has a past medical history of polio, chronic A. fib, hypertension, reflux, hiatal hernia, urinary retention, shoulder pain, arthritis, right leg fracture, back pain, diabetes, alcohol use, skin cancer. Patient denies any surgical history. Patient has a family medical history of cancer. Reviewed Nurses Notes: Yes Hx Smoking: No Smoking Status: Never Smoker Exposure to Second Hand Smoke?: Yes (as a child ) Hx Substance Use Disorder: No Hx Alcohol Use: Yes Constitutional Vital Sign - Last 24 Hours 03/21/19 18:05 Temp 98.2 Pulse 86 Resp 22 B/P (MAP) 132/71 Pulse Ox 97 O2 Delivery Nasal Cannula Physical Exam General Appearance: The patient is alert, has no immediate need for airway protection and no current signs of toxicity. Respiratory: Chest is non tender, lungs are clear to auscultation. Cardiac: regular rate and rhythm Gastrointestinal: Abdomen is soft and tender in the suprapubic region, no masses, bowel sounds normal. Musculoskeletal: Neck: Neck is supple and non tender. Extremities have full range of motion and are non tender. Skin: No rashes or lesions. : Patient has clear urine draining currently from his catheter, however he does have blood-tinged urine in the catheter bag. DIFFERENTIAL DIAGNOSIS: After history and physical exam differential diagnosis was considered for urinary retention, urinary tract infection, bladder spasms. Medical Decision Making ED Course/Re-evaluation ED Course Patient was admitted to an exam room, history and physical were obtained. Differential diagnoses were considered. On examination lungs are clear, heart is regular, abdomen is soft and tender in the suprapubic region. Per Dr. Long's recommendations a bladder scan was done which showed over thousand cc in the rea dder. The catheter was changed which showed a clot at the proximal end of the catheter. After placing it with a new catheter patient did drain out thousand cc in short order. Patient states he feels significant better. We did go ahead and monitor him for 20-30 minutes. After which time patient states he felt significantly improved and does feel like he is ready to go home. Patient will be discharged home at this time. He is to make sure he is plenty of room on his catheter when he is going to the bathroom or moving. He is to return to emergency room if condition worsens. He is to follow-up with Dr. Long as scheduled. Patient verbalized understanding and agreement with plan. Decision to Disposition Date: Mar 21, 2019 Decision to Disposition Time: 19:25 Depart Departure Latest Vital Signs Vital Signs Date Time Temp Pulse Resp B/P (MAP) Pulse Ox O2 Delivery O2 Flow Rate FiO2 03/21/19 18:05 98.2 86 22 132/71 97 Nasal Cannula Impression: Primary Impression: Obstruction of urinary catheter Additional Impression: Urinary catheter change required Condition: Improved Disposition: HOME OR SELF-CARE Referrals: ELGIN WEI MD (PCP) Patient Instructions: GENERAL ER DISCHARGE INSTRUCTIONS Additional Instructions: Increase fluid intake. Get plenty of rest. Avoid any pulling or tugging on your catheter. Follow up with Dr. Long as scheduled. Return to the ER if condition worsens. Problem Qualifiers Primary Impression: Obstruction of urinary catheter Encounter type: initial encounter Qualified Codes: T83.098A - Other mechanical complication of other urinary catheter, initial encounter LAURYN ARAIZA Mar 21, 2019 18:17
[2019-03-22] MEDS ORDERED: ENOX120D5 SQ (13:04)
[2019-03-24] MEDS ORDERED: GABA-547 PO (14:36)
== END 2019-03-21 19:36 | disposition home or self-care (01) ==
LOC: ER 18:21
DX: T83.098A Other mechanical complication of other urinary catheter, initial encounter (principal)
CPT/HCPCS: 99283

== ENCOUNTER → 2019-03-22 | Outpatient (CLI) | payer MEDICARE ==
[2019-03-05 10:02] VITALS: BMI 38.0
[~2019-03-22] MED LIST changes: +ENOX120D5 SQ
== END ==
LOC: US 00:49
PROVIDERS: ATTEND Internal Medicine
DX: I07.1 Rheumatic tricuspid insufficiency (principal); I27.20 Pulmonary hypertension, unspecified
CPT/HCPCS: 93306

== ENCOUNTER → 2019-03-22 | Outpatient (CLI) | payer MEDICARE ==
[2019-03-05 10:02] VITALS: BMI 38.0
[2019-03-22 10:22] LABS: INR 1.08
[2019-03-22 11:01] LABS: PLATELET COUNT, AUTOMATED 351 K/uL (150-450)
== END ==
LOC: LAB 09:23
PROVIDERS: ATTEND Internal Medicine
DX: I48.91 Unspecified atrial fibrillation (principal); R41.0 Disorientation, unspecified; F03.90 Unspecified dementia, unspecified severity, without behavioral disturbance, psychotic disturbance, mood disturbance, and anxiety; T83.098A Other mechanical complication of other urinary catheter, initial encounter
CPT/HCPCS: 36415; 82040; 82247; 82310; 82374; 82435; 82565; 82947; 83036; 84075; 84132; 84155; 84295; 84450; 84460; 84520; 85025; 85610

== ENCOUNTER → 2019-03-24 | Outpatient (CLI) | payer MEDICARE ==
[2019-03-05 10:02] VITALS: BMI 38.0
[~2019-03-24] MED LIST changes: +REGADENOSON 0.4 MG/5 ML SYR ONE
--- NOTE | 2019-03-25 11:56 | RADIOLOGY IMAGING REPORT ---
FACILITY: [facility] PATIENT NAME: Casey Pfeiffer : 1935 MR: [id number] V: [id number] EXAM DATE: ORDERING PHYSICIAN: ELGIN WIE TECHNOLOGIST: [place] [facility] [place]: Casey Pfeiffer : 1935 Visit/Account:[id number] Date of Sevice: 03/24/2019 EXAMINATION: Single isotope SPECT imaging with regadenoson infusion and gated SPECT imaging. DATE OF EXAMINATION: 03/24/2019. DATE OF INTERPRETATION: 03/25/2019. REQUESTING PHYSICIAN: ELGIN WEI. INDICATION: The patient is a 83-year-old male evaluated for A. Fib. PROCEDURE: After informed consent the patient received an intravenous injection of 12.1 mCi of Tc-99 m sestamibi followed at an appropriate time interval by rest imaging. The patient then subsequently received an intravenous infusion of 0.4 mg of regadenoson per protocol without complication. Resting heart rate was 58 bpm with a peak heart rate of 110 bpm. Blood pressure at rest was 173 / 70 and fo llowing infusion was 173 / 70. Baseline EKG demonstrates atrial fibrillation. There were no EKG kyung nges of ischemia following infusion. Symptoms were nonspecific. The patient then received an intrav enous injection of 31.6 mCi of Tc-99m sestamibi followed by stress imaging. RAW DATA: Examination of the summed raw data revealed a good quality study. MYOCARDIAL PERFUSION: The tomographic images demonstrate small, mild inferior defect likely secondar y to artifact, no significant ischemia or infarct. GATED IMAGES: The gated images demonstrate normal wall motion, ejection fraction 66%. IMPRESSION: 1. Good quality study 2. Normal myocardial perfusion scan. 3. Normal LV systolic function; LVEF 66%. 4. Based on the results of this exam, the patient appears to be at low risk for future cardiovascular events but remains intermediate risk due to inability to exercise. Report Dictated By: Valentino Bazzi at 03/25/2019 11:46 AM Report E-Signed By: Valentino Bazzi at 03/25/2019 11:53 AM WSN:[id number]
== END ==
LOC: NUC 00:29
PROVIDERS: ATTEND Internal Medicine
DX: I48.91 Unspecified atrial fibrillation (principal)
CPT/HCPCS: 78452; 93017; A9500; J2785

== ENCOUNTER → 2019-04-03 | Day surgery (SDC) | payer MEDICARE ==
[2019-03-05 10:02] VITALS: Ht 182.9 cm; Wt 122.5 kg
[~2019-04-03] VITALS: Ht 182.9 cm; Wt 122.5 kg
[~2019-04-03] MED LIST changes: +BELLADONNA ALK/OPIUM 60MG SUPP PR ONE; +DEXAMETHASONE SOD PHOS 10MG/ML ONE; +LIDOCAINE/SOD BICARB 8.4% SYR ID ONE; +MIDAZOLAM 2 MG/2 ML VIAL IVP PRN; +MINERAL OIL LIGHT 10 ML VIAL ONE; +NEOMYCIN/POLYMYX/BACITR 30 GM TP ONE; +NORMOSOL R SOLN(*) 1000 ML BAG 1,000 ML IV PRN; +ONDANSETRON 4 MG/2 ML VIAL ONE; +PROPOFOL EMUL(*) 10MG/ML 20 ML 20 ML ONE; -REGADENOSON 0.4 MG/5 ML SYR ONE; +cefTRIAXone(*) 2 GM VIAL 2 GM in NS(*) 0.9% 100 ML MINI-BAG 100 ML IVPB ONE
[2019-04-03 09:31] VITALS: BP 132/75
[2019-04-03 10:04] LABS: INR 1.05
--- NOTE | 2019-04-03 11:57 | NUR ---
PATIENT TOOK HIS LOVENOX THE MORNING OF THE PROCEDURE. DR. GONZALEZ CX CASE. PATIENT WAS TAKEN OUT AT 1150 VIA WHEELCHAIR.
== END ==
LOC: OR 03-27 02:30
DX: Z02.9 Encounter for administrative examinations, unspecified (principal)
CPT/HCPCS: 36415; 36416; 80162; 82948; 85610; J1100; J2405; J2704

== ENCOUNTER 2019-04-06 00:54 | Observation (INO) | payer MEDICARE ==
--- NOTE | 2019-04-03 11:54 | NUR ---
PATIENT TOOK HIS LOVENOX THE MORNING OF THE PROCEDURE. DR. GONZALEZ CX CASE. PATIENT WAS TAKEN OUT AT 1150 VIA WHEELCHAIR.
--- NOTE | 2019-04-03 11:56 | NUR ---
PREVIOUS INFO WAS ENTERED ON WRONG SURGERY DATE
[2019-04-06] VITALS (8 sets, daily range): BP systolic 111–149; BP diastolic 52–100
[~2019-04-06] VITALS: Ht 182.9 cm; Wt 125.2 kg
[~2019-04-06 00:54] MED LIST changes: -BELLADONNA ALK/OPIUM 60MG SUPP PR ONE; -DEXAMETHASONE SOD PHOS 10MG/ML ONE; -LIDOCAINE/SOD BICARB 8.4% SYR ID ONE; -MIDAZOLAM 2 MG/2 ML VIAL IVP PRN; -MINERAL OIL LIGHT 10 ML VIAL ONE; -NEOMYCIN/POLYMYX/BACITR 30 GM TP ONE; -NORMOSOL R SOLN(*) 1000 ML BAG 1,000 ML IV PRN; -ONDANSETRON 4 MG/2 ML VIAL ONE; -PROPOFOL EMUL(*) 10MG/ML 20 ML 20 ML ONE; -cefTRIAXone(*) 2 GM VIAL 2 GM in NS(*) 0.9% 100 ML MINI-BAG 100 ML IVPB ONE
[2019-04-06] MEDS ORDERED: fentaNYL CITR 100 MCG/2 ML AMP ONE ×4 (07:40→12:09)
[2019-04-06] MEDS ORDERED: PROPOFOL EMUL(*) 10MG/ML 20 ML 20 ML ONE (07:41)
[2019-04-06] MEDS ORDERED: LIDOCAINE 2% IV 100 MG/5ML SYR ONE (07:41)
[2019-04-06] MEDS ORDERED: NORMOSOL R SOLN(*) 1000 ML BAG 1,000 ML IV PRN (08:10)
[2019-04-06] MEDS ORDERED: MIDAZOLAM 2 MG/2 ML VIAL IVP PRN (08:10)
[2019-04-06] MEDS ORDERED: cefTRIAXone(*) 2 GM VIAL 2 GM in NS(*) 0.9% 100 ML MINI-BAG 100 ML IVPB ONE (08:10)
[2019-04-06] MEDS ORDERED: LIDOCAINE/SOD BICARB 8.4% SYR ID ONE (08:10)
[2019-04-06 08:25] LABS: INR 1.02
[2019-04-06] MEDS ORDERED: GENTAMICIN 80 MG/2 ML VIAL ONE (09:04)
[2019-04-06] MEDS ORDERED: ONDANSETRON 4 MG/2 ML VIAL ONE (10:40)
[2019-04-06] MEDS ORDERED: GLYCOPYRROLATE 0.2MG/ML 1 ML INJ ONE (11:53)
[2019-04-06] MEDS ORDERED: PROPANTHELINE BROMIDE 15MG TAB PO PRN (12:15)
[2019-04-06] MEDS ORDERED: GLYCOPYRROLATE 0.2MG/ML 1 ML INJ IVP PRN (12:15)
[2019-04-06] MEDS ORDERED: LR(*) 1000 ML BAG 1,000 ML IV PRN (12:15)
[2019-04-06] MEDS ORDERED: ZOLPIDEM TARTRATE 5 MG TAB PO PRN (12:15)
[2019-04-06] MEDS ORDERED: ONDANSETRON 4 MG/2 ML VIAL IVP PRN (12:15)
[2019-04-06] MEDS ORDERED: FLUSH 10 ML SYR IVP PRN (12:15)
[2019-04-06 12:19] LABS: PLATELET COUNT, AUTOMATED 234 K/uL (150-450)
--- NOTE | 2019-04-06 12:37 | OPERATIVE REPORT 1 ---
EVENT DATE: April 06, 2019 SURGEON: Jeff Long MD ANESTHESIOLOGIST: Miguel Freeman MD ANESTHESIA: General. PREOPERATIVE DIAGNOSES 1. Urinary retention. 2. 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 POSTOPERATIVE DIAGNOSES 1. Urinary retention. 2. 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 PROCEDURES PERFORMED 1. Cystourethroscopy. 2. Transurethral resection of prostate. 3. Vaporization of the prostate. DESCRIPTION OF PROCEDURE Under general anesthetic, the patient was prepped and draped in extended lithotomy position. A 21-Panendoscope was admitted through the urethra and into the bladder. The urethra was normal. The prostate showed trilobular hyperplasia, large and deep. There was a moderate median lobe with intravesical retention to the trigone. Bladder showed 4+ trabeculation. Trigone and ureteral orifices were normal. The resection was begun by resecting the median lobe back to the verumontanum. The verumontanum was narrow and linear in the ventral apical area of the prostate. The tissue was resected down to the circular fibers at the bladder neck circumferentially. Right and left lateral lobe tissue was resected and the posterior tissue was resected with a finger in the rectum. The apical tissue was resected at conclusion of the procedure. The entire prostate capsule was vaporized in its entirety. The lesion appeared to be satisfactorily controlled with coagulation. The chips were systemically evacuated from the bladder. There were no chips visible in the bladder at conclusion of the procedure. Again, the entire prostate capsule was inspected and there appeared to be no significant bleeding. Bladder filled under gravity flow as measured. The bladder measured to approximately 500 cc. At conclusion of the procedure, the bladder was refilled under gravity flow and had the scope withdrawn. There was good efflux to irrigation fluid. It cut off almost immediately upon withdrawal of the scope. The 22-Malian Rocha was placed through urethra into the bladder over catheter guide and secured without any difficulty. Irrigation was satisfactory at conclusion of the procedure. Estimated blood loss less than 200 cc to 300 cc. Patient tolerated the procedure satisfactorily and returned to the recovery room in satisfactory condition. This is an 83]-year-old white male complaining of inability to urinate and urinary retention. Patient was in congestive heart failure and diabetes was out of control approximately three to four weeks ago and the patient has recovered satisfactorily. He is oriented and has been doing very well the last week or two especially. The patient has been pre-opped for treatment of his obstructive prostate problem. That has been accomplished. See operative note for details. Patient will be ready for discharge home in the a.m. if all is going well. To force fluids 2L per day. Activities are restricted to careful ambulation. He is to continue his usual medications. He will be started back on his anticoagulation Coumadin therapy. During the interim, we will continue the Lovenox therapy. Patient will be discharged home probably on Cephalosporin, Pepcid, Pyridium and Tylenol #3 therapy. He is to continue his usual medications or as ordered by the hospitalist and his physician, Dr. Moreira. [facility] CENTERJayashree
[2019-04-06] MEDS ORDERED: NS 0.9% 3000 ML IRRIGATION BAG 3,000 ML IR ONE (13:12)
[2019-04-06] MEDS ORDERED: DONE5TAB29 PO (13:24)
[2019-04-06] MEDS: ACETAMIN/CODEINE #3 300-30 MG PO PRN (14:02)
[2019-04-06] MEDS ORDERED: GABA-547 PO (14:19)
[2019-04-06] MEDS ORDERED: FURO-47 PO (14:19)
[2019-04-06] MEDS ORDERED: traMADol 50 MG TAB PO PRN (14:40)
--- NOTE | 2019-04-06 14:49 | Hospitalist Consultation ---
History of Present Illness Requesting Physician Dr. Long Reason for Consult Medical Management Chief Complaint s/p TURP History of Present Illness He was admitted s/p TURP. It is reported the surgery went well and without complication. History Problems: (1) Hypertension Status: Chronic (2) Diabetes mellitus type 2, controlled Status: Chronic (3) BPH (benign prostatic hyperplasia) Status: Chronic (4) Atrial fibrillation Onset Date: 07/13/2014 Status: Chronic Home Meds Active Scripts Donepezil Hcl (DONEPEZIL HCL) 5 Mg Tablet, 5 MG PO QDAY for 30 Days, #90 TAB 1 Refill Prov:ELGIN WEI MD 04/06/19 Tramadol Hcl (TRAMADOL HCL) 50 Mg Tablet, 1 TAB PO BID PRN for PAIN, #30 TAB 0 Refills Prov:LILY HINTON DNP, [employer] 03/16/19 Flash Glucose Sensor (Freestyle [place] 14 Day Sensor) 1 Each Kit, UNIT Q2WK, #2 11 Refills Prov:ELGIN WEI MD 03/02/19 Flash Glucose Scanning [place] (Freestyle [place] 14 Day [place]) 1 Each Each, UNIT TD DIRECTED, #1 Prov:ELGIN WEI MD 03/02/19 Lancets (ONE TOUCH LANCETS) 1 Each Each, EACH MC TID, #100 11 Refills Prov:ELGIN WEI MD 03/02/19 One Touch Ultra Test Strips (ONE TOUCH ULTRA TEST STRIPS) 1 Each Strip, EACH MC ONCE, #100 11 Refills Prov:ELGIN WEI MD 03/02/19 Blood-Glucose Meter (BLOOD GLUCOSE METER) 1 Each Each, EACH MC ONCE, #1 Prov:ELGIN WEI MD 03/02/19 [place], Insulin Disposable (INSULIN PEN NEEDLE) 1 Each Dis.needle, EACH MC ONCE, #100 5 Refills Prov:ELGIN WEI MD 03/02/19 Insulin Glargine 100 Un/Ml Pen (LANTUS SOLOSTAR PEN) 100 Unit/1 Ml Insuln.pen, 15 UNIT SQ HS, #5 BOX 3 Refills Prov:ELGIN WEI MD 03/02/19 Digoxin (DIGOXIN) 250 Mcg Tablet, 1 TAB PO QDAY, #90 TAB 1 Refill Prov:ELGIN WEI MD 01/03/19 Lisinopril (LISINOPRIL) 10 Mg Tablet, 10 MG PO QDAY, #90 TAB 3 Refills Prov:ELGIN WEI MD 05/18/18 Reported Medications Gabapentin (GABAPENTIN) 100 Mg Capsule, 300 MG PO HS, CAPSULE 04/06/19 Furosemide (FUROSEMIDE) 40 Mg Tablet, 1 TAB PO DIRECTED, TAB 04/06/19 Enoxaparin Sodium (LOVENOX) 120 Mg/0.8 Ml Disp.syrin, 120 MG SQ Q12H TAKE YOUR LAST DOSE OF LOVENEX ON Wednesday04/05/19 IN THE MORNING. DO NOT TAKE THE MORNING OF THE SURGERY. 04/03/19 Tamsulosin Hcl (FLOMAX) 0.4 Mg Cap.er.24h, 0.4 MG PO BID, CAP 03/13/19 Acetaminophen (TYLENOL EXTRA STRENGTH) 500 Mg Tablet, 500 MG PO PRN for prn, TAB 03/06/19 Calcium Carbonate (TUMS) 200 Mg Tab.chew, 200 MG PO PRN for prn, TAB.CHEW 03/06/19 Omeprazole (OMEPRAZOLE) 20 Mg Tablet.dr, 1 TAB PO DAILY, #100 TAB TAKE ONE TABLET BY MOUTH TWICE A DAY 03/14/15 Discontinued Scripts Gabapentin (GABAPENTIN) 100 Mg Capsule, 1-3 CAP PO QHS PRN for RLS, #90 CAPSULE Prov:ELGIN WEI MD 04/04/19 Furosemide (FUROSEMIDE) 40 Mg Tablet, 1-2 TAB PO BID, #120 TAB 0 Refills Prov:LILY HINTON DNP, [employer] 03/16/19 Enoxaparin Sodium (LOVENOX) 120 Mg/0.8 Ml Disp.syrin, 120 MG SQ Q12H, #15 SYR 18 Refills start 03/22/2019 last dose on 03/26/19 am resume after surgery and oked by Surgeon Prov:ELGIN WEI MD 03/22/19 Warfarin Sodium (WARFARIN SODIUM) 5 Mg Tablet, 1 TAB PO QDAY, #90 TAB 3 Refills Prov:ELGIN WEI MD 02/10/19 Allergies: Coded Allergies: quetiapine (Verified Allergy, Intermediate, MUSCLE PAIN, DELIRIUM, 03/22/19) Patient History: FH: breast cancer MOTHER, , Age:71 BROTHER OR SISTER BROTHER OR SISTER High cholesterol MOTHER, , Age:71 Hx Smoking: No Smoking Status: Never Smoker Exposure to Second Hand Smoke?: Yes (as a child ) Caffeine Intake: Coffee, Soda Caffeine/Cups Per Day: 1-2/day OCCASIONALLY Hx Alcohol Use: Yes Hx Substance Use Disorder: No Review of Systems All Systems Reviewed/Normal: Yes, Except as Noted Exam Vital Signs Vital Signs Date Time Temp Pulse Resp B/P (MAP) Pulse Ox O2 Delivery O2 Flow Rate FiO2 04/06/19 13:21 93 20 98 04/06/19 13:15 97.6 148/80 (102) Nasal Cannula 3.5 General Appearance: Alert, Awake, No Acute Distress, Afebrile Neuro: No Gross deficits Cardiovascular: Regular Rate and Rhythm Respiratory: No Respiratory Distress, Clear to Auscultation : Other (catheter placed draining red tinged urine) Psych: Alert & Oriented X3, Appropriate Mood & Affect Medical Decision Making Data Points Result Diagram: 04/06/19 1213 04/06/19 1213 Assessment and Plan Problems: (1) S/P TURP Status: Acute Assessment & Plan: Followed by Dr. Long. (2) Hypertension Status: Chronic Assessment & Plan: Continue chronic Lisinopril. Will hold Lasix for now secondary to decreased blood pressures post-operatively. (3) Atrial fibrillation Onset Date: 07/13/2014 Status: Chronic Assessment & Plan: Continue chronic Digoxin. He is on chronic treatment with Warfarin. This was held for surgery and he was placed on Lovenox 120 mg BID. Will await to restart Lovenox until Dr. Long approves. (4) Diabetes mellitus, type 2 Assessment & Plan: Continue chronic Lantus. Will place on AC/HS blood glucose monitoring and SS insulin #2. (5) Dementia Status: Chronic Assessment & Plan: Continue chronic Donepezil. Venous Thromboembolism Antithrombotics Is Pt On Any Antithrombotics?: No Prophylaxis Tx Contraindicated Pharmacological Contraindicati: Surgical Contraindication Exam Sepsis Risk: No Definite Risk Problem Qualifiers (1) Hypertension: Hypertension type: essential hypertension Qualified Codes: I10 - Essential (primary) hypertension ANGIE WORLEY [facility] April 06, 2019 14:49
[2019-04-06] MEDS ORDERED: INSULIN HUM LISPRO 100 UN/ML 3 ML VIAL SUBQ PRN (14:50)
[2019-04-06] MEDS ORDERED: NS 0.9% 3000 ML IRRIGATION BAG 3,000 ML in NS 0.9% 3000 ML IRRIGATION BAG 3,000 ML IR PRN (16:10)
[2019-04-06] MEDS: GENTAMICIN/NS 80 MG/100 ML PB 100 ML IVPB SCH (16:37)
[2019-04-06] MEDS: NS 0.9% 3000 ML IRRIGATION BAG 3,000 ML IR PRN ×2 (17:19→23:17)
[2019-04-06] MEDS: FAMOTIDINE 20 MG TAB PO SCH (20:59)
[2019-04-06] MEDS ORDERED: INSULIN GLARGINE 100 U/ML 3 ML PEN SQ SCH (21:00)
[2019-04-06] MEDS ORDERED: GABAPENTIN 300 MG CAP PO SCH (21:00)
[2019-04-06] MEDS: DOCUSATE SODIUM 100 MG CAP PO SCH (21:00)
[2019-04-06] MEDS: NEOMYCIN/POLYMYX/BACITR OINT 1 PACKET TP SCH (21:02)
[2019-04-06] MEDS ORDERED: BELLADONNA ALKALOIDS/OPIUM 30 MG SUPP PR PRN (23:00)
[2019-04-07] MEDS: GENTAMICIN/NS 80 MG/100 ML PB 100 ML IVPB SCH ×2 (00:22→09:43)
[2019-04-07 00:23] VITALS: BP 140/83
[2019-04-07] MEDS: ACETAMIN/CODEINE #3 300-30 MG PO PRN ×2 (00:32→09:51)
[2019-04-07 02:36] VITALS: BP 130/74
[2019-04-07] MEDS: NS 0.9% 3000 ML IRRIGATION BAG 3,000 ML IR PRN (05:58)
[2019-04-07] MEDS ORDERED: BELLADONNA ALK/OPIUM 60MG SUPP PR PRN (07:25)
[2019-04-07 07:40] VITALS: BP 154/99
[2019-04-07] MEDS: FAMOTIDINE 20 MG TAB PO SCH (08:47)
[2019-04-07] MEDS: DOCUSATE SODIUM 100 MG CAP PO SCH (08:48)
[2019-04-07] MEDS: NEOMYCIN/POLYMYX/BACITR OINT 1 PACKET TP SCH (08:49)
[2019-04-07] MEDS ORDERED: LISINOPRIL 10 MG TAB PO SCH (09:00)
[2019-04-07] MEDS ORDERED: PANTOPRAZOLE SOD 40 MG TABEC PO SCH (09:00)
[2019-04-07] MEDS ORDERED: DIGOXIN 0.25 MG TAB PO SCH (09:00)
[2019-04-07] MEDS ORDERED: cefTRIAXone(*) 1 GM VIAL 1 GM in NS(*) 0.9% 100 ML MINI-BAG 100 ML IVPB SCH (09:00)
[2019-04-07] MEDS ORDERED: DONEPEZIL HCL 5 MG TAB PO SCH (09:00)
--- NOTE | 2019-04-07 10:39 | Hospitalist Progress Note ---
Subjective Progress Notes Subjective He has no complaints this morning. He states he slept well. He is hoping to go home this afternoon. Patient Complains of: Cardiovascular: No: Chest Pain Respiratory: No: Shortness of Breath Physical Exam Vital Signs Date Time Temp Pulse Resp B/P (MAP) Pulse Ox O2 Delivery O2 Flow Rate FiO2 04/07/19 08:50 86 04/07/19 07:40 98.8 16 154/99 (117) 93 Nasal Cannula 2.5 Intake and Output 04/07/19 01:00 Intake Total 01340 ml Output Total 49848 ml Balance -710 ml Intake Oral 1200 ml IV Total 200 ml Other 27721 ml Output Urine Total 1360 ml Other 79843 ml General Appearance: Alert, Awake, No Acute Distress, Afebrile Neuro: No Gross deficits Cardiovascular: Regular Rate and Rhythm Respiratory: No Respiratory Distress, Clear to Auscultation Extremities: Warm, Perfused; No Edema Psych: Alert & Oriented X3, Appropriate Mood & Affect Result Diagram: 04/06/19 1213 04/06/19 1213 Assessment and Plan Problems: (1) S/P TURP Status: Acute Assessment & Plan: Followed by Dr. Long. (2) Hypertension Status: Chronic Assessment & Plan: Continue chronic Lisinopril. Will hold Lasix for now secondary to decreased blood pressures post-operatively. (3) Atrial fibrillation Onset Date: 07/13/2014 Status: Chronic Assessment & Plan: Continue chronic Digoxin. He is on chronic treatment with Warfarin. This was held for surgery and he was placed on Lovenox 120 mg BID. Will await to restart Lovenox until Dr. Long approves. (4) Diabetes mellitus, type 2 Assessment & Plan: Continue chronic Lantus. Will place on AC/HS blood glucose monitoring and SS insulin #2. (5) Dementia Status: Chronic Assessment & Plan: Continue chronic Donepezil. Exam Sepsis Risk: No Definite Risk Problem Qualifiers (1) Hypertension: Hypertension type: essential hypertension Qualified Codes: I10 - Essential (primary) hypertension ANGIE WORLEY [employer] April 07, 2019 10:39
[2019-04-07 11:37] VITALS: BP 131/59
[2019-04-07] MEDS ORDERED: WARF5TAB23 PO (12:34)
[2019-04-07] MEDS ORDERED: CEPH500T7 PO (13:38)
[2019-04-07] MEDS ORDERED: FAMO20TA28 PO (13:38)
[2019-04-07] MEDS ORDERED: ACET-3017 PO (13:39)
[2019-04-07] MEDS ORDERED: PHEN200T32 PO (13:39)
[2019-04-07] MEDS ORDERED: DOCU-416 PO (13:39)
[2019-04-07 14:11] VITALS: Ht 182.9 cm; Wt 125.2 kg
--- NOTE | 2019-04-07 17:55 | NUR ---
Patient refused leg bag; patient and family states they prefer the regular drainage bag. Addendum: 04/07/19 at 1756 by KENDALL PEREYRA RN Amended: Links added.
[2019-04-10] MEDS ORDERED: ENOX30DI5 SQ (15:05)
== END 2019-04-07 13:12 | disposition home or self-care (01) ==
LOC: OR 00:54 → MED 13:15
DX: R33.9 Retention of urine, unspecified (principal); N40.1 Benign prostatic hyperplasia with lower urinary tract symptoms; E11.9 Type 2 diabetes mellitus without complications; I10 Essential (primary) hypertension; I48.91 Unspecified atrial fibrillation; F03.90 Unspecified dementia, unspecified severity, without behavioral disturbance, psychotic disturbance, mood disturbance, and anxiety; R60.9 Edema, unspecified; Z79.01 Long term (current) use of anticoagulants; Z79.4 Long term (current) use of insulin; Z79.899 Other long term (current) drug therapy
CPT/HCPCS: 36415; 36416; 52648; 80162; 82948; 85025; 85610; 86850; 86900; 86901; 88305; A4346; A9270; G0378; J0696; J1580; J2001; J2405; J2704; J3010; J3490; J7120; 82310; 82374; 82435; 82565; 82947; 84132; 84295; 84520; J1815

== ENCOUNTER → 2019-04-10 | Outpatient (REF) | payer MEDICARE ==
[2019-04-07 14:11] VITALS: BMI 37.4
[~2019-04-10] MED LIST changes: +ACET-3017 PO; +CEPH500T7 PO; +DOCU-416 PO; +ENOX30DI5 SQ; +FAMO20TA28 PO; +PHEN200T32 PO
== END ==
LOC: ZZIMHLAB 14:52
DX: N30.01 Acute cystitis with hematuria (principal)
CPT/HCPCS: 81001; 87088

== ENCOUNTER → 2019-04-18 | Outpatient (CLI) | payer MEDICARE ==
[2019-04-07 14:11] VITALS: BMI 37.4
[~2019-04-18] MED LIST changes: +AMOX-559 PO
--- NOTE | 2019-04-18 15:47 | EKG ---
FACILITY: [facility] - [place] PATIENT NAME: UNRULY EDWARDS : [id number] MR: [id number] V: [id number] EXAM DATE: ORDERING PHYSICIAN: ELGIN WEI TECHNOLOGIST: JOSÉ LUIS Test Reason : SOB Blood Pressure : / mmHG Vent. Rate : 075 BPM Atrial Rate : 187 BPM P-R Int : 000 ms QRS Dur : 114 ms QT Int : 402 ms P-R-T Axes : 000 -32 033 degrees QTc Int : 448 ms Atrial fibrillation Left axis deviation Abnormal ECG No previous ECGs available Confirmed by ELGIN WEI ([id number]) on 04/19/2019 2:42:27 PM Referred By: Confirmed By:ELGIN WEI
[2019-04-18 16:04] LABS: PLATELET COUNT, AUTOMATED 399 K/uL (150-450)
[2019-04-18 16:29] LABS: INR 1.06
== END ==
LOC: RESP 15:28
PROVIDERS: ATTEND Internal Medicine
DX: I48.91 Unspecified atrial fibrillation (principal); N40.0 Benign prostatic hyperplasia without lower urinary tract symptoms; E11.9 Type 2 diabetes mellitus without complications; R06.09 Other forms of dyspnea; I27.20 Pulmonary hypertension, unspecified
CPT/HCPCS: 36415; 82040; 82247; 82310; 82374; 82435; 82565; 82947; 83036; 83880; 84075; 84132; 84155; 84295; 84443; 84450; 84460; 84520; 85025; 85610

== ENCOUNTER → 2019-04-19 | Outpatient (CLI) | payer MEDICARE ==
[2019-04-07 14:11] VITALS: BMI 37.4
[~2019-04-19] MED LIST changes: +CEPH250C37 PO; +CHOL100052 PO; +MELA10TA3; +MULT1CAP59 PO; +OMEG-23 PO; +OXYGENHOME INH; +ZINC30CA2 PO; +[UNRECOGNIZED DRUG - CODE] PO
== END ==
LOC: LAB 11:30
PROVIDERS: ATTEND Internal Medicine Nephrology
DX: R60.0 Localized edema (principal); E55.9 Vitamin D deficiency, unspecified; I10 Essential (primary) hypertension; N18.3 Chronic kidney disease, stage 3 (moderate)
CPT/HCPCS: 36415; 80162; 82040; 82306; 82310; 82374; 82435; 82565; 82570; 82947; 83970; 84100; 84132; 84156; 84295; 84520; 85018

== ENCOUNTER → 2019-04-24 | Outpatient (CLI) | payer MEDICARE ==
[2019-04-07 14:11] VITALS: BMI 37.4
[~2019-04-24] MED LIST changes: -BUM2 PO; +BUME2TAB17 PO
[2019-04-24 10:30] LABS: INR 1.13
== END ==
LOC: LAB 09:52
PROVIDERS: ATTEND Pharmacist Pharmacotherapy
DX: I48.91 Unspecified atrial fibrillation (principal)
CPT/HCPCS: 36415; 85610

== ENCOUNTER → 2019-05-01 | Outpatient (CLI) | payer MEDICARE ==
[2019-04-07 14:11] VITALS: BMI 37.4
[2019-05-01 11:00] LABS: PLATELET COUNT, AUTOMATED 274 K/uL (150-450)
== END ==
LOC: LAB 10:11
PROVIDERS: ATTEND Internal Medicine Nephrology
DX: N18.3 Chronic kidney disease, stage 3 (moderate) (principal); R60.1 Generalized edema
CPT/HCPCS: 36415; 82728; 83540; 83550; 85025

== ENCOUNTER → 2019-06-12 | Outpatient (CLI) | payer MEDICARE ==
[2019-04-07 14:11] VITALS: BMI 37.4
[~2019-06-12] MED LIST changes: +FERR160T25 PO; +IPRA15SP7 NS; +TORS20TA30 PO
[2019-06-12 08:46] LABS: PLATELET COUNT, AUTOMATED 238 K/uL (150-450)
== END ==
LOC: LAB 08:28
PROVIDERS: ATTEND Internal Medicine
DX: I10 Essential (primary) hypertension (principal); E11.9 Type 2 diabetes mellitus without complications; I48.91 Unspecified atrial fibrillation; D64.9 Anemia, unspecified
CPT/HCPCS: 36415; 82040; 82247; 82310; 82374; 82435; 82465; 82565; 82947; 83036; 83718; 84075; 84132; 84155; 84295; 84443; 84450; 84460; 84478; 84520; 85025

== ENCOUNTER → 2019-06-15 | Outpatient (CLI) | payer MEDICARE ==
[2019-04-07 14:11] VITALS: BMI 37.4
[~2019-06-15] MED LIST changes: +ASPI-1471 PO; +MELA5TAB3 PO
== END ==
LOC: LAB 11:58
PROVIDERS: ATTEND Internal Medicine
DX: D64.9 Anemia, unspecified (principal); N18.3 Chronic kidney disease, stage 3 (moderate)
CPT/HCPCS: 82607; 82728; 82746; 83540; 83550